=== PATIENT | male | born 1940 | race Caucasian/White ===

== ENCOUNTER 2019-11-02 00:39 | Outpatient (CLI) | payer MEDICARE, SELFPAY | END 2019-11-02 00:40 | disposition home or self-care (01) | LOC: ANHCOVIDDT 00:39 | PROVIDERS: PCP Family Medicine; Visit Provider Internal Medicine Gastroenterology | DX: Z01.818 Encounter for other preprocedural examination (principal); Z11.59 Encounter for screening for other viral diseases | CPT/HCPCS: 87635; U0003 ==

== ENCOUNTER 2019-11-05 01:40 | Day surgery (SDC) | payer MEDICARE, SELFPAY ==
[2019-10-31 11:21] VITALS: BMI 18.3
--- NOTE | 2019-11-05 07:58 | WPDANESEPPF ---
Anes - Initial Pre Proc Eval Procedure: Operation Date: 11/05/19 09:00 Proposed Procedures p Esophagogastroduodenoscopy - Sushant Maynard MD Date/Time: 11/05/19 07:58 Surgeon: Sushant Maynard MD Pre Op Diagnosis: Dysphagia Patient Data Age: 78 Gender: M Height: 6 ft 5 in Weight: 70 kg Allergies Allergy/AdvReac Type Severity Reaction Status Date / Time Penicillins Allergy Severe difficulty Verified 10/31/19 11:11 moving legs Contrast Media Allergy Intermediate Hives Uncoded 10/31/19 11:11 Home Medications Medication Instructions Recorded Confirmed Type atorvastatin 10 mg tablet 10 mg PO DAILY 07/25/19 10/31/19 History fluticasone 250 mcg-salmeterol 50 1 inhalation INHALATION BID 07/25/19 10/31/19 History mcg/dose blistr powdr for inhalation tiotropium bromide 18 mcg capsule 1 cap INHALATION DAILY 07/25/19 10/31/19 History with inhalation device nifedipine 30 mg tablet,extended 30 mg PO DAILY 07/26/19 10/31/19 History release aspirin 325 mg PO DAILY 10/31/19 10/31/19 History lisinopril 20 mg PO DAILY 10/31/19 10/31/19 History Patient hx anesthesia problems: none Family hx anesthesia problems: none PMFSH Past Medical History Medical History (Updated 11/05/19 @ 07:58 by Soy Duval MD) CAD (coronary artery disease) CPAP (continuous positive airway pressure) dependence Essential (primary) hypertension Surgical History Surgical History (Updated 11/05/19 @ 07:58 by Soy Duval MD) Hx of CABG Family History Family History Other Family history of lung cancer Social History Social History Smoking status: Former smoker Smoking end date: 06/19/08 Anes - Eval Final PreProcedure Day of Procedure 11/05/19 07:58 Patient weight: thin Heart: regular rate and rhythm Lungs: decreased breath sounds Airway: Mallampati scale class 1 Neurological: alert and oriented Last oral intake: >/= 8 hours ASA classification: III Emergent: no Anesthetic plan: proceed Anesthesia type and monitoring: general GIVS and standard monitoring Informed Consent: The patient's anesthetic plan and its attendant risks and benefits were discussed with the patient/family/POA. Questions were solicited and answers provided to the satisfaction of the patient/family/POA.
[2019-11-05 08:03] VITALS: BP 111/75; PULSE 68; RESP 16; TEMP 36.6; O2SAT 94
[2019-11-05] MEDS: LACTATED RINGERS 1,000 ML 150 ML IV CONT (08:09)
--- NOTE | 2019-11-05 08:09 | WPDGICN ---
Assessment and Plan Assessment and plan (1) Dysphagia: Code(s): R13.10 - Dysphagia, unspecified Status: Acute Assessment and Plan: Patient has complaints of difficulty swallowing for the last 2 months. 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 Plan is for EGD to assess for to esophageal narrowing. Possible dilatation. Depending on results of this he may benefit from acid suppression and anti-reflux measures. Further recommendations will be given after endoscopy. (2) COPD mixed type: Code(s): J44.9 - Chronic obstructive pulmonary disease, unspecified Status: Acute GI Consult Note Consult date/time: 11/05/19 08:09 HPI: Jase Knight is a 78 year old male Seen in evaluation at the request of Dr. Saeid Liz. Patient reports difficulty swallowing over the last 2 months. Food will catch in the mid substernal portion of the chest. He states that will cause burning. He occasionally has emesis. He denies any overt heartburn. He has lost 20 lb over the last year. Typically weighs 185 currently approximately 165. In the past he had an endoscopy that revealed distal esophageal web. Previously advised to use PPI he no longer required this medication and has not taken it for several years. [facility] Past Medical History Medical History CAD (coronary artery disease) CPAP (continuous positive airway pressure) dependence Essential (primary) hypertension Surgical History Surgical History Hx of CABG Family History Family History Other Family history of lung cancer Social History Social History Smoking status: Former smoker Smoking end date: 06/19/08 Meds Home Medications and Allergies Home Medications Medication Instructions Recorded Confirmed Type atorvastatin 10 mg tablet 10 mg PO DAILY 07/25/19 10/31/19 History fluticasone 250 mcg-salmeterol 50 1 inhalation INHALATION BID 07/25/19 10/31/19 History mcg/dose blistr powdr for inhalation tiotropium bromide 18 mcg capsule 1 cap INHALATION DAILY 07/25/19 10/31/19 History with inhalation device nifedipine 30 mg tablet,extended 30 mg PO DAILY 07/26/19 10/31/19 History release aspirin 325 mg PO DAILY 10/31/19 10/31/19 History lisinopril 20 mg PO DAILY 10/31/19 10/31/19 History Allergies Allergy/AdvReac Type Severity Reaction Status Date / Time Penicillins Allergy Severe difficulty Verified 11/05/19 08:01 moving legs Contrast Media Allergy Intermediate Hives Uncoded 11/05/19 08:01 Vital Signs Vital Signs - 24 hr 11/05/19 08:03 Temperature 36.6 C Pulse Rate 68 Respiratory Rate 16 Blood Pressure 111/75 Pulse Oximetry 94 Exam Narrative: Exam Narrative: Physical exam reveals patient to be alert. Vital signs stable. HEENT exam unremarkable. He is anicteric. Lungs are clear to auscultation and percussion. Heart is without murmur or extra sounds. Abdominal exam bowel sounds are present soft nontender with no hepatosplenomegaly.
[2019-11-05] MEDS: BENZOCAINE (*SP) 60 ML SPRAY CAN (HURRICAINE) 1 SPRAY MUCOUS MEM (09:00)
[2019-11-05 09:13] VITALS: BP 106/66; PULSE 63; RESP 18; O2SAT 98
[2019-11-05 09:23] VITALS: BP 108/64; PULSE 72; RESP 18; O2SAT 96
[2019-11-05 09:33] VITALS: BP 93/56; PULSE 65; RESP 21; O2SAT 96
== END 2019-11-05 09:43 | disposition home or self-care (01) ==
PROVIDERS: PCP Family Medicine; Visit Provider Internal Medicine Gastroenterology
PROC: 0DJ08ZZ Inspection of Upper Intestinal Tract, Via Natural or Artificial Opening Endoscopic (ICD-10-PCS; CPT 43235; principal; 2019-11-05 09:00)
DX: K22.2 Esophageal obstruction (principal); K21.0 Gastro-esophageal reflux disease with esophagitis; K44.9 Diaphragmatic hernia without obstruction or gangrene; J44.9 Chronic obstructive pulmonary disease, unspecified; I10 Essential (primary) hypertension; I25.10 Atherosclerotic heart disease of native coronary artery without angina pectoris; G47.33 Obstructive sleep apnea (adult) (pediatric); Z87.891 Personal history of nicotine dependence; Z79.82 Long term (current) use of aspirin
CPT/HCPCS: 43235; 43450; 87635; C9803; J2001; J2704; J7120; U0003

== ENCOUNTER 2019-11-22 20:17 | Emergency (ER) | payer MEDICARE, SELFPAY ==
--- NOTE | ~2019-11-22 | CT_ITS ---
EXAMINATION: CT abdomen pelvis wo con DATE: 11/22/2019 23:33 INDICATION: Left lower quadrant abdominal pain and vomiting TECHNIQUE: Computed tomography (CT) of the abdomen and pelvis was performed without intravenous contr ast. Automated exposure control and iterative reconstruction technique were employed. The dose-length product was 272.85 mGy-cm. COMPARISON: 07/31/2017 and 12/18/2018 FINDINGS: No interval change since the most recent chest CT in small centrilobular nodules and tree-in-bud opac ities in the bilateral lower lobes likely related to chronic infection/inflammation. Moderate emphyse ma. Heart size is normal. Atherosclerotic coronary artery calcifications. Aortic valve calcification. Postoperative change of prior median sternotomy and coronary artery bypass grafting. No pericardial or pleural effusion. Moderate-sized sliding-type hiatal hernia. Cholecystectomy clips the gallbladder fossa. Hepatic and splenic calcifications likely sequela of old granulomatous disease. Pancreas and bilateral adrenal glands are normal. Bilateral renal cysts, the larger on the right measuring 8.0 cm with partially calcified thin internal septation. Normal appendix. No dilated small bowel to suggest obstruction. Fluid throughout the colon consistent with diarrhea. Numerous diverticula along the sigm oid colon which demonstrates prominent wall thickening and surrounding inflammatory stranding at the proximal sigmoid colon consistent with diverticulitis. No abscess or free intraperitoneal gas or flui d. Mild diffuse bladder wall thickening. Prostatomegaly. Several surgical clips at the right inguinal region likely related to prior vascular access. There is calcified atherosclerosis of the aorta and many of the other arteries. Abdominal aortic-biiliac endoluminal stent graft beginning immediately c audal to the level of the portion of the superior mesenteric artery and extending to the bifurcation of the bilateral common iliac arteries. Mild lumbar spondylosis with unchanged sclerotic bone island at L1. IMPRESSION: 1. Radiographic uncomplicated sigmoid diverticulitis. 2. Moderate-sized sliding-type hiatal hernia. 3. Diffuse smooth bladder wall thickening which may be related to chronic outlet obstruction from the enlarged prostate. Differential would include cystitis either acute or chronic and would correlate w ith urinalysis. 4. Multiple chronic small centrilobular nodules and tree-in-bud opacities in the bilateral lower lobe s consistent with sequela of chronic infection or inflammation. Reviewed, dictated and finalized at location A. IMPRESSION: 1. Radiographic uncomplicated sigmoid diverticulitis. 2. Moderate-sized sliding-type hiatal hernia. 3. Diffuse smooth bladder wall thickening which may be related to chronic outle t obstruction from the enlarged prostate. Differential would include cystitis e ither acute or chronic and would correlate with urinalysis. 4. Multiple chronic small centrilobular nodules and tree-in-bud opacities in th e bilateral lower lobes consistent with sequela of chronic infection or inflamm ation.
[2019-11-22 20:17] VITALS: BP 120/68; PULSE 88; RESP 15; TEMP 36.7; O2SAT 100
[2019-11-22 20:32] VITALS: BP 114/87
[2019-11-22 20:34] LABS: Basophils Absolute Auto 0.1 K/mm3 (0.0-0.1); Basophils Percent Auto 0.5 % (0.2-1.2); Eosinophils Absolute Auto 0.1 K/mm3 (0-0.3); Eosinophils Percent Auto 0.2 % (0-4.4); Hematocrit 45.9 % (42.0-52.0); Hemoglobin 14.7 g/dL (14.0-18.0); Immature Granulocyte Absolute 0.09 K/mm3 (0.00-0.031); Immature Granulocyte Percent A 0.4 % (0-0.5); Lymphocytes Absolute Auto 0.79 K/mm3 (0.9-3.2); Lymphocytes Percent Auto 3.7 % (18.3-44.2); Mean Corpuscular Hemoglobin 29.1 pg (26-34); Mean Corpuscular Volume 90.7 fl (80-100); Mean Platelet Volume 9.3 fl (7.4-10.4); Monocytes Absolute Auto 0.9 K/mm3 (0.1-0.6); Monocytes Percent Auto 4.1 % (2.6-8.5); Neutrophils Absolute Auto 19.3 K/mm3 (1.3-6.7); Neutrophils Percent Auto 91.1 % (45.5-73.1); Platelet Count Result 244 k/mm3 (150-375); Red Blood Count 5.06 M/mm3 (4.6-6.20); Red Cell Distribution Width 14.6 % (11.5-14.5); White Blood Count 21.2 K/mm3 (4.5-10.0)
[2019-11-22 20:46] LABS: Alanine Aminotransferase 15 U/L (4-50); Albumin Level 4.2 g/dL (3.5-5.1); Alkaline Phosphatase 136 U/L (38-126); Aspartate Amino Transferase 34 U/L (17-59); Bilirubin,Total 0.4 mg/dL (0.2-1.3); Blood Urea Nitrogen 26 mg/dL (9-20); Carbon Dioxide 25 mmol/L (22-30); Chloride 105 mmol/L (98-107); Estimated CRCL calculation 38 ml/min; Estimated Glomerular Filt Rate 46; Glucose 115 mg/dL (75-110); Lipase 170 U/L (23-300); Potassium 4.8 mmol/L (3.4-5.0); Sodium 137 mmol/L (137-145)
[2019-11-22 21:01] VITALS: BP 131/79
[2019-11-22 21:16] VITALS: BP 129/81
[2019-11-22 21:31] VITALS: BP 132/83
[2019-11-22 22:30] LABS: Add Urine Microscopic? YES; Appearance Urine Clear (Clear); Bacteria Urine Trace /hpf; Bilirubin Urine Negative (Negative); Blood Urine Negative (Negative); Color Urine Yellow (Yellow); Glucose Urine UA Negative (Negative); Ketones Urine Negative (Negative); Leukocyte Esterase Ur Negative LEU/UL (Negative); Mucus Urine Rare /lpf; Nitrate Urine Negative (Negative); Protein Urine 1+ mg/dL (Negative); RBC Urine 0-2 /hpf (0-2); Specific Grav Ur 1.011 (1.001-1.035); Urobilinogen Urine Negative mg/dL (<2.0); WBC Urine 0-3 /hpf
--- NOTE | 2019-11-22 22:45 | ED.ABDPAIN ---
HPI - Abdominal Pain General Chief Complaint: Abdominal Pain Stated Complaint: abd pain Time Seen by Provider: 11/22/19 22:38 Source: patient and family History of Present Illness HPI narrative: Patient presents with his daughter for 5 hours of left lower quadrant pain. Started today, and was 9 out of 10 at home. He has had some vomiting. No fever chills or sweats. He has had 2 bowel movements since this all started, and his pain is decreased to [address] Maynard is his GI specialist and he does not need another colonoscopy until he is 89 years old. He has a history of AAA repair, and bypass surgery. He still smokes cigarettes, and sometimes drinks alcohol. MD elicited complaint: abdominal pain Onset (ago): hour(s) Pain Consistency: constant Related Data Home Medications Medication Instructions Recorded Confirmed atorvastatin 10 mg tablet 10 mg PO DAILY 07/25/19 10/31/19 fluticasone 250 mcg-salmeterol 50 1 inhalation INHALATION BID 07/25/19 10/31/19 mcg/dose blistr powdr for inhalation tiotropium bromide 18 mcg capsule 1 cap INHALATION DAILY 07/25/19 10/31/19 with inhalation device nifedipine 30 mg tablet,extended 30 mg PO DAILY 07/26/19 10/31/19 release aspirin 325 mg PO DAILY 10/31/19 10/31/19 lisinopril 20 mg PO DAILY 10/31/19 10/31/19 Allergies Allergy/AdvReac Type Severity Reaction Status Date / Time Penicillins Allergy Severe difficulty Verified 11/05/19 08:01 moving legs Contrast Media Allergy Intermediate Hives Uncoded 11/05/19 08:01 Review of Systems Review of Systems: Narrative: CONSTITUTIONAL: Denies fever, chills, or sweats. EYES: Denies visual changes, redness, or discharge. ENT: Denies rhinorrhea, congestion, sore throat, or otalgia. CARDIOVASCULAR: Denies chest pain, palpitations, or edema. RESPIRATORY: Denies cough or dyspnea. GASTROINTESTINAL: Denies diarrhea. GENITOURINARY: Denies dysuria or hematuria. SKIN: Denies rash or itching. MUSCULOSKELETAL: Denies back pain, joint pain, or myalgia. NEUROLOGIC: Denies headache, numbness, or weakness. PSYCHIATRIC: Denies anxiety or depression. [facility] Past Medical History Medical History CAD (coronary artery disease) CPAP (continuous positive airway pressure) dependence Essential (primary) hypertension Surgical History Surgical History Hx of CABG Social History Social History Smoking status: Former smoker Smoking end date: 06/19/08 Gender identity (if verbalized by the patient): Male Exam Narrative: Exam Narrative: GENERAL: Well-appearing, well-nourished, and in no acute distress. Very thin HEAD: Normocephalic, atraumatic. EYES: PERRLA and EOMI. ENT: Nares clear, no rhinorrhea or epistaxis. Mucous membranes moist. NECK: Supple. CHEST: Clear to auscultation. No respiratory distress. HEART: Regular rate and rhythm. No murmur heard. Normal peripheral pulses. ABDOMEN: Soft, nontender, nondistended, normal active bowel sounds. EXTREMITIES: Normal range of motion. No edema. SKIN: Warm, dry, no rash. NEURO: No focal deficits. Alert and oriented x3. PSYCH: Normal mood and affect. Course Reevaluation(s) Reevaluation #1: Went in to tell the patient and his daughter that his CAT scan shows diverticulitis and hiatal hernia. He is no longer vomiting and would prefer to go home and take his antibiotics at home. I warned him to return if he starts vomiting cannot hold on his antibiotics, or if the pain gets worse, like an appendix would. They agree. His pain is currently 4 out of 10. Date: 11/23/19 Time: 00:07 Vital Signs Vital signs: Vital Signs Temperature 98.1 F 11/22/19 20:17 Pulse Rate 88 11/22/19 20:17 Respiratory Rate 15 11/22/19 20:17 Blood Pressure 120/68 11/22/19 20:17 Pulse Oximetry 100 11/22/19 20:17 Temperature 98.1 F 11/22/19
[2019-11-22] MEDS: CIPROFLOXACIN 400 MG/D5W 200ML 200 ML 200 MG IVPB (22:51)
[2019-11-22 22:54] VITALS: BP 103/66; PULSE 101; RESP 15; O2SAT 92
[2019-11-23] MEDS: metroNIDAZOLE 500 MG/ISO 100ML 500 MG/100 ML BAG 100 MG IVPB (00:22)
[2019-11-23 00:23] VITALS: BP 100/80; PULSE 91; RESP 15; O2SAT 97
[2019-11-23 01:20] VITALS: BP 124/82; PULSE 88; RESP 14; O2SAT 98
== END 2019-11-23 01:20 | disposition home or self-care (01) ==
PROVIDERS: Emergency Provider Emergency Medicine; PCP Family Medicine
DX: K57.92 Diverticulitis of intestine, part unspecified, without perforation or abscess without bleeding (principal); I10 Essential (primary) hypertension; I25.10 Atherosclerotic heart disease of native coronary artery without angina pectoris; Z95.1 Presence of aortocoronary bypass graft; K44.9 Diaphragmatic hernia without obstruction or gangrene; R93.41 Abnormal radiologic findings on diagnostic imaging of renal pelvis, ureter, or bladder; Z79.82 Long term (current) use of aspirin
CPT/HCPCS: 36415; 51701; 74176; 80053; 81001; 83690; 85025; 96365; 96368; 99284; J0744

== ENCOUNTER → 2020-01-09 09:09 | Outpatient (CLI) | payer MEDICARE, SELFPAY ==
--- NOTE | ~2020-01-09 | CT_ITS ---
EXAMINATION:CT lung screening DATE: 01/09/2020 09:47 INDICATION: Personal history of nicotine dependence. Smoker who quit in June with 30 pack year his tory. TECHNIQUE: Computed tomography (CT) of the chest was performed without intravenous contrast. Automate d exposure control and iterative reconstruction technique were employed. The dose-length product (DLP ) was 77.74 mGy-cm. COMPARISON: Chest CT 12/18/2018 FINDINGS: There is moderate emphysema. There is mucous plugging in the lower lobes. There are mild gr oundglass opacities in the lower lobes, left worse than right, likely atelectasis. There is a 3 mm no dule in left lower lobe. There are chronic peripheral airspace opacities in right upper lobe and supe rior segment right lower lobe, likely scarring. There is paramediastinal mild scarring in the upper l obes anteriorly. No pleural effusion. The heart size is normal. There are coronary artery calcificati ons. No pericardial effusion. There is a moderate-sized sliding hiatal hernia. There are cysts in rig ht kidney measuring up to 4.1 cm. There is a stent graft in abdominal aorta. There are changes of cho lecystectomy. There is severe thoracic spondylosis. There is a chronic sclerotic lesion in L1 vertebr al body, likely a hemangioma. IMPRESSION: 1. Lung-RADS category 2: Benign appearance or behavior. Continue annual screening with noncontrast lo w-dose chest CT in 12 months. Reviewed, dictated and finalized at location A. IMPRESSION: 1. Lung-RADS category 2: Benign appearance or behavior. Continue annual screeni ng with noncontrast low-dose chest CT in 12 months.
== END ==
PROVIDERS: PCP Family Medicine; Visit Provider Internal Medicine Critical Care Medicine
DX: Z12.2 Encounter for screening for malignant neoplasm of respiratory organs (principal); Z87.891 Personal history of nicotine dependence
CPT/HCPCS: G0297

== ENCOUNTER 2021-09-19 17:26 | Emergency (ER) | payer MEDICARE, SELFPAY ==
[2021-09-19] VITALS (19 sets, daily range): BP systolic 140–158; BP diastolic 75–85; PULSE 58–73; RESP 11–22; TEMP 36.5; O2SAT 95–100
--- NOTE | ~2021-09-19 | CT_ITS ---
EXAMINATION: Sushant Levi, DO DATE: 09/19/2021 18:54 INDICATION: Upper abdominal pain. TECHNIQUE: Computed tomographic angiography (CTA) of the chest, abdomen, and pelvis was performed wit h 100 mL Omnipaque-350 intravenous contrast. Automated exposure control and iterative reconstruction technique were employed. The dose-length product was 492.78 mGy-cm. Maximum intensity projection 3D-r econstructions of the aorta and other arteries were constructed by the technologist on a separate wor kstation. COMPARISON: Chest CT 01/09/2020, CT abdomen and pelvis 11/22/2019, 07/31/17 FINDINGS: CHEST CTA: There is moderate emphysema. There are worsened airspace and groundglass opacities and centrilobular nodules involving the lower lobes, left worse than right, consistent with pneumonia. There is materia l in bronchi in the lower lobes. There is mild scarring at left lung apex. There are centrilobular no dules in anterior segment left upper lobe, consistent with pneumonia. Again seen is peripheral scarri ng in right upper lobe. No pleural effusion. Tracheomegaly is noted. The heart size is normal. There are coronary artery calcifications. There are changes of coronary artery bypass grafting. No pericard ial effusion. There is mild mediastinal lymphadenopathy, likely reactive. There is a large sliding hi atal hernia. There is severe cervical spondylosis and moderate thoracic spondylosis. ABDOMEN AND PELVIS CTA: Calcifications in the liver consistent with old granulomatous disease. There are multiple chronic hyp erenhancing masses in the liver measuring up to 15 mm, likely focal nodular hyperplasia or hemangioma s. There is mild intrahepatic duct dilatation and dilatation of the common duct to 15 mm, worsened fr om 12 mm on 11/22/19. The pancreatic duct is mildly dilated. Right adrenal gland is normal. There is th ickening of left adrenal gland, likely benign. There is cortical thinning of the kidneys. There are c ysts in the kidneys measuring up to 8.6 cm on the right. The prostate is moderately enlarged. There i s diverticulosis of the colon without evidence of diverticulitis. The appendix is normal. There are n o pathologically enlarged lymph nodes. There is no free intraperitoneal fluid. There is a fusiform an eurysm of infrarenal aorta measuring 3.4 cm with stent graft in expected position, stable from 8. No endoleak. There is no significant stenosis of celiac axis, superior mesenteric artery, or right renal artery. There is moderate stenosis of left renal artery origin. There is severe lumbar spondyl osis. IMPRESSION: 1. Pneumonia involving the lower lobes and left upper lobe, worst in left lower lobe. 2. Moderate emphysema. 3. Mild mediastinal lymphadenopathy, likely reactive. 4. Large sliding hiatal hernia. 5. 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 No endo leak. 6. 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 7. Mild intrahepatic and extrahepatic biliary duct dilatation and mildly dilatated pancreatic duct, w orsened from 11/22/19. Reviewed, dictated and finalized at location E. IMPRESSION: 1. Pneumonia involving the lower lobes and left upper lobe, worst in left lower lobe. 2. Moderate emphysema. 3. Mild mediastinal lymphadenopathy, likely reactive. 4. Large sliding hiatal hernia. 5. Stable 3.4 cm fusiform aneurysm of infrarenal aorta with stent graft in expe cted position. No endoleak. 6. 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 7. Mild intrahepatic and extrahepatic biliary duct dilatation and mildly dilata flavia pancreatic duct, worsened from 11/22/19.
--- NOTE | ~2021-09-19 | XR_ITS ---
EXAMINATION: XR chest 2V DATE: 09/19/2021 18:27 INDICATION: Chest pain. TECHNIQUE: Frontal and lateral views of the chest were obtained. COMPARISON: Chest 2 views 06/16/2015, chest CT 01/09/2020 FINDINGS: There is chronic scarring at the lung apices, right worse than left. There are airspace opa cities in left lower lung zone. No pleural effusion or pneumothorax. The heart size is normal. Median sternotomy wires and mediastinal surgical clips are seen, likely from prior coronary artery bypass g rafting. There is a large hiatal hernia. There is a stent graft in abdominal aorta. There is an old h ealed fracture of left clavicle. IMPRESSION: 1. Airspace opacities in left lower lung zone, consistent with atelectasis/scarring versus pneumonia. 2. Chronic scarring at the lung apices, right worse than left. 3. Large hiatal hernia. Reviewed, dictated and finalized at location E. IMPRESSION: 1. Airspace opacities in left lower lung zone, consistent with atelectasis/scar ring versus pneumonia. 2. Chronic scarring at the lung apices, right worse than left. 3. Large hiatal hernia.
--- NOTE | 2021-09-19 17:34 | ECG_ITS ---
Measurements Intervals Inlet Rate: 58 P: -76 NH: 146 QRS: 41 QRSD: 137 T: -56 QT: 483 QTc: 476 Interpretive Statements ECTOPIC ATRIAL BRADYCARDIA INTRAVENTRICULAR CONDUCTION DELAY Electronically Signed On 09-20-2021 14:26:12 CDT by Dante Cornelius M.D.
--- NOTE | 2021-09-19 17:44 | ED.ABDPAIN ---
HPI - Abdominal Pain General Chief Complaint: Chest Pain <Sushant Levi DO - Last Filed: 09/19/21 18:52> Stated Complaint: chest pain <Sushant Levi DO - Last Filed: 09/19/21 18:52> Time Seen by Provider: 09/19/21 17:36 <Sushant Levi DO - Last Filed: 09/19/21 18:52> Source: patient and family <Sushant Levi DO - Last Filed: 09/19/21 18:52> Mode of arrival: ambulatory <Sushant Levi DO - Last Filed: 09/19/21 18:52> History of Present Illness HPI narrative: 80-year-old male presents emergency room secondary to acute onset of upper abdominal pain in the epigastric region. Started short-term prior to come to emergency room. Corneas family member got extremely pale at the time of the onset of the pain. Patient does have an extensive history of coronary artery disease having undergone four-vessel coronary artery bypass grafting many years ago. Since that time he said no additional problems with his cardiac issues. 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 He points just to the epigastric region is where the pain is he is having pain into his back. However he states he chronically has some pain in the back and not sure that this is any different. He denies any pressure across his chest. And denies any radiation of pain to his arms or legs. He has got no associated shortness of breath. <Sushant Levi DO - Last Filed: 09/19/21 18:52> Related Data Home Medications: Home Medications Medication Instructions Recorded Confirmed aspirin 325 mg tablet 325 mg PO .qod tablet 11/09/20 07/14/21 fluticasone 250 mcg-salmeterol 50 1 inh INHALATION BID 05/06/21 07/14/21 mcg/dose blistr powdr for inhalation lisinopril 10 mg tablet 10 mg PO DAILY 05/06/21 07/14/21 <Sushant Levi DO - Last Filed: 09/19/21 18:52> Allergies/Adverse Reactions: Allergies Allergy/AdvReac Type Severity Reaction Status Date / Time Penicillins Allergy Severe difficulty Verified 07/14/21 10:42 moving legs Contrast Media Allergy Intermediate Hives Uncoded 09/19/21 18:11 <Sushant Levi DO - Last Filed: 09/19/21 18:52> Review of Systems Review of Systems: CONSTITUTIONAL: Denies fever, chills, or sweats. EYES: Denies visual changes, redness, or discharge. ENT: Denies rhinorrhea, congestion, sore throat, or otalgia. CARDIOVASCULAR: Denies chest pain, palpitations, or edema. RESPIRATORY: Denies cough or dyspnea. GASTROINTESTINAL: As noted in the HPI patient has epigastric abdominal pain. Has no associated nausea, vomiting, or diarrhea GENITOURINARY: Denies dysuria or hematuria. SKIN: Denies rash or itching. MUSCULOSKELETAL: Denies back pain, joint pain, or myalgia. NEUROLOGIC: Denies headache, numbness, or weakness. PSYCHIATRIC: Denies anxiety or depression. <Sushant Levi DO - Last Filed: 09/19/21 18:52> [facility] Past Medical History Medical History: Medical History CAD (coronary artery disease) Coronary artery disease CPAP (continuous positive airway pressure) dependence Essential (primary) hypertension Gastroesophageal reflux disease with stricture Heart attack High blood pressure High cholesterol CEDRIC on CPAP Seborrheic keratoses <Sushant Levi DO - Last Filed: 09/19/21 18:52> Surgical History Surgical History: Surgical History H/O abdominal surgery H/O heart bypass surgery Hx of CABG <Sushant Levi DO - Last Filed: 09/19/21 18:52> Family History Family History: Family History Mother Family history of lung cancer Father Non-Hodgkin lymphoma <Sushant Levi DO - Last Filed: 09/19/21 18:52> Social History Social History: Social History Smoking pa
[2021-09-19] MEDS: ASPIRIN 81 MG CHEWABLE TABLET 324 MG PO (17:45)
[2021-09-19 17:46] LABS: Basophils Absolute Auto 0.1 K/mm3 (0.0-0.1); Basophils Percent Auto 0.8 % (0.2-1.2); Eosinophils Absolute Auto 0.1 K/mm3 (0-0.3); Eosinophils Percent Auto 1.4 % (0-4.4); Hemoglobin 12.6 g/dL (14.0-18.0); Immature Granulocyte Absolute 0.03 K/mm3 (0.00-0.031); Immature Granulocyte Percent A 0.3 % (0-0.5); Lymphocytes Absolute Auto 1.82 K/mm3 (0.9-3.2); Mean Corpuscular HGB Conc 31.5 g/dl (32-36); Mean Corpuscular Hemoglobin 28.6 pg (26-34); Mean Corpuscular Volume 90.7 fl (80-100); Mean Platelet Volume 9.1 fl (7.4-10.4); Monocytes Absolute Auto 0.7 K/mm3 (0.1-0.6); Monocytes Percent Auto 6.9 % (2.6-8.5); Neutrophils Absolute Auto 6.9 K/mm3 (1.3-6.7); Neutrophils Percent Auto 71.6 % (45.5-73.1); Platelet Count Result 213 k/mm3 (150-375); Red Blood Count 4.41 M/mm3 (4.6-6.20); Red Cell Distribution Width 15.2 % (11.5-14.5); White Blood Count 9.6 K/mm3 (4.5-10.0)
[2021-09-19] MEDS: diphenhydrAMINE HCl INJ 50 MG/ML VIAL 25 MG IV PUSH (18:08)
[2021-09-19 18:09] LABS: Troponin I < 0.012 ng/mL (0.000-0.034)
[2021-09-19 18:11] LABS: INR 1.1
[2021-09-19 18:12] LABS: Partial Thromboplastin Time 36.9 SECONDS (22.3-36.8)
[2021-09-19 18:39] LABS: Alanine Aminotransferase 20 U/L (4-50); Albumin Level 3.9 g/dL (3.5-5.1); Alkaline Phosphatase 139 U/L (38-126); Anion Gap 5 mmol/L (8-16); Aspartate Amino Transferase 50 U/L (17-59); Bilirubin,Total 0.5 mg/dL (0.2-1.3); Blood Urea Nitrogen 22 mg/dL (9-20); Calcium 8.4 mg/dL (8.4-10.2); Carbon Dioxide 24 mmol/L (22-30); Chloride 108 mmol/L (98-107); Estimated CRCL calculation 51 ml/min; Estimated Glomerular Filt Rate > 60; Glucose 104 mg/dL (65-110); Lipase 125 U/L (23-300); Potassium 4.3 mmol/L (3.4-5.0); Sodium 137 mmol/L (137-145)
[2021-09-19 20:52] LABS: Troponin I < 0.012 ng/mL (0.000-0.034)
== END 2021-09-19 21:50 | disposition home or self-care (01) ==
PROVIDERS: Emergency Medicine; Emergency Provider Emergency Medicine; PCP Family Medicine
DX: R10.13 Epigastric pain (principal); J18.9 Pneumonia, unspecified organism; I25.10 Atherosclerotic heart disease of native coronary artery without angina pectoris; I10 Essential (primary) hypertension; I25.2 Old myocardial infarction; E78.00 Pure hypercholesterolemia, unspecified; G47.33 Obstructive sleep apnea (adult) (pediatric); Z79.82 Long term (current) use of aspirin; Z95.1 Presence of aortocoronary bypass graft; F17.210 Nicotine dependence, cigarettes, uncomplicated; K44.9 Diaphragmatic hernia without obstruction or gangrene; J43.9 Emphysema, unspecified; I71.4 Abdominal aortic aneurysm, without rupture; I70.1 Atherosclerosis of renal artery; R93.2 Abnormal findings on diagnostic imaging of liver and biliary tract; R00.1 Bradycardia, unspecified; I45.9 Conduction disorder, unspecified
CPT/HCPCS: 36415; 71046; 71275; 74174; 80053; 83690; 84484; 85025; 85610; 85730; 93005; 96374; 99284; A9270; J1200; Q9967

== ENCOUNTER → 2021-11-11 07:21 | Outpatient (CLI) | payer MEDICARE, SELFPAY ==
--- NOTE | ~2021-11-11 | XR_ITS ---
XR chest 2V DATE: 11/11/2021 08:02 INDICATION: Pneumonia TECHNIQUE: 2 views COMPARISON: 09/19/2021 2 view chest 01/09/2020 CT lung screening FINDINGS: Prominent bilateral hyperinflation with increased retrosternal airspace, flattening of the diaphragm, consistent with prominent emphysema. Chronic pulmonary and pleural scarring in the right upper chest. No pulmonary infiltrate or consolidation or pulmonary mass lesion is evident. No pleural effusion or pulmonary vascular congestion or pneumothorax. Status post sternotomy and coronary artery bypass graft surgery. Heart size is within normal range. Is aortic calcification. Moderate hiatal hernia. Diffuse osteopenia. IMPRESSION: Severe COPD; no active pulmonary disease Prominent bony pleural scarring, right apical area Status post sternotomy/CABG and aortic atherosclerosis Hiatal hernia Reviewed, dictated and finalized at location A.
== END ==
PROVIDERS: PCP Family Medicine; Visit Provider Nurse Practitioner Family
DX: J18.9 Pneumonia, unspecified organism (principal); J44.9 Chronic obstructive pulmonary disease, unspecified; Z95.1 Presence of aortocoronary bypass graft; K44.9 Diaphragmatic hernia without obstruction or gangrene; Z98.890 Other specified postprocedural states
CPT/HCPCS: 71046

== ENCOUNTER 2021-12-07 13:50 | Outpatient (CLI) | payer MEDICARE, SELFPAY ==
--- NOTE | ~2021-12-07 | XR_ITS ---
EXAMINATION: XR chest 2V DATE: 12/07/2021 11:50 INDICATION: Anemia, unspecified. TECHNIQUE: Frontal and lateral views of the chest were obtained. COMPARISON: Chest 2 views 11/11/2021, chest CT 09/19/2021 FINDINGS: The lungs are hyperexpanded with lucencies, consistent with emphysema. Again seen is asymme tric scarring at right lung apex. There are airspace opacities in the lower lung zones. No pleural ef fusion or pneumothorax. The heart size is normal. Median sternotomy wires and mediastinal surgical cl ips are seen, likely from prior coronary artery bypass grafting. There is a large hiatal hernia. Part ially visualized is a stent graft in abdominal aorta. IMPRESSION: 1. Worsened airspace opacities in the lower lung zones, consistent with pneumonia. 2. Emphysema. 3. Stable scarring at right lung apex. 4. Large hiatal hernia. Reviewed, dictated and finalized at location A. IMPRESSION: 1. Worsened airspace opacities in the lower lung zones, consistent with pneumon ia. 2. Emphysema. 3. Stable scarring at right lung apex. 4. Large hiatal hernia.
[2021-12-07 11:46] LABS: Hematocrit 39.7 % (42.0-52.0); Mean Corpuscular HGB Conc 32.7 g/dl (32-36); Mean Corpuscular Hemoglobin 28.8 pg (26-34); Mean Corpuscular Volume 87.8 fl (80-100); Mean Platelet Volume 9.3 fl (7.4-10.4); Platelet Count Result 267 k/mm3 (150-375); Red Blood Count 4.52 M/mm3 (4.6-6.20); White Blood Count 10.3 K/mm3 (4.5-10.0)
[2021-12-07 12:01] LABS: Alanine Aminotransferase 65 U/L (6-50); Albumin Level 3.6 g/dL (3.5-5.1); Alkaline Phosphatase 108 U/L (38-126); Anion Gap 7 mmol/L (8-16); Aspartate Amino Transferase 65 U/L (17-59); Bilirubin,Total 0.7 mg/dL (0.2-1.3); Blood Urea Nitrogen 23 mg/dL (9-20); Calcium 8.6 mg/dL (8.4-10.2); Carbon Dioxide 26 mmol/L (22-30); Chloride 103 mmol/L (98-107); Estimated Glomerular Filt Rate > 60; Glucose 102 mg/dL (65-110); Potassium 4.5 mmol/L (3.4-5.0); Sodium 136 mmol/L (137-145)
== END 2021-12-07 13:51 | disposition home or self-care (01) ==
PROVIDERS: PCP Family Medicine; Visit Provider Nurse Practitioner
DX: D64.9 Anemia, unspecified (principal); R53.83 Other fatigue; L98.9 Disorder of the skin and subcutaneous tissue, unspecified; R13.10 Dysphagia, unspecified; R06.02 Shortness of breath; R05.8 Other specified cough; J44.9 Chronic obstructive pulmonary disease, unspecified; R09.3 Abnormal sputum
CPT/HCPCS: 36415; 71046; 80053; 82248; 85027; 87070; 87205

== ENCOUNTER 2021-12-09 00:50 | Day surgery (SDC) | payer MEDICARE, SELFPAY ==
[2021-12-08 14:20] VITALS: BMI 16.4
--- NOTE | 2021-12-09 07:34 | WPDANESEPPF ---
Anes - Initial Pre Proc Eval Procedure: Operation Date: 12/09/21 10:45 Proposed Procedures p Esophagogastroduodenoscopy - Sushant Maynard MD Date/Time: 12/09/21 07:34 Surgeon: Sushant Maynard MD Pre Op Diagnosis: dysphagia Patient Data Age: 81 Gender: M Height: 1.93 m Weight: 61.23 kg Allergies Allergy/AdvReac Type Severity Reaction Status Date / Time Penicillins Allergy Severe difficulty Verified 12/09/21 09:37 moving legs Iodinated Contrast Media Allergy Intermediate Hives Verified 12/09/21 09:37 Home Medications Medication Instructions Recorded Confirmed Type tiotropium bromide 18 mcg capsule 1 cap inhalation DAILY 1 month #30 05/21/20 12/08/21 Rx with inhalation device (Spiriva caps with HandiHaler) aspirin 325 mg tablet 325 mg PO 3XW 11/09/20 12/08/21 History fluticasone 250 mcg-salmeterol 50 1 inh inhalation BID 05/06/21 12/08/21 History mcg/dose blistr powdr for inhalation (Advair Diskus) omeprazole 20 mg capsule,delayed 20 mg PO DAILY #90 caps 05/24/21 12/08/21 Rx release atorvastatin 10 mg tablet 10 mg PO DAILY #90 tabs 10/23/21 12/08/21 Rx lisinopril 20 mg tablet 20 mg PO DAILY #90 tabs 10/25/21 12/08/21 Rx nifedipine 30 mg tablet,extended 30 mg PO DAILY #90 tabs 11/21/21 12/08/21 Rx release albuterol sulfate 90 mcg/actuation 1 - 2 puff inhalation Q4-6H PRN 12/07/21 12/08/21 Rx aerosol inhaler shortness of breath or wheezing #8.5 grams levofloxacin 500 mg tablet 500 mg PO DAILY 5 days #5 tabs 12/07/21 12/08/21 Rx Patient hx anesthesia problems: none Family hx anesthesia problems: none Results Review: All pre-operative results and documents have been reviewed as part of the pre-operative evaluation. [facility] Past Medical History Medical History (Updated 12/09/21 @ 07:35 by Juvencio Lira DO) Abdominal aortic aneurysm (AAA) repaired in 2014 CAD (coronary artery disease) Coronary artery disease CPAP (continuous positive airway pressure) dependence Essential (primary) hypertension Gastroesophageal reflux disease with stricture Heart attack High blood pressure High cholesterol Hospital discharge follow-up Iron deficiency CEDRIC on CPAP Seborrheic keratoses SOB (shortness of breath) Weight loss Surgical History Surgical History H/O abdominal surgery H/O heart bypass surgery Hx of CABG Family History Family History Mother Family history of lung cancer Father Non-Hodgkin lymphoma Social History Social History Smoking packs per day: 2 Smoking cigarettes per day: 40.0 Years smoked: 60 Smoking pack-years: 120.00 Smoking status: Former smoker Tobacco type: cigarettes Alcohol intake: current Alcohol use details: rare Substance use: never Substance use type: does not use Living arrangements: with family Gender identity (if verbalized by the patient): Male Spiritual care concerns: No Agree to blood products: Yes Anes - Eval Final PreProcedure Day of Procedure 12/09/21 07:34 Patient weight: cachectic Heart: regular rate and rhythm Lungs: clear to auscultation Airway: Mallampati scale class II Neurological: alert and oriented Last oral intake: >/= 8 hours ASA classification: IV Emergent: no Anesthetic plan: proceed Anesthesia type and monitoring: general GIVS and standard monitoring Results Review: All pre-operative results and documents have been reviewed as part of the pre-operative evaluation. Informed Consent: The patient's anesthetic plan and its attendant risks and benefits were discussed with the patient/family/POA. Questions were solicited and answers provided to the satisfaction of the patient/family/POA.
[2021-12-09 09:38] VITALS: BP 111/67; PULSE 72; RESP 18; TEMP 36.8; O2SAT 94
[2021-12-09] MEDS: LACTATED RINGERS 1,000 ML 150 ML IV CONT (09:54)
--- NOTE | 2021-12-09 10:00 | WPDHPUPDATE1 ---
History and Physical Update Update Date/Time: 12/09/21 10:00 History and Physical has been reviewed, including an updated exam of the patient. There are NO changes in the patient's condition. Risks, benefits, and alternatives have been discussed and questions answered. Patient agrees to proceed with procedure.
[2021-12-09 10:24] VITALS: BP 87/62; PULSE 64; RESP 23; O2SAT 95
[2021-12-09 10:34] VITALS: BP 92/53; PULSE 63; RESP 21; O2SAT 100
[2021-12-09 10:44] VITALS: BP 91/57; BP 92/53; PULSE 62; RESP 22; O2SAT 95
--- NOTE | 2021-12-09 10:57 | SUR.PHASEII ---
Patient was finishing his cranberry juice and assisted dressing him causing patient to remain in post op.
== END 2021-12-09 11:05 | disposition home or self-care (01) ==
PROVIDERS: PCP Family Medicine; Visit Provider Internal Medicine Gastroenterology
PROC: 0DJ08ZZ Inspection of Upper Intestinal Tract, Via Natural or Artificial Opening Endoscopic (ICD-10-PCS; CPT 43235; principal; 2021-12-09 10:45)
DX: R13.19 Other dysphagia (principal); K44.9 Diaphragmatic hernia without obstruction or gangrene; K22.2 Esophageal obstruction; Z79.82 Long term (current) use of aspirin; Z79.51 Long term (current) use of inhaled steroids; I25.10 Atherosclerotic heart disease of native coronary artery without angina pectoris; I10 Essential (primary) hypertension; I25.2 Old myocardial infarction; E78.00 Pure hypercholesterolemia, unspecified; G47.33 Obstructive sleep apnea (adult) (pediatric); R06.02 Shortness of breath; E61.1 Iron deficiency; L82.1 Other seborrheic keratosis; Z95.1 Presence of aortocoronary bypass graft; Z87.891 Personal history of nicotine dependence
CPT/HCPCS: 43249; C1726; J2704; J7120

== ENCOUNTER 2021-12-30 06:37 | Outpatient (CLI) | payer MEDICARE, SELFPAY ==
--- NOTE | ~2021-12-30 | MR_ITS ---
EXAMINATION: MR MRCP wo/w con/w 3D wo ind DATE: 12/30/2021 08:03 INDICATION: Intra and extra hepatic biliary ductal dilation. TECHNIQUE: Magnetic resonance imaging (MRI) of the abdomen was performed without and with 11 mL Multi los intravenous contrast. Sequences included coronal T2-weighted SS-FSE, coronal T2-weighted FS SS- FSE, coronal T2-weighted FS FIESTA, axial T2-weighted FS FIESTA, axial T2-weighted FIESTA, sagittal T 2-weighted SS-FSE, axial T1-weighted dual-echo FSPGR, axial T2-weighted SS-FSE, axial T1-weighted LAV A, axial T2-weighted STIR FSE. Thick-slab T2-weighted FRFSE-XL images were obtained for magnetic reso nance cholangiopancreatography (MRCP). Rotating maximum intensity projection 3-D reconstructions of t he volumetric data were created by the technologist. Postcontrast sequences included a time course of axial T1-weighted LAVA. COMPARISON: CT dated 09/19/2021 FINDINGS: ABDOMEN MRI: Very small bilateral pleural effusions. Dependent lung disease in the bilateral lower lobes with smal l region of consolidation at the posterior right lower lobe which could represent atelectasis or pneu monia. There is prominent metallic magnetic field artifact associated with an abdominal aortobiiliac endoluminal stent graft which obscures the immediately adjacent soft tissues in the central abdomen a nd the anterior aspect of the lumbar spine. This includes the region of the common bile duct and head of the pancreas which are unable to be assessed. Mild intrahepatic biliary ductal dilation which is within normal limits post cholecystectomy. Bilateral renal cysts, the largest on the right measuring 8.8 cm at the lower pole and the largest on the left measuring 4.6 cm at the lower pole. Spleen is no rmal. The visualized body and tail of the pancreas are normal with the main pancreatic duct at the naeem dy of the pancreas measuring 2.5 mm which is normal and decreased from the time of the prior CT at ich time the duct measured 4-4.5 mm diameter at the same location. Visualized portion of the bowels a re unremarkable. Mild S-shaped curvature of the thoracolumbar spine. Bone marrow signal is unremarkab le. IMPRESSION: 1. Mild intrahepatic biliary ductal dilation which is within normal limits post cholecystectomy and i nterval resolution of the prior mild dilation of the main pancreatic duct. Assessment for obstructing lesions is limited by nonvisualization of the common bile duct and head of the pancreas due to promi nent metallic magnetic field artifact resulting from an aortobiiliac endoluminal stent graft. 2. Lung disease in the dependent aspect of the bilateral lower lobes with small region of consolidati on in the posterior right lower lobe. Differential would include atelectasis and pneumonia. 3. Very small bilateral pleural effusions. Reviewed, dictated and finalized at location B. IMPRESSION: 1. Mild intrahepatic biliary ductal dilation which is within normal limits post cholecystectomy and interval resolution of the prior mild dilation of the main pancreatic duct. Assessment for obstructing lesions is limited by nonvisualiza tion of the common bile duct and head of the pancreas due to prominent metallic magnetic field artifact resulting from an aortobiiliac endoluminal stent graft . 2. Lung disease in the dependent aspect of the bilateral lower lobes with small region of consolidation in the posterior right lower lobe. Differential would include atelectasis and pneumonia. 3. Very small bilateral pleural effusions.
== END 2021-12-30 06:38 | disposition home or self-care (01) ==
PROVIDERS: PCP Family Medicine; Visit Provider Nurse Practitioner
DX: R63.4 Abnormal weight loss (principal); R93.2 Abnormal findings on diagnostic imaging of liver and biliary tract; Z90.49 Acquired absence of other specified parts of digestive tract; R91.8 Other nonspecific abnormal finding of lung field; J90 Pleural effusion, not elsewhere classified
CPT/HCPCS: 74183; 76376; A9577

== ENCOUNTER → 2022-02-02 11:45 | Outpatient (CLI) | payer MEDICARE, SELFPAY ==
--- NOTE | ~2022-02-02 | XR_ITS ---
XR chest 2V 02/02/2022 12:02 Indication: Pneumonia. Procedure: 2 view chest Comparison: 12/07/2021 Findings: There is stable pleural thickening/scarring in the right apex. Status post median sternotom y for CABG. There is a small hiatal hernia. There is bibasilar atelectasis. No focal pneumonia, edema , pleural effusion or pneumothorax. No acute osseous abnormality. The lungs are hyperinflated which is consistent with, but not diagnostic of chronic obstructive pulmo nary disease. Impression: 1: Bibasilar atelectasis. 2: Chronic right apical pleural thickening/scarring. Reviewed, dictated and finalized at location B. Impression: 1: Bibasilar atelectasis. 2: Chronic right apical pleural thickening/scarring.
== END ==
PROVIDERS: PCP Family Medicine; Visit Provider Physician Assistant
DX: J18.9 Pneumonia, unspecified organism (principal); J98.11 Atelectasis; R91.8 Other nonspecific abnormal finding of lung field
CPT/HCPCS: 71046

== ENCOUNTER 2022-07-03 11:55 | Observation (INO) | payer MEDICARE, SELFPAY ==
[2022-07-03] VITALS (7 sets, daily range): BP systolic 101–111; BP diastolic 52–83; PULSE 56–68; RESP 16–20; TEMP 36.5; O2SAT 96–97
--- NOTE | ~2022-07-03 | XR_ITS ---
XR chest 1V portable DATE: 07/03/2022 13:11 INDICATION: Cough, shortness of breath. Covid-positive TECHNIQUE: Portable upright AP chest on 07/03/2022 at 1304 hours COMPARISON: 02/02/2022 PA and lateral chest 01/08/2022 CT lung screening FINDINGS: There are patchy infiltrates, primarily in the lower lung zones which may be due to pneumon ia or aspiration pneumonitis. There is chronic right upper lobe scarring. Bilateral hyperinflation, c onsistent with COPD. Status post sternotomy and coronary artery bypass graft surgery. Heart size appears within normal ran ge. Is aortic arch calcification. Abdominal aortic endovascular stent.. IMPRESSION: Patchy bilateral infiltrates, primarily in the lower lung zones; diffusion diagnosis incl udes pneumonia, aspiration pneumonitis COPD Chronic right upper lobe scarring Status post sternotomy, coronary bypass graft surgery Aortic atherosclerosis Osteopenia Reviewed, dictated and finalized at location A. 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
--- NOTE | 2022-07-03 12:32 | ECG_ITS ---
Measurements Intervals [place] Rate: 66 P: 74 MI: 165 QRS: 44 QRSD: 129 T: -71 QT: 459 QTc: 484 Interpretive Statements SINUS RHYTHM ATRIAL AND VENTRICULAR PREMATURE COMPLEXES INTRAVENTRICULAR CONDUCTION DELAY ST-T WAVE ABNORMALITY IN ANTEROLAT/INF LEADS- CONSIDER ISCHEMIA BASELINE ARTIFACT- I, II, III, AVR, AVF ABNORMAL ECG COMPARED TO ECG 09/19/2021 17:33:34 SINUS RHYTHM NOW PRESENT ST-T WAVE ABNORMALITY NOW PRESENT Electronically Signed On 07-03-2022 14:04:07 [employer] by Vick Juárez D.O.
[2022-07-03 12:56] LABS: Alveolar/Arterial O2 Gradient 32.2 mmHg; Base Excess ABG -0.2 mEq/l (+/-2.0); Carboxyhemoglobin 0.9 % THb (0-2.0); Fractional Inspired Oxygen 21 %; HCO3 ABG 21.8 mEq/l (22.0-26.0); Methemoglobin ABG 0.1 %THb (0-1.5); Oxygen Content ABG 18.1 %vol (16.0-22.0); Oxygen Saturation ABG 97.1 % (95.0-100.0); Oxyhemoglobin 95.1 % THb (90.0-100.0); PCO2 ABG 28.5 mmHg (35.0-45.0); PO2 ABG 83.4 mmHg (80.0-100.0); PO2 FiO2 Ratio Arterial Blood 3.97 %; Reduced Hemoglobin 3.9 %THb (0-5.0); Total Hemoglobin 13.5 g/dL (12.0-18.0)
[2022-07-03 12:58] LABS: Device ROOM AIR; Modified Allen's Test Pass; Site Drawn LEFT RADIAL; pH ABG 7.502 (7.350-7.450)
--- NOTE | 2022-07-03 13:09 | ED.SOB ---
HPI - SOB/Dyspnea General Chief Complaint: Shortness of Breath/Dyspnea Stated Complaint: covid positive on 9 /not feeling well Time Seen by Provider: 07/03/22 12:22 Source: patient and RN notes reviewed Mode of arrival: ambulatory Limitations: no limitations History of Present Illness HPI Narrative: This is a 81 year old male who presents for evaluation of shortness of breath. PAtient developed symptoms of covid 7 days ago and he tested positive 6 days ago. He has come for evaluation due to fatigue and shortness of breath. He states that he thinks he has lost his taste and he has decreased appetite. He also states he is short of breath when he walks around. He states his oxygen saturation drops to 70s when he walks around, and it returns to normal at rest. He denies chest pain or edema. He denies vomiting or diarrhea. Related Data Home Medications Medication Instructions Recorded Confirmed aspirin 325 mg tablet 325 mg PO 3XW 11/09/20 07/03/22 atorvastatin 10 mg tablet 10 mg PO HS 07/03/22 07/03/22 Allergies Allergy/AdvReac Type Severity Reaction Status Date / Time Penicillins Allergy Severe difficulty Verified 07/03/22 17:00 moving legs Iodinated Contrast Media Allergy Intermediate Hives Verified 07/03/22 17:00 Review of Systems Constitutional: Constitutional: Reports fatigue and Reports weakness ENT: Reports nasal congestion Cardiovascular: Cardiovascular: Denies syncope, Denies rapid heart rate, Denies irregular heart rhythm, Denies leg edema and Reports dyspnea Respiratory: Respiratory: Reports chest congestion, Denies hemoptysis, Denies excessive phlegm production and Reports dyspnea Gastrointestinal: Gastrointestinal: Denies abdominal pain, Denies hematochezia, Denies diarrhea and Denies vomiting Genitourinary: Genitourinary: Denies hematuria, Denies dysuria, Denies penile discharge and Denies testicular pain Musculoskeletal: Musculoskeletal: Denies joint swelling, Denies loss of height and Denies muscle weakness Neurologic: Denies syncope, Denies focal weakness and Denies weakness PMFSH Past Medical History Medical History Abdominal aortic aneurysm (AAA) repaired in 2014 CAD (coronary artery disease) Coronary artery disease CPAP (continuous positive airway pressure) dependence Essential (primary) hypertension Gastroesophageal reflux disease with stricture Heart attack High blood pressure High cholesterol Hospital discharge follow-up Iron deficiency CEDRIC on CPAP Seborrheic keratoses SOB (shortness of breath) Weight loss Surgical History Surgical History H/O abdominal surgery H/O heart bypass surgery Hx of CABG Family History Family History Mother Family history of lung cancer Father Non-Hodgkin lymphoma Social History Social History Smoking packs per day: 2 Smoking cigarettes per day: 40.0 Years smoked: 60 Smoking pack-years: 120.00 Smoking status: Current every day smoker Alcohol intake: former Alcohol use details: rare Substance use: never Substance use type: does not use Lack of Transportation: No Lack of Food: Never True Current Housing: I Have Housing Concerned About Future Housing: No Difficulty Paying Gas/Electric Bills: No Difficulty Paying for Meds: No Currently Unemployed: No Education: High School Diploma/GED Difficulty w/ Childcare or Family Care: No Gender identity (if verbalized by the patient): Male Spiritual care concerns: No Agree to blood products: Yes Exam Const: General: no acute distress and alert Nutritional Appearance: well nourished Orientation/consciousness: patient oriented x3 Limitations: no limitations HENMT: Head: normal to inspection Mouth: Yes Normal oral and palatal mucosa pres
[2022-07-03 13:17] LABS: Basophils Percent Auto 0.2 % (0.2-1.2); Eosinophils Percent Auto 0.1 % (0-4.4); Hematocrit 41.7 % (42.0-52.0); Hemoglobin 13.5 g/dL (14.0-18.0); Immature Granulocyte Absolute 0.03 K/mm3 (0.00-0.031); Immature Granulocyte Percent A 0.4 % (0-0.5); Lymphocytes Absolute Auto 0.55 K/mm3 (0.9-3.2); Lymphocytes Percent Auto 6.5 % (18.3-44.2); Mean Corpuscular HGB Conc 32.4 g/dl (32-36); Mean Corpuscular Hemoglobin 30.2 pg (26-34); Mean Corpuscular Volume 93.3 fl (80-100); Mean Platelet Volume 9.3 fl (7.4-10.4); Monocytes Absolute Auto 0.8 K/mm3 (0.1-0.6); Monocytes Percent Auto 8.8 % (2.6-8.5); Neutrophils Absolute Auto 7.2 K/mm3 (1.3-6.7); Platelet Count Result 230 k/mm3 (150-375); Red Blood Count 4.47 M/mm3 (4.6-6.20); Red Cell Distribution Width 14.8 % (11.5-14.5); White Blood Count 8.5 K/mm3 (4.5-10.0)
[2022-07-03 13:27] LABS: INR 1.1; Prothrombin Time 14.2 Seconds (11.1-14.7)
[2022-07-03 13:28] LABS: Alanine Aminotransferase 40 U/L (6-50); Albumin Level 3.4 g/dL (3.5-5.1); Alkaline Phosphatase 79 U/L (38-126); Anion Gap 4 mmol/L (8-16); Aspartate Amino Transferase 46 U/L (17-59); Bilirubin,Total 0.8 mg/dL (0.2-1.3); Blood Urea Nitrogen 23 mg/dL (9-20); Calcium 8.3 mg/dL (8.4-10.2); Carbon Dioxide 27 mmol/L (22-30); Chloride 102 mmol/L (98-107); Estimated CRCL calculation 49 ml/min; Estimated Glomerular Filt Rate > 60; Glucose 110 mg/dL (65-110); Partial Thromboplastin Time 37.5 SECONDS (22.3-36.8); Potassium 3.9 mmol/L (3.4-5.0); Sodium 133 mmol/L (137-145)
[2022-07-03 13:39] LABS: NT Pro B Type Natriuretic Pept 4890 pg/mL (19.9-100); Troponin I < 0.012 ng/mL (0.000-0.034)
[2022-07-03 13:53] LABS: Influenza A QL RT-PCR Negative (Negative); Influenza B QL RT-PCR Negative (Negative); SARS-CoV-2 RNA PCR Positive
[2022-07-03] MEDS: REMDESIVIR 200 MG/NS 250 ML 200 MG/250 ML BAG 250 MG IVPB (15:18)
[2022-07-03] MEDS: SODIUM CHLORIDE 0.9% IV 1,000 ML 75 ML IV CONT (15:55)
--- NOTE | 2022-07-03 16:10 | PC.NURSE ---
heart healthy dinner tray ordered
--- NOTE | 2022-07-03 16:38 | ADMGEN ---
This patient, Jase Knight, was admitted to 2 Medical Room 240-. Patient/family oriented to hospital policies and general routines including ID bracelet, bed and alarms, visiting hours, pain management, procedures, bathroom and other care routines, personal items, smoking policy, room service/diet, and visiting hours. Information on how to activate the Rapid Response Team has been discussed. Patient/Family are encouraged to report perceived risks to care and to ask questions if they do not understand what they are told or what they should do.
--- NOTE | 2022-07-03 22:23 | PM.IMHP ---
H&P: HPI History of Present Illness Date/Time: 07/03/22 22:23 Chief Complaint: Shortness of breath Narrative: This is a 81-year-old male patient who developed symptoms of COVID 7 days ago. And tested positive 6 days ago. The patient came to the emergency room to be evaluated for fatigue and shortness of breath. The patient is not on oxygen at home. The patient is more short of breath with exertion. His O2 saturations are normal at rest but when he ambulates it drops down to the 70s. He denies any chest pain or edema. He denies any nausea vomiting or diarrhea. However the patient stated he has had decreased oral intake he just has not had any appetite. H&H 13.5 and 41.7. Sodium 133. BNP 4890. Influenza a and B negative but COVID positive positive. The patient was started on remdesivir and Decadron. The patient is being admitted to observation status on the date of service of 07/03/2022. Review of Systems Review of Systems: See HPI All systems reviewed & are unremarkable except as noted in HPI and below Constitutional: Constitutional: Reports as per HPI and Reports no additional constitutional complaints Eyes: Eyes: Reports as per HPI and Reports no additional eye complaints ENT: Reports system reviewed and no additional complaints, except as documented and Reports Normal hearing present Cardiovascular: Cardiovascular: Reports no additional cardiovascular complaints Respiratory: Respiratory: Reports no additional respiratory complaints and Reports no additional respiratory complaints Gastrointestinal: Gastrointestinal: Reports as per HPI and Reports no additional gastrointestinal complaints Musculoskeletal: Musculoskeletal: Reports no additional musculoskeletal complaints Integumentary/Breasts: Skin/Breast: Reports system reviewed and no additional complaints, except as docu and Reports as per HPI Neurologic: Reports system reviewed and no additional complaints, except as documented, Reports as per HPI and Reports Normal hearing present Psychiatric: Psychiatric: Reports no additional psychiatric complaints and Reports as per HPI Endocrine: Endocrine: Reports no additional endocrine complaints Hematologic/Lymphatic: Hematologic/Lymphatic: Reports no additional hematologic/lymphatic complaints Allergic/Immunologic: Allergic/Immunologic: Reports no additional allergic/immunologic complaints [facility] Past Medical History Medical History (Updated 07/03/22 @ 23:22 by Aria Marlow NP) Abdominal aortic aneurysm (AAA) repaired in 2014 CAD (coronary artery disease) Coronary artery disease CPAP (continuous positive airway pressure) dependence Essential (primary) hypertension Gastroesophageal reflux disease with stricture Heart attack High blood pressure High cholesterol [facility] discharge follow-up Iron deficiency CEDRIC on CPAP Seborrheic keratoses SOB (shortness of breath) Weight loss Surgical History Surgical History (Updated 07/03/22 @ 23:22 by Aria Marlow NP) H/O abdominal surgery Lower abdominal aneurysm repair/AAA repair H/O cataract extraction H/O heart bypass surgery History of ear surgery History of laparoscopic cholecystectomy Hx of CABG Triple bypass Family History Family History Mother Family history of lung cancer Father Non-Hodgkin lymphoma Social History Social History (Updated 07/03/22 @ 23:24 by Aria Marlow NP) Social History: The patient stated that he is a DNR. He has this with his and daughter. The patient has 5 of his own children and 3 step children and 2 adopted children. The patient worked for [employer] and the [employer] and he retired from the [employer]. The patient stated that he does continue to smoke daily. Denies any alcohol marijuana or illicit drugs. Code status DNR Smoking packs per day: 2 Smoking cigarettes per day: 40.0 Years smoked: 60 Smoking pack-years: 120.
[2022-07-04] VITALS (7 sets, daily range): BP systolic 117–132; BP diastolic 66–70; PULSE 53–60; RESP 16–18; TEMP 36.4–36.9; O2SAT 95–98
--- NOTE | 2022-07-04 00:34 | PCRCNOTE ---
PT REFUSED [facility] CPAP SAYS HE DONT USE HIS HOME UNIT ALL THE TIME EITHER DID NOT LEAVE S-9 IN THE ROOM
[2022-07-04 04:39] LABS: Basophils Percent Auto 0.2 % (0.2-1.2); Hematocrit 38.5 % (42.0-52.0); Hemoglobin 12.3 g/dL (14.0-18.0); Immature Granulocyte Absolute 0.03 K/mm3 (0.00-0.031); Immature Granulocyte Percent A 0.5 % (0-0.5); Lymphocytes Absolute Auto 0.47 K/mm3 (0.9-3.2); Lymphocytes Percent Auto 7.9 % (18.3-44.2); Mean Corpuscular HGB Conc 31.9 g/dl (32-36); Mean Corpuscular Hemoglobin 29.9 pg (26-34); Mean Corpuscular Volume 93.7 fl (80-100); Mean Platelet Volume 9.5 fl (7.4-10.4); Monocytes Absolute Auto 0.3 K/mm3 (0.1-0.6); Monocytes Percent Auto 5.1 % (2.6-8.5); Neutrophils Absolute Auto 5.1 K/mm3 (1.3-6.7); Neutrophils Percent Auto 86.3 % (45.5-73.1); Platelet Count Result 220 k/mm3 (150-375); Red Blood Count 4.11 M/mm3 (4.6-6.20); Red Cell Distribution Width 14.7 % (11.5-14.5); White Blood Count 5.9 K/mm3 (4.5-10.0)
[2022-07-04 04:49] LABS: Alanine Aminotransferase 39 U/L (6-50); Albumin Level 2.9 g/dL (3.5-5.1); Alkaline Phosphatase 70 U/L (38-126); Anion Gap 5 mmol/L (8-16); Aspartate Amino Transferase 40 U/L (17-59); Bilirubin,Total 0.3 mg/dL (0.2-1.3); Blood Urea Nitrogen 22 mg/dL (9-20); Calcium 7.8 mg/dL (8.4-10.2); Carbon Dioxide 23 mmol/L (22-30); Chloride 105 mmol/L (98-107); Estimated CRCL calculation 54 ml/min; Estimated Glomerular Filt Rate > 60; Glucose 114 mg/dL (65-110); Potassium 4.1 mmol/L (3.4-5.0); Sodium 133 mmol/L (137-145)
[2022-07-04 04:50] LABS: INR 1.2; Prothrombin Time 14.8 Seconds (11.1-14.7)
[2022-07-04] MEDS: SODIUM CHLORIDE 0.9% IV 1,000 ML 75 ML IV CONT (05:17)
[2022-07-04] MEDS: PANTOPRAZOLE 40 MG TABLET PO (09:23)
[2022-07-04] MEDS: ASPIRIN 325 MG TABLET PO (09:23)
[2022-07-04] MEDS: NIFEdipine 30 MG TAB.ER.24 PO (09:23)
[2022-07-04] MEDS: lisinopriL 10 MG TABLET PO (09:24)
[2022-07-04] MEDS: ENOXAPARIN 40 MG/0.4 ML SYRINGE SUB-Q (09:24)
[2022-07-04] MEDS: REMDESIVIR 100 MG/NS 250 ML 100 MG/250 ML BAG 250 MG IVPB (09:24)
--- NOTE | 2022-07-04 10:51 | PM.DS ---
DS: Admitting Diagnosis Discharge Date July 04, 2022 Admitting Diagnosis COVID DS: Discharge Diagnosis Discharge Diagnosis (1) COVID: Code(s): U07.1 - COVID-19 Status: Acute (2) Iron deficiency: Code(s): E61.1 - Iron deficiency Status: Acute (3) High blood pressure: Code(s): I10 - Essential (primary) hypertension Status: Acute (4) High cholesterol: Code(s): E78.00 - Pure hypercholesterolemia, unspecified Status: Acute (5) Anemia: Code(s): D64.9 - Anemia, unspecified Status: Acute (6) CEDRIC on CPAP: Code(s): G47.33 - Obstructive sleep apnea (adult) (pediatric); Z99.89 - Dependence on other enabling machines and devices Status: Acute DS: Summary Hospital Course Hospital Course: Patient is a 81-year-old male who came in with weakness secondary to COVID. He was mildly hypoxic with ambulation in the ER. Patient was admitted to the floor given some steroids and remdesivir. By the time I had seen the patient his symptoms had subsequently resolved. He was able to walk around the room without any shortness of breath or hypoxia. Currently saturations are 98%. Patient reports he does have some chronic lung disease and uses inhaler at home. He says he feels good he is ambulating he is eating he is doing all his normal activities he wants to go home. Patient can be discharged. Time Spent with Patient Time attestation: Total time spent providing and/or coordinating discharge services: Exam Const: General: cooperative, healthy appearing, comfortable, no acute distress, well developed, alert, awake, Physically active, average body habitus, well nourished and thin Nutritional Appearance: average body habitus, well nourished and thin Orientation/consciousness: oriented to person, oriented to place, oriented to time and patient oriented x3 Limitations: no limitations HENMT: Head: normal to inspection, No palpable skull fracture present, normocephalic and atraumatic Ears: hearing grossly normal bilaterally and external ears normal Face/Nose/Sinus: Normal external nose present and Normal nares present Mouth: Yes Normal oral and palatal mucosa present Eyes: General: appearance normal, both eyes and all related structures Alignment and Position: alignment normal Periorbital: periorbital findings normal Eyelids: eyelids normal Sclera: sclerae normal Pupils: Equal, round and reactive pupils present EOM: EOMs intact bilaterally Neck: Neck: normal visual inspection, full ROM, no lymphadenopathy, trachea midline and supple Thyroid: thyroid normal Chest: Chest palpation & inspection: normal inspection of the chest Resp: Effort & Inspection: normal respiratory effort Auscultation: clear to auscultation bilaterally Cardio: Palpation: normal PMI Rate: regular rate Rhythm: regular rhythm Heart sounds: S1 normal heart sound present, S2 normal heart sound present and no murmurs Peripheral pulses: Peripheral pulses 2+ throughout GI: Inspection: normal to inspection Auscultation: normal bowel sounds Rectal Exam: deferred Back/Spine/Pelvis: Cervical Spine: cervical ROM normal Skin: General skin exam: normal color Lesions: no lesions Rashes: no rashes Trauma: no lacerations or abrasions Wounds: no wounds Hair: general thinning Nails: normal Neuro: General: oriented to person, oriented to place, oriented to time, patient oriented x3, moves all extremities and CN's II-XI intact bilaterally Cranial nerves: Yes Equal, round and reactive pupils present, Yes Nystagmus not present and Yes Normal hearing present Cognition (Neuro): normal cognition Speech: normal speech Gait exam (Neuro): Normal gait present Motor exam (neuro): 5/5 motor strength present throughout Sensory Exam: normal sensation Extrem: General: normal to inspection Right upper extremity: normal to inspection and shoulder/upper arm Left upper extremity: normal to inspection and shoulder/upper
== END 2022-07-04 17:10 | disposition home or self-care (01) ==
LOC: ANHED 12:22 → ANH2MED 16:30
PROVIDERS: Admitting Provider Student in an Organized Health Care Education/Training Program; Emergency Provider General Practice; PCP Family Medicine; Visit Provider Chiropractor
DX: U07.1 COVID-19 (principal); I25.10 Atherosclerotic heart disease of native coronary artery without angina pectoris; Z95.1 Presence of aortocoronary bypass graft; I10 Essential (primary) hypertension; K21.9 Gastro-esophageal reflux disease without esophagitis; I25.2 Old myocardial infarction; E61.1 Iron deficiency; G47.33 Obstructive sleep apnea (adult) (pediatric); Z99.89 Dependence on other enabling machines and devices; I70.0 Atherosclerosis of aorta; D64.9 Anemia, unspecified; J44.9 Chronic obstructive pulmonary disease, unspecified; R94.31 Abnormal electrocardiogram [ECG] [EKG]; F17.210 Nicotine dependence, cigarettes, uncomplicated; M85.80 Other specified disorders of bone density and structure, unspecified site; Z79.82 Long term (current) use of aspirin; Z79.51 Long term (current) use of inhaled steroids; Z79.899 Other long term (current) drug therapy
CPT/HCPCS: 36415; 36600; 71045; 80053; 82375; 82805; 83050; 83880; 84484; 85025; 85610; 85730; 87636; 93005; 96361; 96365; 96366; 96372; 96375; 96376; 99285; A9270; G0378; J0248; J1100; J1650; J7030

== ENCOUNTER 2022-07-11 20:20 | Observation (INO) | payer MEDICARE, SELFPAY ==
--- NOTE | ~2022-07-11 | CT_ITS ---
Non-contrast CT scan of the Abdomen and Pelvis Clinical indication: Abdominal pain Technique: 5 mm axial scans were obtained through the abdomen and pelvis without intravenous or oral contrast. Dose reduction technique was used on this scan by utilizing automated exposure control and iterative reconstruction technique. The dose-length product (DLP) was 201.49 mGy-cm. COMPARISON: 09/19/2021 Findings: Images through the lung bases reveal patchy bibasilar consolidation, suspicious for pneumo edis. Moderate to large hiatal hernia is present. The liver, spleen, pancreas, and adrenals appear normal. Cholecystectomy clips are present. Bilateral renal cysts are present, including a large right lower pole renal cyst measuring up to 8.1 cm in nathan meter. Aortic stent graft is in place, extending to the common iliac arteries. There is no evidence of bowel obstruction. Images through the pelvis were performed. There is no evidence of ascites or lymphadenopathy. Urinary bladder is distended, otherwise unremarkable. Prostate gland is enlarged. Impression: Patchy bibasilar pulmonary consolidation is consistent with pneumonia. Correlate for any possibility of aspiration. Moderate to large hiatal hernia. No acute abnormality in the abdomen or pelvis otherwise. Chronic findings, as above. Reviewed, dictated and finalized at [facility]. T SUPERINTENDENT Impression: Patchy bibasilar pulmonary consolidation is consistent with pneumonia. Correlat e for any possibility of aspiration. Moderate to large hiatal hernia. No acute abnormality in the abdomen or pelvis otherwise. Chronic findings, as a rosemary.
--- NOTE | ~2022-07-11 | CT_ITS ---
EXAMINATION: CTA chest PE protocol DATE: 07/13/2022 08:28 INDICATION: COVID pneumonia. TECHNIQUE: Computed tomography (CT) pulmonary angiogram of the chest was performed with 100 mL Omnipa que-350 intravenous contrast. Additional 3D reconstructions utilizing coronal maximum intensity proje ction (MIP) were performed. Automated exposure control and iterative reconstruction technique were em ployed. The dose-length product was 183.65 mGy-cm. COMPARISON: None FINDINGS: Excellent contrast opacification of the pulmonary arteries. There is mild streak artifact from dense contrast in the superior vena cava and right atrium. Minimal scattered respiratory motion artifact wh ich does not significantly limit evaluation. No pulmonary embolism. Mild to moderate emphysema. Scatt ered bronchiectatic changes with mucous plugging which most prominent in the bilateral lower lobes wh ere there are numerous mucus impacted bronchi. There is patchy consolidation and extensive tree-in-bu d opacities in the bilateral lower lobes consistent with pneumonia and endobronchial spread of diseas e. Chronic pleural-parenchymal scarring at the posterolateral periphery of the right upper lobe. No p ulmonary edema, pleural effusion or pneumothorax. Heart size is normal with mild left ventricular enl argement. Atherosclerotic coronary artery calcifications and change of prior medial sternotomy and co ronary artery bypass grafting. Aortic valve calcification. Thoracic aorta is normal in caliber. No pa thologically enlarged thoracic lymphadenopathy. Moderate-sized sliding-type hiatal hernia. Cholecyste ctomy clips at the gallbladder fossa. A few right renal cysts, the largest a 4.5 cm exophytic cyst at the upper pole. Incompletely visualized endoluminal stent grafting the aorta beginning between the l evel of the origin of the superior mesenteric and the bilateral renal arteries. Thoracolumbar dextros coliosis with moderate severe spondylosis. IMPRESSION: 1. No pulmonary embolism. 2. Bilateral lower lobe pneumonia with bronchiectasis and extensive mucous plugging. 3. Mild to moderate emphysema. 4. Moderate-sized sliding-type hiatal hernia. Reviewed, dictated and finalized at location B. S BUCKER IMPRESSION: 1. No pulmonary embolism. 2. Bilateral lower lobe pneumonia with bronchiectasis and extensive mucous plug ging. 3. Mild to moderate emphysema. 4. Moderate-sized sliding-type hiatal hernia.
--- NOTE | ~2022-07-11 | XR_ITS ---
Clinical Indication: Cough PA and lateral views of the chest: Comparison: 07/03/2022 and 02/02/2022 Findings: Is hazy bibasilar airspace disease, unchanged from prior exam. Chronic right upper lobe sca rring is also unchanged. Probable underlying COPD. Cardiomediastinal silhouette is within normal holcomb its. Bones and soft tissues are unremarkable. Impression: Hazy bibasilar airspace disease. Correlate for bibasilar pulmonary edema versus possible infection. C hronic interstitial disease unlikely given clear lung bases on prior exam from 02/02/2022. 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 Reviewed, dictated and finalized at location M. L PROCESS SPECIALIST Impression: Hazy bibasilar airspace disease. Correlate for bibasilar pulmonary edema versus possible infection. Chronic interstitial disease unlikely given clear lung bas es on prior exam from 02/02/2022. 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
[2022-07-11 20:26] VITALS: BP 144/76; PULSE 71; RESP 14; TEMP 37.1; O2SAT 93
--- NOTE | 2022-07-11 21:08 | PC.NURSE ---
Pt c/o SOB intermittent with chest pain , pt grabbing abdomen for location of pain. Radial pulse strong, even. Pt A&Ox4 at this time.
--- NOTE | 2022-07-12 02:03 | PC.NURSE ---
Pt reports pain in epigastric/upper abdomen has now resolved. Pt states he is mainly concerned for infection in right jaw.
[2022-07-12 02:04] VITALS: BP 137/87; PULSE 62; RESP 19; O2SAT 97
--- NOTE | 2022-07-12 03:07 | ECG_ITS ---
Measurements Intervals [place] Rate: 58 P: 90 RI: 161 QRS: 49 QRSD: 134 T: -51 QT: 460 QTc: 453 Interpretive Statements SINUS BRADYCARDIA VENTRICULAR PREMATURE COMPLEX INTRAVENTRICULAR CONDUCTION DELAY EARLY PRECORDIAL R/S TRANSITION ST-T WAVE ABNORMALITY IN INFERIOR LEADS- CONSIDER ISCHEMIA BASELINE ARTIFACT- I, II, III, AVF ABNORMAL ECG COMPARED TO ECG 07/03/2022 13:00:43 SINUS BRADYCARDIA NOW PRESENT Electronically Signed On 07-12-2022 7:51:32 [employer] by Vick Juárez D.O.
--- NOTE | 2022-07-12 03:19 | PC.NURSE ---
Pt to XR via stretcher
[2022-07-12 04:08] LABS: Basophils Absolute Auto 0.1 K/mm3 (0.0-0.1); Basophils Percent Auto 0.3 % (0.2-1.2); Hematocrit 44.4 % (42.0-52.0); Hemoglobin 14.3 g/dL (14.0-18.0); Immature Granulocyte Percent A 0.5 % (0-0.5); Lymphocytes Percent Auto 3.8 % (18.3-44.2); Mean Corpuscular HGB Conc 32.2 g/dl (32-36); Mean Corpuscular Volume 93.1 fl (80-100); Mean Platelet Volume 10.3 fl (7.4-10.4); Monocytes Percent Auto 4.7 % (2.6-8.5); Neutrophils Absolute Auto 19.2 K/mm3 (1.3-6.7); Neutrophils Percent Auto 90.7 % (45.5-73.1); Platelet Count Result 321 k/mm3 (150-375); Red Blood Count 4.77 M/mm3 (4.6-6.20); Red Cell Distribution Width 14.9 % (11.5-14.5); White Blood Count 21.1 K/mm3 (4.5-10.0)
--- NOTE | 2022-07-12 04:10 | ED.GENADULT ---
HPI - General Adult General Chief complaint: Abdominal Pain Stated complaint: chest pain Time Seen by Provider: 07/12/22 02:53 History of Present Illness HPI narrative: 81-year-old gentleman who presents the emergency department with chief complaint of mouth pain and abdominal pain. The patient reports that he recently had a small bone spur removed from where he had a previous dental extraction the patient reports that since then he has noticed some discomfort in his mouth reports that it is uncomfortable whenever he eats or swallows. Patient reports that tonight he started having a pressure-like sensation in his epigastrium reports that it was not improved by anything but spontaneously went away and is currently resolved. Related Data Home Medications Medication Instructions Recorded Confirmed atorvastatin 10 mg tablet 10 mg PO HS 07/03/22 07/11/22 Allergies Allergy/AdvReac Type Severity Reaction Status Date / Time Penicillins Allergy Severe difficulty Verified 07/12/22 02:06 moving legs Iodinated Contrast Media Allergy Intermediate Hives Verified 07/12/22 02:06 Review of Systems Review of Systems: A 10 system review of systems was completed on the patient and is negative except for what is stated in the HPI. Nursing and ancillary documentation was reviewed. [facility] Past Medical History Medical History Abdominal aortic aneurysm (AAA) repaired in 2014 CAD (coronary artery disease) Coronary artery disease CPAP (continuous positive airway pressure) dependence Essential (primary) hypertension Gastroesophageal reflux disease with stricture Heart attack High blood pressure High cholesterol Hospital discharge follow-up Iron deficiency CEDRIC on CPAP Seborrheic keratoses SOB (shortness of breath) Weight loss Surgical History Surgical History H/O abdominal surgery Lower abdominal aneurysm repair/AAA repair H/O cataract extraction H/O heart bypass surgery History of ear surgery History of laparoscopic cholecystectomy Hx of CABG Triple bypass Family History Family History Mother Family history of lung cancer Father Non-Hodgkin lymphoma Social History Social History Social History: The patient stated that he is a DNR. He has this with his and daughter. The patient has 5 of his own children and 3 step children and 2 adopted children. The patient worked for [employer] and he retired from the [employer]. The patient stated that he does continue to smoke daily. Denies any alcohol marijuana or illicit drugs. Code status DNR Smoking packs per day: 2 Smoking cigarettes per day: 40.0 Years smoked: 60 Smoking pack-years: 120.00 Smoking status: Current every day smoker Alcohol intake: former Alcohol use details: rare Substance use: never Substance use type: does not use Lack of Transportation: No Lack of Food: Never True Current Housing: I Have Housing Concerned About Future Housing: No Difficulty Paying Gas/Electric Bills: No Difficulty Paying for Meds: No Currently Unemployed: No Education: High School Diploma/GED Difficulty w/ Childcare or Family Care: No Living arrangements: with family Occupation/Education: retired Gender identity (if verbalized by the patient): Male Spiritual care concerns: No Agree to blood products: Yes Exam Narrative: GENERAL: Well-appearing, well-nourished, and in no acute distress. HEAD: Normocephalic, atraumatic. EYES: PERRLA and EOMI. ENT: Nares clear, no rhinorrhea or epistaxis. Mucous membranes moist. There is a thrush-like rash present in the oropharynx NECK: Supple. CHEST: Clear to auscultation. No respiratory distress. HEART: Regular
[2022-07-12 04:18] LABS: Lipase 47 U/L (23-300)
[2022-07-12 04:19] LABS: INR 1.1
[2022-07-12 04:30] LABS: Troponin I 0.013 ng/mL (0.000-0.034)
[2022-07-12 04:43] VITALS: BP 131/71; PULSE 68; RESP 14; O2SAT 95
[2022-07-12 05:36] LABS: Alanine Aminotransferase 96 U/L (6-50); Albumin Level 3.3 g/dL (3.5-5.1); Alkaline Phosphatase 240 U/L (38-126); Anion Gap 2 mmol/L (8-16); Aspartate Amino Transferase 130 U/L (17-59); Bilirubin,Total 1.1 mg/dL (0.2-1.3); Blood Urea Nitrogen 19 mg/dL (9-20); Calcium 8.5 mg/dL (8.4-10.2); Carbon Dioxide 30 mmol/L (22-30); Chloride 99 mmol/L (98-107); Estimated CRCL calculation 47 ml/min; Estimated Glomerular Filt Rate > 60; Glucose 75 mg/dL (65-110); Potassium 4.5 mmol/L (3.4-5.0); Sodium 131 mmol/L (137-145)
[2022-07-12 05:53] LABS: Appearance Urine Slightly Cloudy (Clear); Bilirubin Urine 1+ (Negative); Blood Urine 2+ (Negative); Color Urine Yellow (Yellow); Glucose Urine UA Negative (Negative); Ketones Urine Negative (Negative); Leukocyte Esterase Ur Negative LEU/UL (Negative); Nitrate Urine Negative (Negative); Protein Urine 1+ mg/dL (Negative); Specific Grav Ur 1.025 (1.001-1.035); pH Urine 5.5 (5.0-9.0)
[2022-07-12 05:58] LABS: Bacteria Urine Trace /hpf; Mucus Urine Rare /lpf; RBC Urine >75 /hpf (0-2); WBC Urine 0-3 /hpf
[2022-07-12 05:59] LABS: Add Urine Microscopic? YES
[2022-07-12 06:45] VITALS: PULSE 57; RESP 19; O2SAT 99
[2022-07-12 07:06] LABS: Influenza A QL RT-PCR Negative (Negative); Influenza B QL RT-PCR Negative (Negative); SARS-CoV-2 RNA PCR Positive
[2022-07-12 07:47] VITALS: PULSE 62; RESP 18; O2SAT 96
--- NOTE | 2022-07-12 10:26 | ADMGEN ---
This patient, Jase Knight, was admitted to Medical Room 247-. Patient/family oriented to hospital policies and general routines including ID bracelet, bed and alarms, visiting hours, pain management, procedures, bathroom and other care routines, personal items, smoking policy, room service/diet, and visiting hours. Information on how to activate the Rapid Response Team has been discussed. Patient/Family are encouraged to report perceived risks to care and to ask questions if they do not understand what they are told or what they should do.
[2022-07-12 12:36] VITALS: BMI 15.3
--- NOTE | 2022-07-12 12:38 | PM.IMHP ---
H&P: HPI History of Present Illness Date/Time: 07/12/22 12:38 Chief Complaint: Abdominal Narrative: This is a 81-year-old male patient who was just discharged from this hospital on 07/04/2022 with COVID. The patient had been on Decadron at home. The patient came in today with complaints of epigastric pain. The patient stated that he also has sores in his mouth and was given viscous lidocaine. The patient stated he has pressure-like sensation in his epigastric area which was not improved by anything. At this current time patient has no complaints of any discomfort. His white count is 21.1. Sodium is 131. Liver enzymes AST is 130 ALT is 96 an alkaline phosphatase 240. He has 2+ blood in his urine and 1+ urine bilirubin. The patient is negative for influenza a and B and is positive for COVID. However the patient has been COVID positive for over 10 days. The patient had abdominal pelvis CT which was read as bibasilar pulmonary consolidation is consistent with pneumonia. Moderate to large hiatal hernia. No acute abnormality in the abdomen or pelvis otherwise. Chest x-ray was read as hazy bibasilar airspace disease correlate for bibasilar pneumonia edema versus probable infection. Chronic interstitial disease unlikely given clear lung bases on prior exam. 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 The patient was started on azithromycin Rocephin. The patient is being admitted to observation status on the date of service of 07/12/2022. Review of Systems Review of Systems: See HPI All systems reviewed & are unremarkable except as noted in HPI and below Constitutional: Constitutional: Reports as per HPI and Reports no additional constitutional complaints Eyes: Eyes: Reports as per HPI and Reports no additional eye complaints ENT: Reports system reviewed and no additional complaints, except as documented and Reports Normal hearing present Cardiovascular: Cardiovascular: Reports no additional cardiovascular complaints Respiratory: Respiratory: Reports no additional respiratory complaints and Reports no additional respiratory complaints Gastrointestinal: Gastrointestinal: Reports as per HPI and Reports no additional gastrointestinal complaints Musculoskeletal: Musculoskeletal: Reports no additional musculoskeletal complaints Integumentary/Breasts: Skin/Breast: Reports system reviewed and no additional complaints, except as docu and Reports as per HPI Neurologic: Reports system reviewed and no additional complaints, except as documented, Reports as per HPI and Reports Normal hearing present Psychiatric: Psychiatric: Reports no additional psychiatric complaints and Reports as per HPI Endocrine: Endocrine: Reports no additional endocrine complaints Hematologic/Lymphatic: Hematologic/Lymphatic: Reports no additional hematologic/lymphatic complaints Allergic/Immunologic: Allergic/Immunologic: Reports no additional allergic/immunologic complaints [facility] Past Medical History Medical History Abdominal aortic aneurysm (AAA) repaired in 2014 CAD (coronary artery disease) Coronary artery disease CPAP (continuous positive airway pressure) dependence Essential (primary) hypertension Gastroesophageal reflux disease with stricture Heart attack High blood pressure High cholesterol Hospital discharge follow-up Iron deficiency CEDRIC on CPAP Seborrheic keratoses SOB (shortness of breath) Weight loss Surgical History Surgical History H/O abdominal surgery Lower abdominal aneurysm repair/AAA repair H/O cataract extraction H/O heart bypass surgery History of ear surgery History of laparoscopic cholecystectomy Hx of CABG Triple bypass Family History Family History Mother Family history of lung cancer Father Non-Hodgkin lymphoma Social History Social History ([place]
[2022-07-12 14:00] VITALS: BP 107/67; PULSE 89; RESP 15; TEMP 37.3; O2SAT 100
[2022-07-12] MEDS: LIDOCAINE HCL 2% VISC SOLN 15 ML UDC 10 ML MUCOUS MEM ×2 (16:59→20:37)
[2022-07-12] MEDS: NYSTATIN 100,000 UNITS/ML SUSP 5 ML ORAL.SUSP PO ×2 (17:11→20:37)
[2022-07-12] MEDS: predniSONE 40 MG, predniSONE 10 MG 50 MG PO (18:32)
[2022-07-12] MEDS: ATORVASTATIN 10 MG TABLET PO (20:37)
[2022-07-12 21:04] VITALS: BP 121/64; PULSE 62; RESP 20; TEMP 36.6; O2SAT 94
--- NOTE | 2022-07-12 21:18 | PCRCNOTE ---
pt states he has a cpap but dont use it .. pt states he will not use ours do to his mouth ... teeth at this time .. pulled unit from room
[2022-07-13] MEDS: predniSONE 40 MG, predniSONE 10 MG 50 MG PO ×2 (00:36→06:57)
[2022-07-13 03:24] VITALS: BP 100/49; PULSE 58; RESP 17; TEMP 36.4; O2SAT 95
[2022-07-13 05:40] LABS: Hematocrit 41.3 % (42.0-52.0); Hemoglobin 13.3 g/dL (14.0-18.0); Immature Granulocyte Absolute 0.04 K/mm3 (0.00-0.031); Immature Granulocyte Percent A 0.4 % (0-0.5); Lymphocytes Absolute Auto 0.46 K/mm3 (0.9-3.2); Lymphocytes Percent Auto 4.8 % (18.3-44.2); Mean Corpuscular HGB Conc 32.2 g/dl (32-36); Mean Corpuscular Hemoglobin 30.3 pg (26-34); Mean Corpuscular Volume 94.1 fl (80-100); Mean Platelet Volume 9.1 fl (7.4-10.4); Monocytes Absolute Auto 0.1 K/mm3 (0.1-0.6); Monocytes Percent Auto 0.7 % (2.6-8.5); Neutrophils Percent Auto 94.1 % (45.5-73.1); Platelet Count Result 225 k/mm3 (150-375); Red Blood Count 4.39 M/mm3 (4.6-6.20); Red Cell Distribution Width 14.8 % (11.5-14.5); White Blood Count 9.6 K/mm3 (4.5-10.0)
[2022-07-13 05:50] LABS: Alanine Aminotransferase 57 U/L (6-50); Albumin Level 3.3 g/dL (3.5-5.1); Alkaline Phosphatase 178 U/L (38-126); Anion Gap 3 mmol/L (8-16); Aspartate Amino Transferase 42 U/L (17-59); Bilirubin,Total 0.7 mg/dL (0.2-1.3); Blood Urea Nitrogen 22 mg/dL (9-20); Calcium 8.2 mg/dL (8.4-10.2); Carbon Dioxide 29 mmol/L (22-30); Chloride 97 mmol/L (98-107); Estimated CRCL calculation 53 ml/min; Estimated Glomerular Filt Rate > 60; Glucose 152 mg/dL (65-110); Potassium 4.7 mmol/L (3.4-5.0); Sodium 129 mmol/L (137-145)
[2022-07-13] MEDS: diphenhydrAMINE HCl CAP 25 MG CAPSULE 50 MG PO (06:58)
--- NOTE | 2022-07-13 08:13 | PC.NURSE ---
Diphenhydramine for 0655 was given by DENIS Knapp per both DENIS Knapp and the patient. Aria was called to verify that is was given after I went to administer medication to the patient for pre-treatment and the patient stated that he had already received that medication around 0700. Patient is alert and oriented x4.
--- NOTE | 2022-07-13 08:45 | PM.DS ---
DS: Admitting Diagnosis Discharge Date 07/13/2022 0845 Admitting Diagnosis Pneumonia DS: Discharge Diagnosis Discharge Diagnosis (1) Pneumonia: Code(s): J18.9 - Pneumonia, unspecified organism Status: Acute Assessment and Plan: -the patient was started on a azithromycin and Rocephin -tailor antibiotics to cultures. -Sputum and blood cultures are pending. -Continue with inhalers. -the patient has recently been diagnosed with diabetes over 10 days ago. (2) Leukocytosis: Code(s): D72.829 - Elevated white blood cell count, unspecified Status: Acute Assessment and Plan: -the patient has leukocytosis of 21.1. -this could be due to pneumonia and the patient recently we had been on Decadron when he was discharged last admission. (3) COVID: Code(s): U07.1 - COVID-19 Status: Acute Assessment and Plan: -the patient tested COVID positive for COVID over 10 days ago. The patient may not need to be on isolation any further. -I did order a CT a pulmonary to rule out a PE as the patient recently was diagnosed was COVID. We will need to premedicate with prednisone and Benadryl. The patient has a IV contrast allergy (4) Anemia: Code(s): D64.9 - Anemia, unspecified Status: Acute Assessment and Plan: -the patient's H&H is stable and has improved from his last reading of 12.3 and 38.5. His counts are normal now. (5) High cholesterol: Code(s): E78.00 - Pure hypercholesterolemia, unspecified Status: Acute Assessment and Plan: -continue with atorvastatin. (6) High blood pressure: Code(s): I10 - Essential (primary) hypertension Status: Acute Assessment and Plan: -BP is 122/72. Continue with his lisinopril and nifedipine. Hold if his map is less than 60. (7) CEDRIC on CPAP: Code(s): G47.33 - Obstructive sleep apnea (adult) (pediatric); Z99.89 - Dependence on other enabling machines and devices Status: Acute Assessment and Plan: Continue with home settings (8) Thrush: Code(s): B37.0 - Candidal stomatitis Status: Acute Assessment and Plan: -continue with nystatin and lidocaine DS: Summary Hospital Course Hospital Course: patient is a 81-year-old male with a past medical history COVID-19, CABG, anemia, hyperlipidemia, hypertension who presented to the ED with complaints of epigastric pain. CT scan of the abdomen Found bibasilar lower lobe infiltrates. CT of the chest did confirm. Patient denies any shortness of breath, cough, chest pain, nausea, vomiting, diarrhea, constipation, weakness or fatigue. Patient did state that his symptoms have resolved at this time. Patient also stated that he was a long-time smoker and does have COPD. Patient is also concerned with his bone spur in his mouth. He does appear to have thrush. Sodium was 129 this morning. Will have patient follow-up with his primary care provider in 1 week and have him get labs as well. [place] [address] however today it is down to 9.6. Patient is stable for discharge for labs and vital signs. Education about strict and clear follow-up has been given patient verbalized understanding. Will continue patient on antibiotics for 10 days with recent Covid, and tooth spur. Will have patient follow up with primary care provider, and get labs in one week Spoke in collaboration with Dr. Iyer who agreed with this plan. Status at Discharge Functional status at discharge: independent ambulation Overall status at discharge: patient is progressing back to baseline Time Spent with Patient Time attestation: Total time spent providing and/or coordinating discharge services: 56 minutes Time spent: Greater than 30 minutes Specific discharge activities: Diagnostic testing, chart review, developing a treatment plan, education, care coordination documentation, physical exam, result review Exam Narrativ
[2022-07-13 09:01] LABS: NT Pro B Type Natriuretic Pept 6420 pg/mL (19.9-100)
[2022-07-13] MEDS: ASPIRIN 325 MG TABLET PO (09:01)
[2022-07-13] MEDS: NIFEdipine 30 MG TAB.ER.24 PO (09:02)
[2022-07-13] MEDS: NYSTATIN 100,000 UNITS/ML SUSP 5 ML ORAL.SUSP PO ×2 (09:02→12:45)
[2022-07-13] MEDS: lisinopriL 10 MG TABLET PO (09:02)
== END 2022-07-13 13:22 | disposition home or self-care (01) ==
LOC: ANHED 07-12 07:06 → ANH2MED 07-12 09:11
PROVIDERS: Nurse Practitioner; Admitting Provider Family Medicine; Emergency Provider Emergency Medicine; PCP Family Medicine; Visit Provider Internal Medicine
DX: J44.0 Chronic obstructive pulmonary disease with (acute) lower respiratory infection (principal); J18.9 Pneumonia, unspecified organism; D72.829 Elevated white blood cell count, unspecified; U07.1 COVID-19; D64.9 Anemia, unspecified; E78.00 Pure hypercholesterolemia, unspecified; I10 Essential (primary) hypertension; G47.33 Obstructive sleep apnea (adult) (pediatric); Z99.89 Dependence on other enabling machines and devices; B37.0 Candidal stomatitis; K13.79 Other lesions of oral mucosa; R10.13 Epigastric pain; I71.40 Abdominal aortic aneurysm, without rupture, unspecified; I25.10 Atherosclerotic heart disease of native coronary artery without angina pectoris; K44.9 Diaphragmatic hernia without obstruction or gangrene; Z95.1 Presence of aortocoronary bypass graft; Z66 Do not resuscitate; K21.9 Gastro-esophageal reflux disease without esophagitis; I25.2 Old myocardial infarction; R94.31 Abnormal electrocardiogram [ECG] [EKG]; F17.210 Nicotine dependence, cigarettes, uncomplicated; Z79.899 Other long term (current) drug therapy
CPT/HCPCS: 36415; 51701; 71046; 71275; 74176; 80053; 81001; 83690; 83880; 84484; 85025; 85610; 87040; 87636; 93005; 96365; 96374; 96375; 96376; 99285; A9270; G0378; J0456; J0696; J7512; Q9967

== ENCOUNTER → 2022-07-16 07:24 | Outpatient (CLI) | payer MEDICARE, SELFPAY ==
--- NOTE | ~2022-07-16 | XR_ITS ---
XR chest 2V 07/16/2022 07:53 Indication: Covid infection. Procedure: PA and lateral views of the chest Comparison: Comparison to multiple prior studies sequentially, with oldest reviewed study dated 12/07. Findings: Unchanged patchy bilateral airspace consolidation with basilar predominance. There is right apical pleural thickening/scarring. Status post median sternotomy for CABG. Heart size normal. The l ungs are hyperinflated which is consistent with, but not diagnostic of chronic obstructive pulmonary disease. Impression: 1: Stable extensive patchy bilateral airspace disease which may represent scarring/fibrosis or atypic al pneumonia. Reviewed, dictated and finalized at location A. CDL DRIVER Impression: 1: Stable extensive patchy bilateral airspace disease which may represent scarr ing/fibrosis or atypical pneumonia.
== END ==
PROVIDERS: PCP Family Medicine; Visit Provider Physician Assistant Medical
DX: U07.1 COVID-19 (principal); R91.8 Other nonspecific abnormal finding of lung field
CPT/HCPCS: 71046

== ENCOUNTER 2022-09-10 07:17 | Observation (INO) | payer MEDICARE, SELFPAY ==
[2022-09-10] VITALS (44 sets, daily range): BP systolic 103–139; BP diastolic 62–86; PULSE 46–81; RESP 12–20; TEMP 36.2–36.4; O2SAT 94–100; BMI 15.6
--- NOTE | 2022-09-10 | ECHO_ITS ---
Patient Info Name: Jase Knight Age: 81 years : 1940 Gender: Male Ht: 74 in Wt: 144 lbs BSA: 1.83 m2 HR: 78 bpm BP: 119 / 73 mmHg Heart Rhythm: Sinus Rhythm Technical Quality: Fair Exam Date: 09/10/2022 2:19 PM Exam Location: [facility] Pulmonary Exam Room: [place] [address] Patient Status: Inpatient Admit Date: 09/10/2022 Staff Ordering Physician: Saeid Mann Nurses Educator: Chanel Cedillo RDCS Attending Provider: Amaya Iyer DO Referring Physician: Johnathan MONDRAGON; Exam Type: CA echo doppler color flow Study Info Indications - CAD CABG BPH CHF HTN SOB ELEVATED TROPONINS Complete two-dimensional, color flow and Doppler transthoracic echocardiogram is performed. Summary 1. Complete two-dimensional, color flow and Doppler transthoracic echocardiogram is performed. 2. Mild left ventricular enlargement with mildly reduced systolic function. 3. Akinesis of the posterior wall and basal segment of the inferior wall. 4. Enlarged left atrium. 5. Mild mitral regurgitation. 6. Sclerotic aortic valve with mild stenosis. Left Ventricle Left ventricular chamber dimension is mildly enlarged. Left ventricular systolic function is mildly reduced, estimated at 40-45%. The left ventricular diastolic function is grade I diastolic dysfunction. Right Ventricle Right ventricular chamber dimension is normal. Left Atria Left atrial chamber dimension is moderately enlarged. Right Atria Right atrial chamber dimension is normal. Aortic Valve The aortic valve is trileaflet. There is mild aortic valve sclerosis. There is mild aortic valve stenosis with a peak velocity of 147 cm/s, mean gradient of 4 mmHg, and aortic valve area of 3.0 cm2. Pulmonic Valve The pulmonic valve is not well visualized. Mitral Valve The mitral valve has normal leaflets. There is mild mitral valve regurgitation. The mitral valve annulus is mildly calcified. Tricuspid Valve The tricuspid valve leaflets are normal. There is trace tricuspid valve regurgitation. Pericardium/Pleural The pericardium appears normal. Aorta The aortic root size at the sinus of Valsalva is normal. Left Ventricular Outflow Tract Name Value Normal LVOT 2D LVOT Diameter 2.2 cm LVOT Doppler LVOT Peak Gradient 5 mmHg LVOT Mean Gradient 3 mmHg LVOT VTI 26 cm LVOT VTI/AV VTI Ratio 0.8 LVOT Stroke Volume 95 ml LVOT CO 16.8 l/min LVOT CI 9.2 l/min/m2 Pulmonic Valve Name Value Normal PV Doppler PV Peak Gradient 3 mmHg Mitral Valve Name Value Normal
--- NOTE | ~2022-09-10 | XR_ITS ---
EXAMINATION: XR chest 2V DATE: 09/10/2022 07:41 INDICATION: Chest heaviness TECHNIQUE: AP and lateral views of the chest are obtained. COMPARISON: 07/16/2022 FINDINGS: There is scarring of the lung apices, right greater than left. No pleural effusion or pneum othorax. The lungs are free of acute opacities. The heart size is normal. Median sternotomy wires and mediastinal surgical clips are seen, likely from prior coronary artery bypass grafting. There is a l arge hiatal hernia. IMPRESSION: 1. No acute cardiopulmonary abnormality. Reviewed, dictated and finalized at location A.
[2022-09-10 07:38] LABS: Alanine Aminotransferase 22 U/L (6-50); Albumin Level 3.6 g/dL (3.5-5.1); Alkaline Phosphatase 92 U/L (38-126); Anion Gap 5 mmol/L (8-16); Aspartate Amino Transferase 30 U/L (17-59); Bilirubin,Total 0.5 mg/dL (0.2-1.3); Blood Urea Nitrogen 19 mg/dL (9-20); Calcium 8.5 mg/dL (8.4-10.2); Carbon Dioxide 26 mmol/L (22-30); Chloride 106 mmol/L (98-107); Estimated CRCL calculation 60 ml/min; Estimated Glomerular Filt Rate > 60; Glucose 106 mg/dL (65-110); Lipase 80 U/L (23-300); Potassium 4.1 mmol/L (3.4-5.0); Sodium 137 mmol/L (137-145)
--- NOTE | 2022-09-10 07:38 | ED.CHESTPAIN ---
HPI - Chest Pain General Chief Complaint: Chest Pain Stated Complaint: CP Time Seen by Provider: 09/10/22 07:33 Source: patient and EMS Mode of arrival: EMS Limitations: no limitations History of Present Illness HPI narrative: 81 years old white male woke up at 2 AM to go to the bathroom with severe chest tightness like somebody standing on his chest, somehow patient was not able to get back to bed and probably blacked out. The symptoms resolved at 6:30 AM. Currently patient is asymptomatic and would like to go to sleep. She denies any fever, chills, nausea, vomiting, shortness of breath. Patient reported that he noticed tingling and numbness of the left upper extremity which resolved on arrival to the ED. History of CABG, AAA, coronary artery disease, smoking cigarette. Patient on aspirin Related Data Home Medications Medication Instructions Recorded Confirmed fluticasone 250 mcg-salmeterol 50 1 inh inhalation BID 09/10/22 09/10/22 mcg/dose blistr powdr for inhalation ([facility] Inhub) Allergies Allergy/AdvReac Type Severity Reaction Status Date / Time Penicillins Allergy Severe difficulty Verified 09/10/22 07:21 moving legs Iodinated Contrast Media Allergy Intermediate Hives Verified 09/10/22 07:21 Review of Systems Review of Systems: All systems reviewed & are unremarkable except as noted in HPI and below PMFSH Past Medical History Medical History Abdominal aortic aneurysm (AAA) repaired in 2014 CAD (coronary artery disease) Coronary artery disease CPAP (continuous positive airway pressure) dependence Essential (primary) hypertension Gastroesophageal reflux disease with stricture Heart attack High blood pressure High cholesterol Hospital discharge follow-up Iron deficiency CEDRIC on CPAP Seborrheic keratoses SOB (shortness of breath) Weight loss Surgical History Surgical History H/O abdominal surgery Lower abdominal aneurysm repair/AAA repair H/O cataract extraction H/O heart bypass surgery History of ear surgery History of laparoscopic cholecystectomy Hx of CABG Triple bypass Family History Family History Mother Family history of lung cancer Father Non-Hodgkin lymphoma Social History Social History Social History: He lives with his and daughter. The patient has 5 of his own children and 3 step children and 2 adopted children. The patient worked for [employer] and he retired from the [employer]. The patient stated that he does continue to smoke daily. Denies any alcohol marijuana or illicit drugs. Code status full code. The patient stated he does not want to live in a vegetative state. He stated he only wants to be on a ventilator for 48 hours. Smoking packs per day: 2 Smoking cigarettes per day: 40.0 Years smoked: 60 Smoking pack-years: 120.00 Smoking status: Current every day smoker Alcohol intake: former Alcohol use details: rare Substance use: never Substance use type: does not use Lack of Transportation: No Lack of Food: Never True Current Housing: I Have Housing Concerned About Future Housing: No Difficulty Paying Gas/Electric Bills: No Difficulty Paying for Meds: No Currently Unemployed: No Education: High School Diploma/GED Difficulty w/ Childcare or Family Care: No Living arrangements: with family Occupation/Education: retired Gender identity (if verbalized by the patient): Male Spiritual care concerns: No Agree to blood products: Yes Exam Narrative: General appearance: Well-developed, well-nourished Skin: Normal color Head: Normocephalic, nontraumatic Eyes: Clear conjunctiva ENT: Oropharynx normal, ears normal, nose normal Neck: Supple, nontender Chest and respirator
[2022-09-10 07:51] LABS: Troponin I 0.065 ng/mL (0.000-0.034)
[2022-09-10] MEDS: ASPIRIN 81 MG CHEWABLE TABLET 324 MG PO (08:00)
[2022-09-10 08:01] LABS: INR 1.3; Prothrombin Time 15.4 Seconds (11.1-14.7)
[2022-09-10 08:02] LABS: Partial Thromboplastin Time 34.6 SECONDS (22.3-36.8)
[2022-09-10 08:10] LABS: Basophils Absolute Auto 0.1 K/mm3 (0.0-0.1); Basophils Percent Auto 0.7 % (0.2-1.2); Eosinophils Absolute Auto 0.1 K/mm3 (0-0.3); Eosinophils Percent Auto 1.4 % (0-4.4); Hematocrit 38.8 % (42.0-52.0); Hemoglobin 12.3 g/dL (14.0-18.0); Immature Granulocyte Absolute 0.02 K/mm3 (0.00-0.031); Immature Granulocyte Percent A 0.3 % (0-0.5); Immature Platelet Fraction Pct 2.4 % (0.9-11.2); Lymphocytes Absolute Auto 0.84 K/mm3 (0.9-3.2); Mean Corpuscular HGB Conc 31.7 g/dl (32-36); Mean Corpuscular Hemoglobin 30.6 pg (26-34); Mean Corpuscular Volume 96.5 fl (80-100); Mean Platelet Volume 10.2 fl (7.4-10.4); Monocytes Absolute Auto 0.5 K/mm3 (0.1-0.6); Monocytes Percent Auto 6.7 % (2.6-8.5); Neutrophils Absolute Auto 5.5 K/mm3 (1.3-6.7); Neutrophils Percent Auto 78.9 % (45.5-73.1); Platelet Count Result 130 k/mm3 (150-375); Red Blood Count 4.02 M/mm3 (4.6-6.20); Red Cell Distribution Width 14.3 % (11.5-14.5)
--- NOTE | 2022-09-10 09:06 | ECG_ITS ---
Measurements Intervals [place] Rate: 68 P: 78 TN: 176 QRS: 55 QRSD: 138 T: -66 QT: 446 QTc: 476 Interpretive Statements SINUS RHYTHM WITH MARKED SINUS ARRHYTHMIA ATRIAL PREMATURE COMPLEX INTRAVENTRICULAR CONDUCTION DELAY ST-T WAVE ABNORMALITY IN INFERIOR LEADS- CONSIDER ISCHEMIA ABNORMAL ECG COMPARED TO ECG 07/12/2022 03:59:25 SINUS RHYTHM NOW PRESENT SINUS ARRHYTHMIA NOW PRESENT Electronically Signed On 09-10-2022 16:23:43 CDT by Vick Juárez D.O.
[2022-09-10 09:37] LABS: NT Pro B Type Natriuretic Pept 3950 pg/mL (19.9-100)
--- NOTE | 2022-09-10 11:00 | PM.IMHP ---
H&P: HPI History of Present Illness Date/Time: 09/10/22 08:48 Chief Complaint: Chest pain Narrative: Patient is a 81 year old male with a past medical history or CAD, COPD, COVID, CABG, BPH, CHF, HTN who presented to the ED with complaints of chest pain. Patient stated that this all started at 2 am this morning when it woke him up out of his sleep. Patient stated that it was not a pain it was more of a pressure. Patient stated that he got up and went to the bathroom and went to bed. He was unable to get back to sleep at 6:00 a.m. he decided to have his call an ambulance. At that time he stated that he was sitting on the side the bed and sort of blacked out as he slid onto the floor he denies bumping his head. He did state that he was lying on the floor and that is when his pressure started to subside. He stated that he also got lightheaded and dizzy along with some shortness of breath and sweating when he was having the pressure. He denied nausea, vomiting, diarrhea or constipation. he did state that overall he was feeling better and denies any current chest pain, shortness a breath, nausea, vomiting, diarrhea or constipation. He also denies any current dizziness, lightheadedness at this time as well. He did state that he usually checks his oxygen but does not really follow any other vital signs. He does continue to smoke he states that he has about to a half a pack per day. He denies any current radiation, numbness stomach tingling. He denied taking anything at home to help his symptoms. He does see Dr. Peres in the office and stated that Dr. Rinaldi has recently taken him off his nifedipine. Currently upon arrival his troponin was slightly elevated at 0.065. 3 hours later his troponin went up to 1.210. Did speak to Cardiology who stated that he was aware of the 1st trop however no one reported the 2nd trop. EKGs do not show any change from the 1st EKG to the 2nd EKG. Cardiology also recommended place the patient on full-dose Lovenox 1 milligram/kilogram b.i.d.. Echo has been ordered. BNP is slightly elevated at 3950. Patient is being admitted to the hospitalist service and observation. Review of Systems Review of Systems: All systems reviewed & are unremarkable except as noted in HPI and below PMFSH Past Medical History Medical History Abdominal aortic aneurysm (AAA) repaired in 2014 CAD (coronary artery disease) Coronary artery disease CPAP (continuous positive airway pressure) dependence Essential (primary) hypertension Gastroesophageal reflux disease with stricture Heart attack High blood pressure High cholesterol Hospital discharge follow-up Iron deficiency CEDRIC on CPAP Seborrheic keratoses SOB (shortness of breath) Weight loss Surgical History Surgical History H/O abdominal surgery Lower abdominal aneurysm repair/AAA repair H/O cataract extraction H/O heart bypass surgery History of ear surgery History of laparoscopic cholecystectomy Hx of CABG Triple bypass Family History Family History Mother Family history of lung cancer Father Non-Hodgkin lymphoma Social History Social History Social History: He lives with his and daughter. The patient has 5 of his own children and 3 step children and 2 adopted children. 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 The patient stated that he does continue to smoke daily. Denies any alcohol marijuana or illicit drugs. Code status full code. The patient stated he does not want to live in a vegetative state. He stated he only wants to be on a ventilator for 48 hours. Smoking packs per day: 2 Smoking cigarettes per day: 40.0 Years smoked: 60 Smoking pack-years: 120.00 Smoking
--- NOTE | 2022-09-10 11:50 | ECG_ITS ---
Measurements Intervals [place] Rate: 54 P: 18 GA: 163 QRS: 34 QRSD: 133 T: -56 QT: 518 QTc: 491 Interpretive Statements SINUS BRADYCARDIA INTRAVENTRICULAR CONDUCTION DELAY ST-T WAVE ABNORMALITY IN INFERIOR LEADS- CONSIDER ISCHEMIA BASELINE ARTIFACT- I, II, AVR ABNORMAL ECG COMPARED TO ECG 09/10/2022 07:16:14 SINUS BRADYCARDIA NOW PRESENT Electronically Signed On 09-13-2022 12:47:41 CDT by Vick Juárez D.O.
[2022-09-10] MEDS: ENOXAPARIN 80 MG/0.8 ML SYRINGE 65 MG SUB-Q ×2 (13:31→22:01)
--- NOTE | 2022-09-10 18:11 | PC.NURSE ---
This patient, Jase Knight, was admitted to IMU Room 210-01. Patient/family oriented to hospital policies and general routines including ID bracelet, bed and alarms, visiting hours, pain management, procedures, bathroom and other care routines, personal items, smoking policy, room service/diet, and visiting hours. Information on how to activate the Rapid Response Team has been discussed. Patient/Family are encouraged to report perceived risks to care and to ask questions if they do not understand what they are told or what they should do.
[2022-09-10] MEDS: FLUTICASONE/SALMETEROL 115-21 MCG INHALER 1 PUFF 2 PUFF INHALATION (21:45)
[2022-09-10] MEDS: ATORVASTATIN 10 MG TABLET PO (22:02)
[2022-09-11] VITALS (7 sets, daily range): BP systolic 122–142; BP diastolic 67–99; PULSE 45–68; RESP 16–20; TEMP 36.3–36.4; O2SAT 96–100
[2022-09-11 03:55] LABS: Basophils Absolute Auto 0.1 K/mm3 (0.0-0.1); Basophils Percent Auto 0.7 % (0.2-1.2); Eosinophils Absolute Auto 0.1 K/mm3 (0-0.3); Eosinophils Percent Auto 1.9 % (0-4.4); Hematocrit 38.6 % (42.0-52.0); Hemoglobin 12.1 g/dL (14.0-18.0); Immature Granulocyte Absolute 0.02 K/mm3 (0.00-0.031); Immature Granulocyte Percent A 0.3 % (0-0.5); Lymphocytes Absolute Auto 1.46 K/mm3 (0.9-3.2); Mean Corpuscular HGB Conc 31.3 g/dl (32-36); Mean Corpuscular Volume 95.5 fl (80-100); Mean Platelet Volume 10.3 fl (7.4-10.4); Monocytes Absolute Auto 0.5 K/mm3 (0.1-0.6); Monocytes Percent Auto 6.2 % (2.6-8.5); Neutrophils Absolute Auto 5.2 K/mm3 (1.3-6.7); Neutrophils Percent Auto 70.9 % (45.5-73.1); Platelet Count Result 143 k/mm3 (150-375); Red Blood Count 4.04 M/mm3 (4.6-6.20); Red Cell Distribution Width 14.2 % (11.5-14.5); White Blood Count 7.3 K/mm3 (4.5-10.0)
[2022-09-11 04:05] LABS: Alanine Aminotransferase 22 U/L (6-50); Albumin Level 3.5 g/dL (3.5-5.1); Alkaline Phosphatase 93 U/L (38-126); Anion Gap 1 mmol/L (8-16); Aspartate Amino Transferase 37 U/L (17-59); Bilirubin,Total 0.5 mg/dL (0.2-1.3); Blood Urea Nitrogen 17 mg/dL (9-20); Calcium 8.7 mg/dL (8.4-10.2); Carbon Dioxide 29 mmol/L (22-30); Chloride 108 mmol/L (98-107); Estimated CRCL calculation 54 ml/min; Estimated Glomerular Filt Rate > 60; Glucose 89 mg/dL (65-110); Magnesium 1.9 mg/dL (1.6-2.3); Potassium 4.4 mmol/L (3.4-5.0); Sodium 138 mmol/L (137-145)
--- NOTE | 2022-09-11 09:00 | P.DS_ITS ---
DS: Admitting Diagnosis Discharge Date 09/11/22 0900 Admitting Diagnosis NSTEMI DS: Discharge Diagnosis Discharge Diagnosis (1) Chest pain: Code(s): R07.9 - Chest pain, unspecified Status: Acute Assessment and Plan: * Presented with complaints of severe chest pain * Currently resolved without intervention * Trop slightly elevated at 0.065, 1.210 * Start full dose lovenox * Echo ordered * Cardiology consulted * BNP 3950 * Tele monitor for now * Symptoms resolved * Chest xray shows no acute abnormalities * EKG shows (2) Non-STEMI (non-ST elevated myocardial infarction): Code(s): I21.4 - Non-ST elevation (NSTEMI) myocardial infarction Status: Acute Assessment and Plan: * See above (3) CAD (coronary artery disease): Code(s): I25.10 - Atherosclerotic heart disease of [place] coronary artery without angina pectoris Status: Acute Assessment and Plan: * Chonic * History of CABG * Echo ordered * tele ordered * continue home medications (4) Tobacco abuse: Code(s): Z72.0 - Tobacco use Status: Acute Assessment and Plan: * Continues to smoke * Smoking cessation education given for >8 mins * Patch and gum PRN for cravings (5) Protein-calorie malnutrition, severe: Code(s): E43 - Unspecified severe protein-calorie malnutrition Status: Acute Assessment and Plan: * BMI is 17.6 * Probably related to multiple problems with dentures * Supplements ordered * Education about proper diet given * Consider outpatient marketing senior recruiter follow up (6) CEDRIC on CPAP: Code(s): G47.33 - Obstructive sleep apnea (adult) (pediatric); Z99.89 - Dependence on other enabling machines and devices Status: Acute Assessment and Plan: * Continue home CPAP at home settings * Trend respiratory status (7) Essential (primary) hypertension: Code(s): I10 - Essential (primary) hypertension Status: Acute Assessment and Plan: * BP stable at 104/77 * Hold nifedipine and lisinopril for now with notable hypotension * Trend BP * Adjust therapy as indicated (8) COPD mixed type: Code(s): J44.9 - Chronic obstructive pulmonary disease, unspecified Status: Acute Assessment and Plan: * Stable and chronic * No supplemental oxygen required * Continue home inhalers * Trend respiratory status * adjust therapy as indicated DS: Summary Hospital Course Hospital Course: Patient is 81-year-old male with a past medical history of COPD, BPH, CAD who presented to the ED with complaints of chest pain. Patient stated his chest pain started in the middle of the night the night before and lasted about 6:00 a.m.. He did have an episode of syncope where he did about the floor. Troponins were on trend and were elevated peaking at 2.680. Cardiology was consulted and patient was started on full-dose Lovenox. Multiple EKGs were taken with no ST elevation noted. Chest x-ray was normal. Patient has not had any chest pain since the event. Patient is strongly urging at discharge and it was decided that the patient would follow-up in the cardiology office for a stress test. Echo was performed and showed an EF of 40-45% with grade 1 di
--- NOTE | 2022-09-11 09:00 | PM.DS ---
DS: Admitting Diagnosis Discharge Date 09/11/22 0900 Admitting Diagnosis NSTEMI DS: Discharge Diagnosis Discharge Diagnosis (1) Chest pain: Code(s): R07.9 - Chest pain, unspecified Status: Acute Assessment and Plan: Presented with complaints of severe chest pain Currently resolved without intervention Trop slightly elevated at 0.065, 1.210 Start full dose lovenox Echo ordered Cardiology consulted BNP 3950 Tele monitor for now Symptoms resolved Chest xray shows no acute abnormalities EKG shows (2) Non-STEMI (non-ST elevated myocardial infarction): Code(s): I21.4 - Non-ST elevation (NSTEMI) myocardial infarction Status: Acute Assessment and Plan: See above (3) CAD (coronary artery disease): Code(s): I25.10 - Atherosclerotic heart disease of [place] coronary artery without angina pectoris Status: Acute Assessment and Plan: Chonic History of CABG Echo ordered tele ordered continue home medications (4) Tobacco abuse: Code(s): Z72.0 - Tobacco use Status: Acute Assessment and Plan: Continues to smoke Smoking cessation education given for >8 mins Patch and gum PRN for cravings (5) Protein-calorie malnutrition, severe: Code(s): E43 - Unspecified severe protein-calorie malnutrition Status: Acute Assessment and Plan: BMI is 17.6 Probably related to multiple problems with dentures Supplements ordered Education about proper diet given Consider outpatient opthalmic tech follow up (6) CEDRIC on CPAP: Code(s): G47.33 - Obstructive sleep apnea (adult) (pediatric); Z99.89 - Dependence on other enabling machines and devices Status: Acute Assessment and Plan: Continue home CPAP at home settings Trend respiratory status (7) Essential (primary) hypertension: Code(s): I10 - Essential (primary) hypertension Status: Acute Assessment and Plan: BP stable at 104/77 Hold nifedipine and lisinopril for now with notable hypotension Trend BP Adjust therapy as indicated (8) COPD mixed type: Code(s): J44.9 - Chronic obstructive pulmonary disease, unspecified Status: Acute Assessment and Plan: Stable and chronic No supplemental oxygen required Continue home inhalers Trend respiratory status adjust therapy as indicated DS: Summary Hospital Course Hospital Course: Patient is 81-year-old male with a past medical history of COPD, BPH, CAD who presented to the ED with complaints of chest pain. Patient stated his chest pain started in the middle of the night the night before and lasted about 6:00 a.m.. He did have an episode of syncope where he did about the floor. Troponins were on trend and were elevated peaking at 2.680. Cardiology was consulted and patient was started on full-dose Lovenox. Multiple EKGs were taken with no ST elevation noted. Chest x-ray was normal. Patient has not had any chest pain since the event. Patient is strongly urging at discharge and it was decided that the patient would follow-up in the cardiology office for a stress test. Echo was performed and showed an EF of 40-45% with grade 1 diastolic dysfunction. Patient has been given verbal counseling about when to return to the hospital if given symptoms happen again. Patient will need to call the office tomorrow to set up for a stress test in the office. Labs and vital signs are stable the today. Patient is being discharged to home. Status at Discharge Functional status at discharge: independent ambulation Overall status at discharge: patient is progressing back to baseline Time Spent with Patient Time attestation: Total time spent providing and/or coordinating discharge services: 42 minutes Time spent: Greater than 30 minutes Specific discharge activities: Diagnostic te
[2022-09-11] MEDS: FLUTICASONE/SALMETEROL 115-21 MCG INHALER 1 PUFF 2 PUFF INHALATION (09:05)
--- NOTE | 2022-09-11 09:39 | PM.CNCAR ---
Assessment and Plan Assessment and plan (1) Non-STEMI (non-ST elevated myocardial infarction): Code(s): I21.4 - Non-ST elevation (NSTEMI) myocardial infarction Status: Acute Plan This is a very pleasant 81-year-old man with chronic ischemic heart disease status post surgical revascularization in 1995. He has been doing remarkably well and presents to the hospital after having a non ST elevation MT by troponin criteria. Most likely the patient had a small vessel event because he had no EKG changes and a very modest troponin rise. Certainly this many years later he is at higher risk for having failure of his saphenous vein graft to his circumflex/OM. His LAD is a and right coronary arteries are both grafted by mammary arteries and are unlikely to be the territory responsible for this event. Normally I would recommend keeping the patient in the hospital in conducting a Lexiscan nuclear stress test tomorrow to assess for ischemic burden and then determine whether a follow-up angiogram versus medical therapy should be pursued. The patient has a very challenging a personal situation with an ill in today is their wedding anniversary. He would like to go home and spend the day with her. I told him that we obviously cannot provide assurances that he will be stable to be discharged this soon after an event but he understands that and would like to go home and spend the rest of the day with his . We will go ahead and off arise that and I will arrange for a Lexiscan nuclear stress testing in my office at a short interval after that I will see him in follow-up to discuss those findings. Thank you for asking me to see this nice man again consultation Misael Peres MD [facility] History of Present Illness History of Present Illness Consult date/time: 09/11/22 09:39 Reason For Visit: N STEMI Narrative: This is a very pleasant 81-year-old man with longstanding coronary artery disease I am seeing at the request of the hospitalist because of ACS/non STEMI. Mr. Baig is well known to me since his coronary bypass operation that was done back in 1995. He is a very nice gentleman with multivessel coronary disease who presented with ischemic symptoms back then and received surgical revascularization with a NINA graft to his LAD, right mammary graft to his RCA and a saphenous vein graft to the largest OM branch of his circumflex. He has done remarkably well since then. He has had a couple of follow-up angiograms but his last 1 was approximately 10 years ago. He had some intermittent episodes of chest pain at that time. His catheterization in 2012 showed him to be quite well revascularized. In addition to his coronary disease he has a history of an abdominal aortic aneurysm that was repaired endovascularly in the past as well. He follows up with a vascular surgeon for that. This gentleman rate recent office visits has been concerning to me that he has been losing weight. His BMI is now down to 15.7 and when I saw him last in the office just last month he was asymptomatic but had systolic blood pressure in the 90s and so I took him off of nifedipine at that time. He remained on a modest dose of lisinopril as well as his aspirin and atorvastatin. He was in his usual state of health yesterday when he was awakened in the middle of the night with some chest pain he describes a dull central substernal heaviness that was not severe but was associated with some diaphoresis. When the pain went on for 20-30 minutes he finally called an ambulance he was brought here for further evaluation after about 2 hours or so the symptom resolved on its own without any further intervention and he has felt well since then his electrocardiogram did not show any changes of acute ischemia/injury his troponin levels however were mildly elevated on admission in [place] a risen to a high of 2.4. He was placed on intravenous Lovenox and he is asymptomatic and feels well in the IMU.
[2022-09-11] MEDS: ENOXAPARIN 80 MG/0.8 ML SYRINGE 65 MG SUB-Q (10:11)
[2022-09-11] MEDS: TAMSULOSIN HCL 0.4 MG CAPSULE PO (10:11)
== END 2022-09-11 12:10 | disposition home or self-care (01) ==
LOC: ANHED 09:06 → ANHIMU 17:39
PROVIDERS: Nurse Practitioner; Admitting Provider Student in an Organized Health Care Education/Training Program; Emergency Provider Emergency Medicine; PCP Family Medicine; Visit Provider Chiropractor
DX: I21.4 Non-ST elevation (NSTEMI) myocardial infarction (principal); I25.10 Atherosclerotic heart disease of native coronary artery without angina pectoris; E43 Unspecified severe protein-calorie malnutrition; R20.2 Paresthesia of skin; G47.33 Obstructive sleep apnea (adult) (pediatric); Z99.89 Dependence on other enabling machines and devices; I11.0 Hypertensive heart disease with heart failure; I50.9 Heart failure, unspecified; R07.9 Chest pain, unspecified; J44.9 Chronic obstructive pulmonary disease, unspecified; R20.0 Anesthesia of skin; R42 Dizziness and giddiness; R77.8 Other specified abnormalities of plasma proteins; Z95.1 Presence of aortocoronary bypass graft; I71.40 Abdominal aortic aneurysm, without rupture, unspecified; N40.0 Benign prostatic hyperplasia without lower urinary tract symptoms; K21.9 Gastro-esophageal reflux disease without esophagitis; E78.00 Pure hypercholesterolemia, unspecified; I25.2 Old myocardial infarction; E61.1 Iron deficiency; R63.4 Abnormal weight loss; Z86.16 Personal history of COVID-19; R94.31 Abnormal electrocardiogram [ECG] [EKG]; I08.0 Rheumatic disorders of both mitral and aortic valves; Z68.1 Body mass index [BMI] 19.9 or less, adult; F17.210 Nicotine dependence, cigarettes, uncomplicated; Z79.51 Long term (current) use of inhaled steroids; Z79.82 Long term (current) use of aspirin; Z79.899 Other long term (current) drug therapy
CPT/HCPCS: 36415; 71046; 80053; 83690; 83735; 83880; 84484; 85025; 85055; 85610; 85730; 93005; 93306; 94640; 96372; 99285; A9270; G0378; J1650

== ENCOUNTER 2022-11-06 11:18 | Emergency (ER) | payer MEDICARE, SELFPAY ==
--- NOTE | ~2022-11-06 | CT_ITS ---
EXAMINATION: CT brain wo con INDICATION: Weakness COMPARISON: 11/12/2006 TECHNIQUE: Standard unenhanced head CT. The dose-length product (DLP) was 681.00 mGy-cm. The mA was a djusted according to patient size. Iterative reconstruction technique was employed. FINDINGS: There is a mixed attenuation extra-axial crescentic left-sided fluid collection which measu res up to 2.5 cm. There is mass effect on the left hemisphere with 9 mm of [id number] midline shif t. There is no acute intraparenchymal hemorrhage. No evidence of mass lesion. No evidence of acute in farction. There is mild periventricular and subcortical hypodensity probably related to small vessel ischemic disease. There is mild prominence of the sulci and ventricles related to cerebral atrophy. I ntracranial calcified cerebral atherosclerosis is noted. Changes in the globes are likely from ocula r lens surgery. The visualized sinuses and mastoid air cells are well aerated. IMPRESSION: 1. Subacute left-sided subdural hematoma. These findings were discussed with Dr. Barbara Kaba MD in the Emergency Department at 1210 hours on 11/06/2022 Reviewed, dictated and finalized at location A. IMPRESSION: 1. Subacute left-sided subdural hematoma. These findings were discussed with Dr Contreras Kaba MD in the Emergency Department at 1210 hours on 11/06/2022
--- NOTE | ~2022-11-06 | XR_ITS ---
EXAMINATION: XR chest 1V portable INDICATION: Weakness TECHNIQUE: Portable AP chest at 1201 hours COMPARISON: 09/10/2022 FINDINGS: The lungs are hyperinflated. There is scarring of the lung apices, right greater than left. No pleural effusion or pneumothorax. The heart size is normal. Median sternotomy wires and mediastin al surgical clips are seen, likely from prior coronary artery bypass grafting. There is a partially i catia endovascular stent of the upper abdomen. IMPRESSION: 1. No acute cardiopulmonary abnormality. Reviewed, dictated and finalized at location A.
[2022-11-06 11:17] VITALS: BP 134/78; PULSE 56; RESP 17; TEMP 36.4; O2SAT 99
--- NOTE | 2022-11-06 11:24 | ECG_ITS ---
Measurements Intervals [place] Rate: 55 P: [place]: 0 QRS: 15 QRSD: 129 T: -54 QT: 473 QTc: 454 Interpretive Statements SINUS BRADYCARDIA VENTRICULAR PREMATURE COMPLEX INTRAVENTRICULAR CONDUCTION DELAY EARLY PRECORDIAL R/S TRANSITION ST-T WAVE ABNORMALITY IN INFERIOR LEADS- CONSIDER ISCHEMIA BASELINE ARTIFACT- II, III, AVL, AVR, AVL, AVF, V4-V6 ABNORMAL ECG COMPARED TO ECG 09/10/2022 11:50:53 NO SIGNIFICANT CHANGES Electronically Signed On 11-06-2022 13:06:49 CDT by Vick Juárez D.O.
[2022-11-06 11:30] VITALS: BP 133/84; PULSE 56; RESP 18; O2SAT 99
[2022-11-06 11:59] LABS: Basophils Absolute Auto 0.1 K/mm3 (0.0-0.1); Basophils Percent Auto 0.9 % (0.2-1.2); Eosinophils Absolute Auto 0.1 K/mm3 (0-0.3); Eosinophils Percent Auto 1.5 % (0-4.4); Hematocrit 35.9 % (42.0-52.0); Hemoglobin 11.4 g/dL (14.0-18.0); Immature Granulocyte Absolute 0.02 K/mm3 (0.00-0.031); Immature Granulocyte Percent A 0.3 % (0-0.5); Lymphocytes Absolute Auto 0.75 K/mm3 (0.9-3.2); Lymphocytes Percent Auto 11.5 % (18.3-44.2); Mean Corpuscular HGB Conc 31.8 g/dl (32-36); Mean Corpuscular Hemoglobin 29.8 pg (26-34); Mean Platelet Volume 10.2 fl (7.4-10.4); Monocytes Absolute Auto 0.5 K/mm3 (0.1-0.6); Monocytes Percent Auto 7.4 % (2.6-8.5); Neutrophils Absolute Auto 5.1 K/mm3 (1.3-6.7); Neutrophils Percent Auto 78.4 % (45.5-73.1); Platelet Count Result 114 k/mm3 (150-375); Red Blood Count 3.82 M/mm3 (4.6-6.20); Red Cell Distribution Width 13.2 % (11.5-14.5); White Blood Count 6.5 K/mm3 (4.5-10.0)
[2022-11-06 12:10] LABS: Alanine Aminotransferase 17 U/L (6-50); Alkaline Phosphatase 72 U/L (38-126); Anion Gap 3 mmol/L (8-16); Aspartate Amino Transferase 29 U/L (17-59); Bilirubin,Total 0.3 mg/dL (0.2-1.3); Blood Urea Nitrogen 25 mg/dL (9-20); Calcium 7.9 mg/dL (8.4-10.2); Carbon Dioxide 27 mmol/L (22-30); Chloride 109 mmol/L (98-107); Estimated CRCL calculation 50 ml/min; Estimated Glomerular Filt Rate > 60; Glucose 91 mg/dL (65-110); Potassium 3.7 mmol/L (3.4-5.0); Sodium 139 mmol/L (137-145)
[2022-11-06 12:11] LABS: INR 1.2; Prothrombin Time 15.4 Seconds (11.1-14.7)
[2022-11-06 12:12] LABS: Partial Thromboplastin Time 33.7 SECONDS (22.3-36.8)
[2022-11-06 12:22] LABS: Troponin I < 0.012 ng/mL (0.000-0.034)
[2022-11-06 12:23] LABS: Glucose Point of Care 95 mg/dl (65-105)
[2022-11-06 12:30] VITALS: BP 143/75; PULSE 48; RESP 16; O2SAT 100
--- NOTE | 2022-11-06 12:30 | ED.WEAKNESS ---
HPI - Weakness General Chief complaint: Weakness Stated complaint: weakness Time Seen by Provider: 11/06/22 11:23 Source: patient, EMS, RN notes reviewed and old records reviewed Mode of arrival: EMS Limitations: no limitations History of Present Illness HPI Narrative: This is a 81 year old male with history of CAD, CABG, hypertension who presents for evaluation of weakness. Patient states that he has been feeling listless since Monday. He states he was able to play golf on Monday. He states he tried to play on Monday but he had to stop after 4 holes. He states he has noticed some weakness and numbness to his right leg. His states he fell 2-3 weeks ago and he hit left side of his head. He states he went to get evaluated by his staff educator because they were unsure of why he fell. They wanted to see if his heart was the cause of his fall. He denies chest pain, sob, vomiting, diarrhea, cough or fever. He takes aspirin 81 mg and his last dose was this morning. Related Data Home Medications Medication Instructions Recorded Confirmed fluticasone 250 mcg-salmeterol 50 1 inh inhalation BID 09/10/22 10/21/22 mcg/dose blistr powdr for inhalation (Wixela Inhub) Allergies Allergy/AdvReac Type Severity Reaction Status Date / Time Penicillins Allergy Severe difficulty Verified 10/21/22 08:12 moving legs Iodinated Contrast Media Allergy Intermediate Hives Verified 10/21/22 08:12 Review of Systems Constitutional: Constitutional: Reports fatigue and Reports weakness Cardiovascular: Cardiovascular: Denies syncope, Denies rapid heart rate, Denies irregular heart rhythm, Denies leg edema and Denies dyspnea Respiratory: Respiratory: Denies chest congestion, Denies hemoptysis, Denies excessive phlegm production and Denies dyspnea Gastrointestinal: Gastrointestinal: Denies abdominal pain, Denies hematochezia, Denies diarrhea and Denies vomiting Genitourinary: Genitourinary: Denies hematuria, Denies dysuria, Denies penile discharge and Denies testicular pain Musculoskeletal: Musculoskeletal: Denies joint swelling, Denies loss of height and Reports muscle weakness Neurologic: Denies syncope, Denies focal weakness and Denies weakness PMFSH Past Medical History Medical History Abdominal aortic aneurysm (AAA) repaired in 2014 Anemia Coronary artery disease CPAP (continuous positive airway pressure) dependence Cyst Dysphagia Essential (primary) hypertension Gastroesophageal reflux disease with stricture Heart attack High cholesterol Hyponatremia Lung nodules Non-healing skin lesion of nose CEDRIC on CPAP Pneumonia Pneumonia due to 2019 novel coronavirus Seborrheic keratoses Thrush Weight loss Surgical History Surgical History H/O abdominal surgery Lower abdominal aneurysm repair/AAA repair H/O cataract extraction H/O heart bypass surgery History of ear surgery History of laparoscopic cholecystectomy Hx of CABG Triple bypass Family History Family History Mother Family history of lung cancer Father Non-Hodgkin lymphoma Social History Social History Social History: He lives with his and daughter. The patient has 5 of his own children and 3 step children and 2 adopted children. The patient worked for [employer] and the [employer] and he retired from the [employer]. The patient stated that he does continue to smoke daily. Denies any alcohol marijuana or illicit drugs. Code status full code. The patient stated he does not want to live in a vegetative state. He stated he only wants to be on a ventilator for 48 hours. Smoking packs per day: 2 Smoking cigarettes per day: 40.0 Years smoked: 63 Smoking pack-years: 126.00 Smoking status: Current every day
[2022-11-06 12:33] LABS: SARS-CoV-2 RNA PCR Negative (Negative)
--- NOTE | 2022-11-06 12:44 | PC.NURSE ---
Nurse to Nurse report given to DENIS Mcmillan, at [facility].
[2022-11-06 13:00] VITALS: BP 141/69; PULSE 46; RESP 19; O2SAT 100
--- NOTE | 2022-11-06 13:00 | PC.NURSE ---
Report given to DENIS Pearson, at [facility].
== END 2022-11-06 13:20 | disposition short-term general hospital (02) ==
PROVIDERS: Emergency Provider General Practice; PCP Family Medicine
DX: I62.00 Nontraumatic subdural hemorrhage, unspecified (principal); Z20.822 Contact with and (suspected) exposure to COVID-19; I25.10 Atherosclerotic heart disease of native coronary artery without angina pectoris; I10 Essential (primary) hypertension; D64.9 Anemia, unspecified; K21.9 Gastro-esophageal reflux disease without esophagitis; I25.2 Old myocardial infarction; E78.00 Pure hypercholesterolemia, unspecified; G47.33 Obstructive sleep apnea (adult) (pediatric); Z95.1 Presence of aortocoronary bypass graft; Z86.16 Personal history of COVID-19; Z87.01 Personal history of pneumonia (recurrent); Z98.49 Cataract extraction status, unspecified eye; F17.210 Nicotine dependence, cigarettes, uncomplicated; I49.3 Ventricular premature depolarization; I45.9 Conduction disorder, unspecified; R94.31 Abnormal electrocardiogram [ECG] [EKG]
CPT/HCPCS: 36415; 70450; 71045; 80053; 82948; 84484; 85025; 85610; 85730; 87635; 93005; 99291; L0140; U0005

== ENCOUNTER 2023-02-21 00:27 | Day surgery (SDC) | payer MEDICARE, SELFPAY ==
[2023-02-03 13:26] VITALS: BMI 15.7
[2023-02-21 07:39] VITALS: BP 142/55; PULSE 81; RESP 20; TEMP 36.4; O2SAT 99
[2023-02-21] MEDS: LACTATED RINGERS 1,000 ML 150 ML IV CONT (07:42)
--- NOTE | 2023-02-21 08:02 | WPDHPUPDATE1 ---
History and Physical Update Update Date/Time: 02/21/23 08:02 History and Physical has been reviewed, including an updated exam of the patient. There are NO changes in the patient's condition. Risks, benefits, and alternatives have been discussed and questions answered. Patient agrees to proceed with procedure.
--- NOTE | 2023-02-21 08:12 | WPDANESEPPF ---
Anes - Initial Pre Proc Eval Procedure: Operation Date: 02/21/23 09:00 Proposed Procedures p Esophagogastroduodenoscopy - Sushant Maynard MD Date/Time: 02/21/23 08:12 Surgeon: Sushant Maynard MD Pre Op Diagnosis: GERD,Dysphagia,esophageal obstruction Patient Data Age: 82 Gender: M Height: 1.93 m Weight: 60.5 kg Last Vital Signs Temp 36.4 C L 02/21/23 07:39 Pulse 81 02/21/23 07:39 Resp 20 02/21/23 07:39 BP 142/55 H 02/21/23 07:39 Pulse Ox 99 02/21/23 07:39 O2 Del Method Room Air 02/21/23 07:39 Allergies Allergy/AdvReac Type Severity Reaction Status Date / Time Penicillins Allergy Severe difficulty Verified 02/21/23 07:37 moving legs Iodinated Contrast Media Allergy Intermediate Hives Verified 02/21/23 07:37 Home Medications Medication Instructions Recorded Confirmed Type omeprazole 20 mg capsule,delayed 20 mg PO DAILY #90 caps 05/23/22 02/21/23 Rx release albuterol sulfate 90 mcg/actuation 1 - 2 puff inhalation Q4-6H PRN 07/11/22 02/21/23 Rx aerosol inhaler shortness of breath or wheezing #8.5 grams atorvastatin 10 mg tablet 10 mg PO HS #100 tabs 07/24/22 02/21/23 Rx lisinopril 10 mg tablet 10 mg PO DAILY #30 tabs 07/29/22 02/21/23 Rx tamsulosin 0.4 mg capsule (Flomax) 0.4 mg PO DAILY #30 caps 01/31/23 02/21/23 Rx cetirizine 10 mg tablet (Zyrtec) 10 mg PO DAILY 02/03/23 02/21/23 History fluticasone 250 mcg-salmeterol 50 See Rx Instructions .Route .COMPLEX 02/21/23 02/21/23 History mcg/dose blistr powdr for inhalation (Advair Diskus) Patient hx anesthesia problems: none Family hx anesthesia problems: none Results Review: All pre-operative results and documents have been reviewed as part of the pre-operative evaluation. [facility] Past Medical History Medical History Abdominal aortic aneurysm (AAA) repaired in 2014 Anemia Coronary artery disease CPAP (continuous positive airway pressure) dependence Cyst Dysphagia Essential (primary) hypertension Gastroesophageal reflux disease with stricture Heart attack High cholesterol Hyponatremia Lung nodules Non-healing skin lesion of nose CEDRIC on CPAP Pneumonia Pneumonia due to 2019 novel coronavirus Seborrheic keratoses Thrush Weight loss Surgical History Surgical History H/O abdominal surgery Lower abdominal aneurysm repair/AAA repair H/O cataract extraction H/O heart bypass surgery History of ear surgery History of laparoscopic cholecystectomy Hx of CABG Triple bypass Family History Family History Mother Family history of lung cancer Father Non-Hodgkin lymphoma Social History Social History Social History: He lives with his and daughter. The patient has 5 of his own children and 3 step children and 2 adopted children. The patient worked for [employer] and the [employer] and he retired from the [employer]. The patient stated that he does continue to smoke daily. Denies any alcohol marijuana or illicit drugs. Code status full code. The patient stated he does not want to live in a vegetative state. He stated he only wants to be on a ventilator for 48 hours. Smoking packs per day: 0.5 Smoking cigarettes per day: 10.0 Years smoked: 60 Smoking pack-years: 30.00 Smoking status: Current every day smoker Tobacco type: cigarettes Alcohol intake: never Alcohol use details: rare Substance use: never Substance use type: does not use Lack of Transportation: No Lack of Food: Never True Current Housing: I Have Housing Concerned About Future Housing: No Difficulty Paying Gas/Electric Bills: No Difficulty Paying for Meds: No Currently Unemployed: No Education: High School Diploma/GED Difficulty w/ Childcare or Family Care: No Bailey
[2023-02-21 09:13] VITALS: BP 101/66; PULSE 61; RESP 18; O2SAT 98
[2023-02-21 09:23] VITALS: BP 115/77; PULSE 60; RESP 16; O2SAT 99
[2023-02-21 09:33] VITALS: BP 132/78; PULSE 31; RESP 18; O2SAT 100
== END 2023-02-21 09:42 | disposition home or self-care (01) ==
PROVIDERS: PCP Family Medicine; Visit Provider Internal Medicine Gastroenterology
PROC: 0DJ08ZZ Inspection of Upper Intestinal Tract, Via Natural or Artificial Opening Endoscopic (ICD-10-PCS; CPT 43235; principal; 2023-02-21 09:00)
DX: K22.2 Esophageal obstruction (principal); K21.9 Gastro-esophageal reflux disease without esophagitis; Z79.51 Long term (current) use of inhaled steroids; I25.10 Atherosclerotic heart disease of native coronary artery without angina pectoris; I10 Essential (primary) hypertension; I25.2 Old myocardial infarction; E78.00 Pure hypercholesterolemia, unspecified; G47.33 Obstructive sleep apnea (adult) (pediatric); Z95.1 Presence of aortocoronary bypass graft; F17.210 Nicotine dependence, cigarettes, uncomplicated
CPT/HCPCS: 43249; C1726; J2001; J2704; J7120

== ENCOUNTER 2023-03-30 09:45 | Outpatient (RCR) | payer MEDICARE, SELFPAY ==
[2022-12-02 08:51] VITALS: PULSE 62
== END 2023-03-30 23:59 | disposition home or self-care (01) ==
LOC: ANHCPREHAB 09:45
PROVIDERS: PCP Family Medicine; Visit Provider Specialist
DX: I25.2 Old myocardial infarction (principal)
CPT/HCPCS: 93798

== ENCOUNTER 2023-05-10 09:45 | Outpatient (RCR) | payer MEDICARE, SELFPAY ==
[2023-04-02 00:02] VITALS: PULSE 62
== END 2023-05-10 11:18 | disposition home or self-care (01) ==
LOC: ANHCPREHAB 09:45
PROVIDERS: PCP Family Medicine; Visit Provider Specialist
DX: I25.2 Old myocardial infarction (principal)
CPT/HCPCS: 93798

== ENCOUNTER 2023-05-22 00:44 | Day surgery (SDC) | payer MEDICARE, SELFPAY ==
[2023-05-10 14:07] VITALS: BMI 16.1
--- NOTE | 2023-05-19 10:57 | SUR.PREOP ---
Patient called regarding upcoming procedure. Reviewed preop instructions, appointment times, and procedure prep.
[2023-05-22 12:24] VITALS: BP 117/85; PULSE 87; RESP 18; TEMP 36.6; O2SAT 100
[2023-05-22] MEDS: LACTATED RINGERS 1,000 ML 150 ML IV CONT (12:38)
--- NOTE | 2023-05-22 13:04 | PM.HPGS ---
History of Present Illness History of Present Illness Consent: Risks, benefits, and alternatives have been discussed and questions answered. Patient agrees to proceed with procedure. Chief complaint: Dysphagia Narrative: Ranjit Knight is a 82 year old male Presents for follow-up EGD. Patient has a history of dysphagia. Solid foods will catch in the mid substernal portion the chest. Recent EGD revealed distal esophageal web. This was dilated and patient has been maintained on omeprazole 20mg p.o. daily. Patient presents today for additional dilatation. He denies any significant weight loss but is always thin. He continues to smoke cigarettes on a regular basis. Currently denies heartburn. Review of Systems Review of Systems: Review of systems noncontributory. [facility] Past Medical History Medical History Abdominal aortic aneurysm (AAA) repaired in 2014 Anemia Coronary artery disease CPAP (continuous positive airway pressure) dependence Cyst Dysphagia Essential (primary) hypertension Gastroesophageal reflux disease with stricture Heart attack High cholesterol Hyponatremia Lung nodules Non-healing skin lesion of nose CEDRIC on CPAP Pneumonia Pneumonia due to 2019 novel coronavirus Seborrheic keratoses Thrush Weight loss Surgical History Surgical History H/O abdominal surgery Lower abdominal aneurysm repair/AAA repair H/O cataract extraction H/O heart bypass surgery History of ear surgery History of laparoscopic cholecystectomy Hx of CABG Triple bypass Family History Family History Mother Family history of lung cancer Father Non-Hodgkin lymphoma Social History Social History Social History: He lives with his and daughter. The patient has 5 of his own children and 3 step children and 2 adopted children. The patient worked for [employer] and the [employer] and he retired from the [employer]. The patient stated that he does continue to smoke daily. Denies any alcohol marijuana or illicit drugs. Code status full code. The patient stated he does not want to live in a vegetative state. He stated he only wants to be on a ventilator for 48 hours. Smoking packs per day: 1 Smoking cigarettes per day: 20.0 Years smoked: 60 Smoking pack-years: 60.00 Smoking status: Current every day smoker Tobacco type: cigarettes Alcohol intake: never Alcohol use details: occasional Substance use: never Substance use type: does not use Lack of Transportation: No Lack of Food: Never True Current Housing: I Have Housing Concerned About Future Housing: No Difficulty Paying Gas/Electric Bills: No Difficulty Paying for Meds: No Currently Unemployed: No Education: High School Diploma/GED Difficulty w/ Childcare or Family Care: No Living arrangements: with family Occupation/Education: retired Gender identity (if verbalized by the patient): Male Spiritual care concerns: No Agree to blood products: Yes Meds Home Medications and Allergies Home Medications Medication Instructions Recorded Confirmed Type omeprazole 20 mg capsule,delayed 20 mg PO DAILY #90 caps 05/23/22 05/10/23 Rx release albuterol sulfate 90 mcg/actuation 1 - 2 puff inhalation Q4-6H PRN 07/11/22 05/10/23 Rx aerosol inhaler shortness of breath or wheezing #8.5 grams atorvastatin 10 mg tablet 10 mg PO HS #100 tabs 07/24/22 05/10/23 Rx tamsulosin 0.4 mg capsule (Flomax) 0.4 mg PO DAILY #30 caps 01/31/23 05/10/23 Rx cetirizine 10 mg tablet (Zyrtec) 10 mg PO DAILY 02/03/23 05/10/23 History fluticasone 250 mcg-salmeterol 50 See Rx Instructions .Route .COMPLEX 02/21/23 05/10/23 History mcg/dose blistr powdr for inhalation (Advair Diskus) lisinopril 10 mg tablet
--- NOTE | 2023-05-22 13:17 | WPDANESEPPF ---
Anes - Initial Pre Proc Eval Procedure: Operation Date: 05/22/23 13:30 Proposed Procedures p Esophagogastroduodenoscopy - Sushant Maynard MD Date/Time: 05/22/23 13:17 Surgeon: Sushant Maynard MD Pre Op Diagnosis: Dysphagia Patient Data Age: 82 Gender: M Height: 1.93 m Weight: 59.1 kg Last Vital Signs Temp 97.9 F 05/22/23 12:24 Pulse 87 05/22/23 12:24 Resp 18 05/22/23 12:24 BP 117/85 05/22/23 12:24 Pulse Ox 100 05/22/23 12:24 O2 Del Method Room Air 05/22/23 12:24 Allergies Allergy/AdvReac Type Severity Reaction Status Date / Time Penicillins Allergy Severe difficulty Verified 05/22/23 12:22 moving legs Iodinated Contrast Media Allergy Intermediate Hives Verified 05/22/23 12:22 Home Medications Medication Instructions Recorded Confirmed Type omeprazole 20 mg capsule,delayed 20 mg PO DAILY #90 caps 05/23/22 05/10/23 Rx release albuterol sulfate 90 mcg/actuation 1 - 2 puff inhalation Q4-6H PRN 07/11/22 05/10/23 Rx aerosol inhaler shortness of breath or wheezing #8.5 grams atorvastatin 10 mg tablet 10 mg PO HS #100 tabs 07/24/22 05/10/23 Rx tamsulosin 0.4 mg capsule (Flomax) 0.4 mg PO DAILY #30 caps 01/31/23 05/10/23 Rx cetirizine 10 mg tablet (Zyrtec) 10 mg PO DAILY 02/03/23 05/10/23 History fluticasone 250 mcg-salmeterol 50 See Rx Instructions .Route .COMPLEX 02/21/23 05/10/23 History mcg/dose blistr powdr for inhalation (Advair Diskus) lisinopril 10 mg tablet 10 mg PO DAILY #100 tabs 04/27/23 05/10/23 Rx Patient hx anesthesia problems: none Family hx anesthesia problems: none Results Review: All pre-operative results and documents have been reviewed as part of the pre-operative evaluation. [facility] Past Medical History Medical History Abdominal aortic aneurysm (AAA) repaired in 2014 Anemia Coronary artery disease CPAP (continuous positive airway pressure) dependence Cyst Dysphagia Essential (primary) hypertension Gastroesophageal reflux disease with stricture Heart attack High cholesterol Hyponatremia Lung nodules Non-healing skin lesion of nose CEDRIC on CPAP Pneumonia Pneumonia due to 2019 novel coronavirus Seborrheic keratoses Thrush Weight loss Surgical History Surgical History H/O abdominal surgery Lower abdominal aneurysm repair/AAA repair H/O cataract extraction H/O heart bypass surgery History of ear surgery History of laparoscopic cholecystectomy Hx of CABG Triple bypass Family History Family History Mother Family history of lung cancer Father Non-Hodgkin lymphoma Social History Social History Social History: He lives with his and daughter. The patient has 5 of his own children and 3 step children and 2 adopted children. The patient worked for [employer] and the [employer] and he retired from the [employer]. The patient stated that he does continue to smoke daily. Denies any alcohol marijuana or illicit drugs. Code status full code. The patient stated he does not want to live in a vegetative state. He stated he only wants to be on a ventilator for 48 hours. Smoking packs per day: 1 Smoking cigarettes per day: 20.0 Years smoked: 60 Smoking pack-years: 60.00 Smoking status: Current every day smoker Tobacco type: cigarettes Alcohol intake: never Alcohol use details: occasional Substance use: never Substance use type: does not use Lack of Transportation: No Lack of Food: Never True Current Housing: I Have Housing Concerned About Future Housing: No Difficulty Paying Gas/Electric Bills: No Difficulty Paying for Meds: No Currently Unemployed: No Education: High School Diploma/GED Difficulty w/ Childcare or Family Care: No Living arrangements: with fa
[2023-05-22 13:51] VITALS: BP 94/61; PULSE 63; RESP 18; O2SAT 100
[2023-05-22 14:01] VITALS: BP 100/63; PULSE 61; RESP 24; O2SAT 100
[2023-05-22 14:11] VITALS: BP 120/66; PULSE 61; RESP 24; O2SAT 99
--- NOTE | 2023-05-22 15:21 | SUR.PHASEII ---
Pt. family member waiting to talk with Dr. Maynard after ERCP procedure.
== END 2023-05-22 15:30 | disposition home or self-care (01) ==
PROVIDERS: PCP Family Medicine; Visit Provider Internal Medicine Gastroenterology
PROC: 0DJ08ZZ Inspection of Upper Intestinal Tract, Via Natural or Artificial Opening Endoscopic (ICD-10-PCS; CPT 43235; principal; 2023-05-22 13:30)
DX: R13.19 Other dysphagia (principal); K44.9 Diaphragmatic hernia without obstruction or gangrene; K22.2 Esophageal obstruction; K22.5 Diverticulum of esophagus, acquired; I10 Essential (primary) hypertension; D64.9 Anemia, unspecified; E78.00 Pure hypercholesterolemia, unspecified; G47.33 Obstructive sleep apnea (adult) (pediatric); K21.9 Gastro-esophageal reflux disease without esophagitis; I25.2 Old myocardial infarction; E87.1 Hypo-osmolality and hyponatremia; F17.210 Nicotine dependence, cigarettes, uncomplicated; Z79.51 Long term (current) use of inhaled steroids; Z98.890 Other specified postprocedural states; Z99.89 Dependence on other enabling machines and devices; Z90.49 Acquired absence of other specified parts of digestive tract; Z95.1 Presence of aortocoronary bypass graft; Z86.79 Personal history of other diseases of the circulatory system; Z80.1 Family history of malignant neoplasm of trachea, bronchus and lung; Z80.7 Family history of other malignant neoplasms of lymphoid, hematopoietic and related tissues
CPT/HCPCS: 43249; C1726; J2001; J2704; J7120

== ENCOUNTER 2023-07-27 12:28 | Outpatient (CLI) | payer MEDICARE, SELFPAY ==
--- NOTE | 2023-07-28 07:09 | WPDSIXMINUTE ---
Six Minute Walk Procedure Procedure Performed Pulmonary Stress Test (6 min walk) Six Minute Walk Six Minute Walk: This is a 6 minute walk test. The test was performed and interpreted in accordance with the 2014 ERS/ATS task force guidelines. Findings: The patient's resting room air oxygen saturation measured by pulse oximetry was 98% and heart rate was 68 bpm. Patient ambulated for 335 meters and oxygen saturation remained 96 to 98%. Heart rate at the end of the study was 103 bpm. The patient did not qualify for supplemental oxygen at rest or with ambulation. There are no prior studies for comparison.
--- NOTE | 2023-07-28 07:10 | WPDPFTINT ---
PFT Procedure Performed PFT Procedure Performed Spirometry with Pre/Post Bronchodilator Plethysmography (Lung Vol) Diffusing Cap (DLCO) Flow Vol Loop PFT Interpretation This is a pulmonary function test with pre and post-bronchodilator spirometry, plethysmography and diffusing capacity. The test was performed and results interpreted in accordance with the 2019 and 2005 ATS/ERS Task Force guidelines respectively using the Global Lung Function Initiative-2012 reference equations. Patient demonstrated good effort and cooperation. Reproducibility criteria were met. The quality of the pre bronchodilator spirometry maneuver was Grade A and post bronchodilator spirometry maneuver was Grade A. Findings: Spirometry: There is decreased maximal expiratory airflow at all lung volumes. The contour the inspiratory flow tracing is normal. The pre bronchodilator FVC is 4.15 L, 88% predicted. The pre bronchodilator FEV1 is 2.38 L, 69% predicted. The pre bronchodilator FEV1: FVC ratio is 57%. The post bronchodilator FVC is 4.09 L, representing a 2% decrease. The post bronchodilator FEV1 is 2.22 L, representing a 7% decrease. The post bronchodilator FEV1: FVC ratio is 54%. Plethysmography: The total lung capacity is 9.09 L, 110% predicted. The functional residual capacity is 6.84 L, 151% predicted. The residual volume is 4.94 L, 165% predicted. The residual volume: Total lung capacity ratio is 54%. Diffusing capacity: The diffusing capacity unadjusted for hemoglobin and carboxyhemoglobin is 14.0, 53% predicted. The diffusing capacity adjusted for alveolar volume is 2.44, 74% predicted. Impression: There is a moderate obstructive abnormality. There is no significant improvement after inhaling a single dose of albuterol. The increase in residual volume to total lung volume ratio is consistent with hyperinflation from an obstructive abnormality. The diffusing capacity unadjusted for hemoglobin and carboxyhemoglobin is moderately decreased and normalizes when adjusted for alveolar volume. There are no prior studies for comparison
== END 2023-07-27 12:29 | disposition home or self-care (01) ==
PROVIDERS: PCP Family Medicine; Visit Provider Physician Assistant
DX: J44.9 Chronic obstructive pulmonary disease, unspecified (principal)
CPT/HCPCS: 94060; 94618; 94726; 94729

== ENCOUNTER 2023-08-25 18:58 | Emergency (ER) | payer MEDICARE, SELFPAY ==
--- NOTE | ~2023-08-25 | CT_ITS ---
EXAMINATION: CT abdomen pelvis wo con DATE: 08/25/2023 20:41 INDICATION: Constipation. TECHNIQUE: Computed tomography (CT) of the abdomen and pelvis was performed without intravenous contr ast. Automated exposure control and iterative reconstruction technique were employed. The dose-length product was 206.79 mGy-cm. COMPARISON: CT abdomen and pelvis 07/12/22 FINDINGS: The visualized portions of the lung bases demonstrate severe emphysema. There are centrilob ular nodules and tree-in-bud opacities in the lower lobes, consistent with pneumonia. No pleural effu mariola. The heart size is normal. No pericardial effusion. There are pacer wires in right atrium and ri ght ventricle. There is a large sliding hiatal hernia. The liver and spleen are normal. There are tana nges of cholecystectomy. The pancreas and adrenal glands are normal. There are cysts in the kidneys m easuring up to 8.4 cm on the right. There is a 3.3 cm fusiform aneurysm of infrarenal aorta with sten t graft in expected position. There is calcified atherosclerosis of the aorta and many of the other a rteries. There is a large volume of stool in the distal colon. Stool distends the rectosigmoid. The p rostate is moderately enlarged. There are no pathologically enlarged lymph nodes. There is no free in traperitoneal fluid. There is severe lumbar spondylosis. There is a chronic benign bone island in L1 vertebral body. IMPRESSION: 1. Large volume of stool in the distal colon colon with distention of the rectosigmoid. 2. Mild pneumonia in the lower lobes. 3. Severe emphysema. 4. Large sliding hiatal hernia. Reviewed, dictated and finalized at location E. [employer] [facility] IMPRESSION: 1. Large volume of stool in the distal colon colon with distention of the recto sigmoid. 2. Mild pneumonia in the lower lobes. 3. Severe emphysema. 4. Large sliding hiatal hernia.
[2023-08-25 19:01] VITALS: BP 114/57; PULSE 87; RESP 18; TEMP 36.4; O2SAT 98
[2023-08-25 19:19] LABS: Basophils Absolute Auto 0.1 K/mm3 (0.0-0.1); Basophils Percent Auto 0.5 % (0.2-1.2); Eosinophils Absolute Auto 0.1 K/mm3 (0-0.3); Eosinophils Percent Auto 0.5 % (0-4.4); Hematocrit 41.2 % (42.0-52.0); Hemoglobin 12.9 g/dL (14.0-18.0); Immature Granulocyte Absolute 0.06 K/mm3 (0.00-0.031); Immature Granulocyte Percent A 0.5 % (0-0.5); Lymphocytes Absolute Auto 0.72 K/mm3 (0.9-3.2); Lymphocytes Percent Auto 5.6 % (18.3-44.2); Mean Corpuscular HGB Conc 31.3 g/dl (32-36); Mean Corpuscular Hemoglobin 28.9 pg (26-34); Mean Corpuscular Volume 92.2 fl (80-100); Mean Platelet Volume 9.1 fl (7.4-10.4); Monocytes Absolute Auto 0.8 K/mm3 (0.1-0.6); Monocytes Percent Auto 6.1 % (2.6-8.5); Neutrophils Absolute Auto 11.2 K/mm3 (1.3-6.7); Neutrophils Percent Auto 86.8 % (45.5-73.1); Platelet Count Result 194 k/mm3 (150-375); Red Blood Count 4.47 M/mm3 (4.6-6.20); White Blood Count 12.9 K/mm3 (4.5-10.0)
[2023-08-25 19:31] LABS: Alanine Aminotransferase 17 U/L (6-50); Albumin Level 3.9 g/dL (3.5-5.1); Alkaline Phosphatase 107 U/L (38-126); Anion Gap 2 mmol/L (8-16); Aspartate Amino Transferase 25 U/L (17-59); Bilirubin,Total 0.6 mg/dL (0.2-1.3); Blood Urea Nitrogen 32 mg/dL (9-20); Calcium 9.3 mg/dL (8.4-10.2); Carbon Dioxide 29 mmol/L (22-30); Chloride 104 mmol/L (98-107); Estimated CRCL calculation 43 ml/min; Estimated Glomerular Filt Rate > 60; Glucose 108 mg/dL (65-110); Lipase 155 U/L (23-300); Potassium 5.1 mmol/L (3.4-5.0); Sodium 135 mmol/L (137-145)
--- NOTE | 2023-08-25 19:48 | PC.NURSE ---
Pt to intake desk stating I feel like I am going to pass out. Pt placed in a wheel chair in front of this rn. This rn notified ed charge nurse. Plan to place pt in next available room.
--- NOTE | 2023-08-25 19:55 | PC.NURSE ---
Pt has c/o abdominal pain returning at this time. Pt updated that we are working on getting him a room in the back.
--- NOTE | 2023-08-25 20:31 | ED.GENADULT ---
HPI - General Adult General Chief complaint: Abdominal Pain Stated complaint: abdominal pain Time Seen by Provider: 08/25/23 20:08 History of Present Illness HPI narrative: This is an 82-year-old male history of constipation presenting with constipation. Patient recently switched his stool softener from Dulcolax 2 a gel tablet and notes that he is now having difficulty bowel movement. He is still passing gas. No nausea or vomiting. He has some abdominal discomfort in the left lower quadrant. Patient has been given himself enemas and suppositories at home with no relief. Related Data Home Medications Medication Instructions Recorded Confirmed cetirizine 10 mg tablet (Zyrtec) 10 mg PO DAILY 02/03/23 08/11/23 fluticasone 250 mcg-salmeterol 50 See Rx Instructions .Route .COMPLEX 02/21/23 08/11/23 mcg/dose blistr powdr for inhalation (Advair Diskus) Allergies Allergy/AdvReac Type Severity Reaction Status Date / Time Penicillins Allergy Severe difficulty Verified 08/25/23 18:59 moving legs Iodinated Contrast Media Allergy Intermediate Hives Verified 08/25/23 18:59 [facility] Past Medical History Medical History Abdominal aortic aneurysm (AAA) repaired in 2014 Anemia Coronary artery disease CPAP (continuous positive airway pressure) dependence Cyst Dysphagia Essential (primary) hypertension Gastroesophageal reflux disease with stricture Heart attack High cholesterol Hyponatremia Lung nodules Non-healing skin lesion of nose CEDRIC on CPAP Pneumonia Pneumonia due to 2019 novel coronavirus Seborrheic keratoses Thrush Weight loss Surgical History Surgical History H/O abdominal surgery Lower abdominal aneurysm repair/AAA repair H/O cataract extraction H/O heart bypass surgery History of ear surgery History of laparoscopic cholecystectomy Hx of CABG Triple bypass Family History Family History Mother Family history of lung cancer Father Non-Hodgkin lymphoma Social History Social History Social History: He lives with his and daughter. The patient has 5 of his own children and 3 step children and 2 adopted children. The patient worked for [employer] and the [employer] and he retired from the [employer]. The patient stated that he does continue to smoke daily. Denies any alcohol marijuana or illicit drugs. Code status full code. The patient stated he does not want to live in a vegetative state. He stated he only wants to be on a ventilator for 48 hours. Smoking packs per day: 1 Smoking cigarettes per day: 20.0 Years smoked: 60 Smoking pack-years: 60.00 Smoking status: Current every day smoker Tobacco type: cigarettes Alcohol intake: never Alcohol use details: occasional Substance use: never Substance use type: does not use Lack of Transportation: No Lack of Food: Never True Current Housing: I Have Housing Concerned About Future Housing: No Difficulty Paying Gas/Electric Bills: No Difficulty Paying for Meds: No Currently Unemployed: No Education: High School Diploma/GED Difficulty w/ Childcare or Family Care: No Living arrangements: with family Occupation/Education: retired Gender identity (if verbalized by the patient): Male Spiritual care concerns: No Agree to blood products: Yes Exam Narrative: APPEARANCE: No apparent distress. Head: atraumatic. EYES: EOMI, NOSE: Atraumatic NECK: Trachea midline RESPIRATORY: No increased rate of breathing CARDIOVASCULAR: RRR, ABDOMINAL: Non-distended, soft, reported tenderness in left lower quadrant but no grimace. MUSCULOSKELETAl: No obvious deformities NEURO: Alert. Moving 4/4 extremities SKIN:: Warm, dry. Normal color PSYCHIATRIC: Normal affect Course Vital S
[2023-08-25 20:54] VITALS: BP 104/77; PULSE 83; RESP 18; O2SAT 97
--- NOTE | 2023-08-25 21:01 | PC.NURSE ---
edp dr. whitmore verbal discontinue bisacodyl suppository and verbally ordered enema. pt updated. this rn used closed loop communication to confirm discontinuation of medication and administration of enema with edp dr. whitmore. edp confirmed.
== END 2023-08-25 21:56 | disposition home or self-care (01) ==
PROVIDERS: Student in an Organized Health Care Education/Training Program; Emergency Provider Emergency Medicine; PCP Family Medicine
DX: K56.41 Fecal impaction (principal); I25.10 Atherosclerotic heart disease of native coronary artery without angina pectoris; I10 Essential (primary) hypertension; K21.9 Gastro-esophageal reflux disease without esophagitis; I25.2 Old myocardial infarction; E78.00 Pure hypercholesterolemia, unspecified; G47.33 Obstructive sleep apnea (adult) (pediatric); D64.9 Anemia, unspecified; Z87.01 Personal history of pneumonia (recurrent); Z86.16 Personal history of COVID-19; Z98.49 Cataract extraction status, unspecified eye; Z90.49 Acquired absence of other specified parts of digestive tract; Z95.1 Presence of aortocoronary bypass graft; F17.210 Nicotine dependence, cigarettes, uncomplicated
CPT/HCPCS: 36415; 74176; 80053; 83690; 85025; 99284; A9270

== ENCOUNTER 2023-09-17 15:07 | Emergency (ER) | payer MEDICARE, SELFPAY ==
--- NOTE | ~2023-09-17 | CT_ITS ---
EXAMINATION: CT abdomen pelvis wo con DATE: 09/17/2023 17:16 INDICATION: Constipation. TECHNIQUE: Computed tomography (CT) of the abdomen and pelvis was performed without intravenous contr ast. Automated exposure control and iterative reconstruction technique were employed. The dose-length product was 256.54 mGy-cm. COMPARISON: CT abdomen and pelvis 08/25/2023 FINDINGS: The visualized portions of the lung bases demonstrate severe emphysema. There are patchy ai rspace opacities in lower lobes. No pleural effusion. There is a large sliding hiatal hernia. The hea rt size is normal. No pericardial effusion. There are pacer wires in the region and right ventricle. Median sternotomy wires are noted. Calcifications in the liver and spleen are consistent with old gra nulomatous disease. There are changes of cholecystectomy. There is calcified atherosclerosis of the a sumit and many of the other arteries. The pancreas and adrenal glands are normal. There are cysts in t he kidneys measuring up to 8.6 cm on the right. Stool distends the rectosigmoid. There is a stent gra ft in abdominal aorta and the common iliac arteries. There is a fusiform aneurysm of abdominal aorta measuring 3.5 cm. The prostate is moderately enlarged. There are no pathologically enlarged lymph nod es. There is no free intraperitoneal fluid. There is severe lumbar spondylosis. There is a chronic be nign bone island in L1 vertebral body. IMPRESSION: 1. Stool distends the rectosigmoid. 2. Severe emphysema. 3. Airspace opacities in the lower lobes, consistent with atelectasis versus pneumonia. 4. Large sliding hiatal hernia. Reviewed, dictated and finalized at location E. IMPRESSION: 1. Stool distends the rectosigmoid. 2. Severe emphysema. 3. Airspace opacities in the lower lobes, consistent with atelectasis versus pn eumonia. 4. Large sliding hiatal hernia.
[2023-09-17 15:11] VITALS: BP 120/74; PULSE 88; RESP 16; TEMP 36.6; O2SAT 98
--- NOTE | 2023-09-17 16:22 | ED.ABDPAIN ---
HPI - Abdominal Pain General Chief Complaint: Abdominal Pain Stated Complaint: constipated Time Seen by Provider: 09/17/23 16:22 Source: patient and family Mode of arrival: ambulatory Limitations: no limitations History of Present Illness HPI narrative: 82 YEARS OLD WHITE MALE CAME TO THE EMERGENCY ROOM WITH HIS DAUGHTER COMPLAINING OF NO BOWEL MOVEMENT OVER 7 DAYS. PATIENT REPORTED POOR APPETITE AND LOSING WEIGHT A LOT LATELY. PATIENT WAS SEEN IN OUR EMERGENCY ROOM 2 WEEKS AGO FOR THE SAME PROBLEM, FAILED MANUAL FECAL DISIMPACTION, PATIENT WAS GETTING BETTER AT HOME AND DULCOLAX P.O.. DAUGHTER IS TELLING ME THAT HE DOES NOT TAKE HIS MEDICATION SCHEDULED. HE DENIES ANY FEVER, CHILLS, NAUSEA, VOMITING, ABDOMINAL PAIN. Related Data Home Medications Medication Instructions Recorded Confirmed cetirizine 10 mg tablet (Zyrtec) 10 mg PO DAILY 02/03/23 09/01/23 fluticasone 250 mcg-salmeterol 50 See Rx Instructions .Route .COMPLEX 02/21/23 09/01/23 mcg/dose blistr powdr for inhalation (Advair Diskus) Allergies Allergy/AdvReac Type Severity Reaction Status Date / Time Penicillins Allergy Severe difficulty Verified 09/17/23 15:07 moving legs Iodinated Contrast Media Allergy Intermediate Hives Verified 09/17/23 15:07 Review of Systems Review of Systems: All systems reviewed & are unremarkable except as noted in HPI and below PMFSH Past Medical History Medical History Abdominal aortic aneurysm (AAA) repaired in 2014 Anemia Coronary artery disease CPAP (continuous positive airway pressure) dependence Cyst Dysphagia Essential (primary) hypertension Gastroesophageal reflux disease with stricture Heart attack High cholesterol Hyponatremia Lung nodules Non-healing skin lesion of nose CEDRIC on CPAP Pneumonia Pneumonia due to 2019 novel coronavirus Seborrheic keratoses Thrush Weight loss Surgical History Surgical History H/O abdominal surgery Lower abdominal aneurysm repair/AAA repair H/O cataract extraction H/O heart bypass surgery History of ear surgery History of laparoscopic cholecystectomy Hx of CABG Triple bypass Family History Family History Mother Family history of lung cancer Father Non-Hodgkin lymphoma Social History Social History Social History: He lives with his and daughter. The patient has 5 of his own children and 3 step children and 2 adopted children. The patient worked for [employer] and the [employer] and he retired from the [employer]. The patient stated that he does continue to smoke daily. Denies any alcohol marijuana or illicit drugs. Code status full code. The patient stated he does not want to live in a vegetative state. He stated he only wants to be on a ventilator for 48 hours. Smoking packs per day: 1 Smoking cigarettes per day: 20.0 Years smoked: 60 Smoking pack-years: 60.00 Smoking status: Current every day smoker Tobacco type: cigarettes Alcohol intake: never Alcohol use details: occasional Substance use: never Substance use type: does not use Lack of Transportation: No Lack of Food: Never True Current Housing: I Have Housing Concerned About Future Housing: No Difficulty Paying Gas/Electric Bills: No Difficulty Paying for Meds: No Currently Unemployed: No Education: High School Diploma/GED Difficulty w/ Childcare or Family Care: No Living arrangements: with family Occupation/Education: retired Gender identity (if verbalized by the patient): Male Spiritual care concerns: No Agree to blood products: Yes Exam Narrative: GENERAL APPEARANCE: WELL-DEVELOPED, MALNOURISHED SKIN: NORMAL COLOR HEAD: NORMOCEPHALIC, NONTRAUMATIC EYES: CLEAR CONJUNCTIVA ENT: OROPHARYNX NORMAL, EARS NORMAL
[2023-09-17 16:46] LABS: Basophils Absolute Auto 0.1 K/mm3 (0.0-0.1); Basophils Percent Auto 0.6 % (0.2-1.2); Eosinophils Absolute Auto 0.1 K/mm3 (0-0.3); Eosinophils Percent Auto 0.8 % (0-4.4); Hematocrit 39.4 % (42.0-52.0); Hemoglobin 12.4 g/dL (14.0-18.0); Immature Granulocyte Absolute 0.03 K/mm3 (0.00-0.031); Immature Granulocyte Percent A 0.4 % (0-0.5); Lymphocytes Absolute Auto 0.88 K/mm3 (0.9-3.2); Lymphocytes Percent Auto 10.4 % (18.3-44.2); Mean Corpuscular HGB Conc 31.5 g/dl (32-36); Mean Corpuscular Volume 92.1 fl (80-100); Mean Platelet Volume 9.4 fl (7.4-10.4); Monocytes Absolute Auto 0.4 K/mm3 (0.1-0.6); Monocytes Percent Auto 4.7 % (2.6-8.5); Neutrophils Percent Auto 83.1 % (45.5-73.1); Platelet Count Result 169 k/mm3 (150-375); Red Blood Count 4.28 M/mm3 (4.6-6.20); Red Cell Distribution Width 15.5 % (11.5-14.5); White Blood Count 8.4 K/mm3 (4.5-10.0)
[2023-09-17] MEDS: SODIUM CHLORIDE 0.9% IV 1,000 ML 125 ML IV CONT (16:56)
[2023-09-17 17:06] LABS: Alanine Aminotransferase 15 U/L (6-50); Albumin Level 4.1 g/dL (3.5-5.1); Alkaline Phosphatase 113 U/L (38-126); Anion Gap 6 mmol/L (4-12); Aspartate Amino Transferase 33 U/L (17-59); Bilirubin,Total 0.7 mg/dL (0.2-1.3); Blood Urea Nitrogen 32 mg/dL (9-20); Calcium 9.2 mg/dL (8.4-10.2); Carbon Dioxide 28 mmol/L (22-30); Chloride 102 mmol/L (98-107); Estimated Glomerular Filt Rate > 60; Glucose 98 mg/dL (65-110); Lipase 81 U/L (23-300); Potassium 4.5 mmol/L (3.4-5.0); Sodium 136 mmol/L (137-145)
--- NOTE | 2023-09-17 18:34 | PC.NURSE ---
when pt went to bathroom after enema pt was unable to collect urine specimen. pt declining straight cath at this time.
== END 2023-09-17 18:57 | disposition home or self-care (01) ==
PROVIDERS: Emergency Provider Emergency Medicine; PCP Family Medicine
DX: K59.00 Constipation, unspecified (principal); I25.10 Atherosclerotic heart disease of native coronary artery without angina pectoris; I10 Essential (primary) hypertension; K21.9 Gastro-esophageal reflux disease without esophagitis; Z95.5 Presence of coronary angioplasty implant and graft; F17.210 Nicotine dependence, cigarettes, uncomplicated
CPT/HCPCS: 36415; 74176; 80053; 83690; 85025; 96360; 96361; 99284; J7030

== ENCOUNTER 2023-10-16 02:59 | Day surgery (SDC) | payer MEDICARE, SELFPAY ==
[2023-10-04 09:30] VITALS: BMI 15.3
[2023-10-16 07:46] VITALS: BP 109/67; PULSE 87; RESP 20; TEMP 36.3; O2SAT 93
[2023-10-16] MEDS: LACTATED RINGERS 1,000 ML 150 ML IV CONT (07:58)
--- NOTE | 2023-10-16 08:01 | WPDANESEPPF ---
Anes - Initial Pre Proc Eval Procedure: Operation Date: 10/16/23 09:00 Proposed Procedures p Esophagogastroduodenoscopy - Mick Carbajal MD Date/Time: 10/16/23 08:01 Surgeon: Mick Carbajal MD Pre Op Diagnosis: GERD,Dysphagia,Esophageal Obstruction Patient Data Age: 82 Gender: M Height: 1.93 m Weight: 56.1 kg Last Vital Signs Temp 97.3 F L 10/16/23 07:46 Pulse 87 10/16/23 07:46 Resp 20 10/16/23 07:46 BP 109/67 10/16/23 07:46 Pulse Ox 93 10/16/23 07:46 O2 Del Method Room Air 10/16/23 07:46 Allergies Allergy/AdvReac Type Severity Reaction Status Date / Time Penicillins Allergy Severe difficulty Verified 10/16/23 07:45 moving legs Iodinated Contrast Media Allergy Intermediate Hives Verified 10/16/23 07:45 Home Medications Medication Instructions Recorded Confirmed Type cetirizine 10 mg tablet (Zyrtec) 10 mg PO DAILY 02/03/23 10/04/23 History fluticasone 250 mcg-salmeterol 50 See Rx Instructions .Route .COMPLEX 02/21/23 10/04/23 History mcg/dose blistr powdr for inhalation (Advair Diskus) lisinopril 10 mg tablet 10 mg PO DAILY #100 tabs 04/27/23 10/04/23 Rx omeprazole 20 mg capsule,delayed 20 mg PO DAILY #90 caps 05/29/23 10/04/23 Rx release tiotropium bromide 18 mcg capsule 1 cap inhalation DAILY 1 month #30 07/18/23 10/04/23 Rx with inhalation device (Spiriva caps with HandiHaler) atorvastatin 10 mg tablet 10 mg PO HS #100 tabs 08/01/23 10/04/23 Rx tamsulosin 0.4 mg capsule (Flomax) 0.4 mg PO DAILY #30 caps 09/05/23 10/04/23 Rx Patient hx anesthesia problems: none Family hx anesthesia problems: none Results Review: All pre-operative results and documents have been reviewed as part of the pre-operative evaluation. [facility] Past Medical History Medical History Abdominal aortic aneurysm (AAA) repaired in 2014 Anemia Coronary artery disease CPAP (continuous positive airway pressure) dependence Cyst Dysphagia Essential (primary) hypertension Gastroesophageal reflux disease with stricture Heart attack High cholesterol Hyponatremia Lung nodules Non-healing skin lesion of nose CEDRIC on CPAP Pneumonia Pneumonia due to 2019 novel coronavirus Seborrheic keratoses Thrush Weight loss Surgical History Surgical History H/O abdominal surgery Lower abdominal aneurysm repair/AAA repair H/O cataract extraction H/O heart bypass surgery History of ear surgery History of laparoscopic cholecystectomy Hx of CABG Triple bypass Family History Family History Mother Family history of lung cancer Father Non-Hodgkin lymphoma Social History Social History Social History: He lives with his and daughter. The patient has 5 of his own children and 3 step children and 2 adopted children. The patient worked for [employer] and [employer] and he retired from the [employer]. The patient stated that he does continue to smoke daily. Denies any alcohol marijuana or illicit drugs. Code status full code. The patient stated he does not want to live in a vegetative state. He stated he only wants to be on a ventilator for 48 hours. Smoking packs per day: 1 Smoking cigarettes per day: 20.0 Years smoked: 61 Smoking pack-years: 61.00 Smoking status: Current every day smoker Tobacco type: cigarettes Alcohol intake: current Drinks per week: 1 Alcohol use details: ONE BEER WEEKLY Substance use: never Substance use type: does not use Lack of Transportation: No Lack of Food: Never True Current Housing: I Have Housing Concerned About Future Housing: No Difficulty Paying Gas/Electric Bills: No Difficulty Paying for Meds: No Currently Unemployed:
--- NOTE | 2023-10-16 08:30 | PM.HPGS ---
History of Present Illness History of Present Illness Consent: Risks, benefits, and alternatives have been discussed and questions answered. Patient agrees to proceed with procedure. Chief complaint: GERD,Dysphagia,Esophageal Obstruction Narrative: Ranjit Knight is a 82 year old male here for EGD, history of dysphagia and was seen by Dr Maynard in the past.? Solid foods will catch in the mid substernal portion the chest.?EGD 05/2023 with stricture at GEJ and cricopharyngeous, both dilated up to 15mm Review of Systems Review of Systems: All systems reviewed & are unremarkable except as noted in HPI and below PMFSH Past Medical History Medical History Abdominal aortic aneurysm (AAA) repaired in 2014 Anemia Coronary artery disease CPAP (continuous positive airway pressure) dependence Cyst Dysphagia Essential (primary) hypertension Gastroesophageal reflux disease with stricture Heart attack High cholesterol Hyponatremia Lung nodules Non-healing skin lesion of nose CEDRIC on CPAP Pneumonia Pneumonia due to 2019 novel coronavirus Seborrheic keratoses Thrush Weight loss Surgical History Surgical History H/O abdominal surgery Lower abdominal aneurysm repair/AAA repair H/O cataract extraction H/O heart bypass surgery History of ear surgery History of laparoscopic cholecystectomy Hx of CABG Triple bypass Family History Family History Mother Family history of lung cancer Father Non-Hodgkin lymphoma Social History Social History Social History: He lives with his and daughter. The patient has 5 of his own children and 3 step children and 2 adopted children. The patient worked for [employer] and the [employer] and he retired from the [employer]. The patient stated that he does continue to smoke daily. Denies any alcohol marijuana or illicit drugs. Code status full code. The patient stated he does not want to live in a vegetative state. He stated he only wants to be on a ventilator for 48 hours. Smoking packs per day: 1 Smoking cigarettes per day: 20.0 Years smoked: 61 Smoking pack-years: 61.00 Smoking status: Current every day smoker Tobacco type: cigarettes Alcohol intake: current Drinks per week: 1 Alcohol use details: ONE BEER WEEKLY Substance use: never Substance use type: does not use Lack of Transportation: No Lack of Food: Never True Current Housing: I Have Housing Concerned About Future Housing: No Difficulty Paying Gas/Electric Bills: No Difficulty Paying for Meds: No Currently Unemployed: No Education: High School Diploma/GED Difficulty w/ Childcare or Family Care: No Living arrangements: with family Occupation/Education: retired Gender identity (if verbalized by the patient): Male Spiritual care concerns: No Agree to blood products: Yes Meds Home Medications and Allergies Home Medications Medication Instructions Recorded Confirmed Type cetirizine 10 mg tablet (Zyrtec) 10 mg PO DAILY 02/03/23 10/04/23 History fluticasone 250 mcg-salmeterol 50 See Rx Instructions .Route .COMPLEX 02/21/23 10/04/23 History mcg/dose blistr powdr for inhalation (Advair Diskus) lisinopril 10 mg tablet 10 mg PO DAILY #100 tabs 04/27/23 10/04/23 Rx omeprazole 20 mg capsule,delayed 20 mg PO DAILY #90 caps 05/29/23 10/04/23 Rx release tiotropium bromide 18 mcg capsule 1 cap inhalation DAILY 1 month #30 07/18/23 10/04/23 Rx with inhalation device (Spiriva caps with HandiHaler) atorvastatin 10 mg tablet 10 mg PO HS #100 tabs 08/01/23 10/04/23 Rx tamsulosin 0.4 mg capsule (Flomax) 0.4 mg PO DAILY #30 caps 09/05/23 10/04/23 Rx Allergies Allergy/AdvReac Type Severity Reaction Sta
[2023-10-16 08:44] VITALS: BP 105/58; PULSE 64; RESP 18; O2SAT 97
[2023-10-16 08:54] VITALS: BP 104/62; BP 109/61; PULSE 61; PULSE 63; RESP 18; RESP 20; O2SAT 100; O2SAT 99
== END 2023-10-16 09:15 | disposition home or self-care (01) ==
PROVIDERS: PCP Family Medicine; Visit Provider Internal Medicine Gastroenterology
PROC: 0DJ08ZZ Inspection of Upper Intestinal Tract, Via Natural or Artificial Opening Endoscopic (ICD-10-PCS; CPT 43235; principal; 2023-10-16 09:00)
DX: K22.2 Esophageal obstruction (principal); K22.5 Diverticulum of esophagus, acquired; K44.9 Diaphragmatic hernia without obstruction or gangrene; I10 Essential (primary) hypertension; K21.9 Gastro-esophageal reflux disease without esophagitis; D64.9 Anemia, unspecified; I25.10 Atherosclerotic heart disease of native coronary artery without angina pectoris; I25.2 Old myocardial infarction; E78.00 Pure hypercholesterolemia, unspecified; E87.1 Hypo-osmolality and hyponatremia; F17.210 Nicotine dependence, cigarettes, uncomplicated; G47.33 Obstructive sleep apnea (adult) (pediatric); I71.40 Abdominal aortic aneurysm, without rupture, unspecified; Z79.51 Long term (current) use of inhaled steroids; Z99.89 Dependence on other enabling machines and devices; Z98.890 Other specified postprocedural states; Z90.49 Acquired absence of other specified parts of digestive tract; Z95.1 Presence of aortocoronary bypass graft; Z80.1 Family history of malignant neoplasm of trachea, bronchus and lung
CPT/HCPCS: 43249; C1726; J2704; J7120

== ENCOUNTER 2023-10-29 12:50 | Emergency (ER) | payer MEDICARE, SELFPAY ==
--- NOTE | ~2023-10-29 | XR_ITS ---
XR ankle LT min 3V DATE: 10/29/2023 13:20 INDICATION: Left ankle pain following a fall TECHNIQUE: 4 views of left ankle COMPARISON: None FINDINGS: Osteopenia. Mild plantar calcaneal enthesopathy. No fracture or dislocation of the ankle with disruption of the ankle mortise. No periosteal reaction or bone destruction. Arterial calcifications. IMPRESSION: No fracture or dislocation of the ankle Plantar calcaneal enthesopathy Osteopenia Reviewed, dictated and finalized at location A.
--- NOTE | ~2023-10-29 | XR_ITS ---
XR foot LT min 3V DATE: 10/29/2023 13:20 INDICATION: Left foot pain TECHNIQUE: 4 views COMPARISON: None FINDINGS: Osteopenia. Mild plantar calcaneal enthesopathy. There is slight deformity of the proximal shaft of the proximal phalanx of the fifth digit which may be due to recent or old fracture. Recommend clinical correlation for tenderness. If there is need for further evaluation consider dedicated 4 view left fifth toe radiographic examination. No other fract ure or dislocation, periosteal reaction or bone destruction is detected. Mild loss of joint space at the first metatarsophalangeal joint consistent with osteoarthritis. IMPRESSION: Possible recent or remote fracture of the proximal shaft of the fifth toe proximal phalan x Osteopenia Plantar calcaneal enthesopathy Reviewed, dictated and finalized at location A. IMPRESSION: Possible recent or remote fracture of the proximal shaft of the fif th toe proximal phalanx Osteopenia Plantar calcaneal enthesopathy
[2023-10-29 13:01] VITALS: BP 93/65; PULSE 64; RESP 16; TEMP 37.2; O2SAT 98
[2023-10-29 13:03] VITALS: BP 93/65; PULSE 64; RESP 16; TEMP 37.2; O2SAT 98
--- NOTE | 2023-10-29 13:03 | ED.GENADULT ---
HPI - General Adult General Chief complaint: Extremity Injury, Lower Stated complaint: Injured Left Ankle/Right Side Source: patient Mode of arrival: ambulatory Limitations: no limitations History of Present Illness HPI narrative: 82 y/o male presented for c/o left foot and ankle pain after he missed a step and fell today about 30[place]. Granddaughter says he landed on the right side but denies any pain to the ribs, flank or abdomen. Has not taken anything for pain. Pt is baseline assist of 1-2. Related Data Home Medications Medication Instructions Recorded Confirmed cetirizine 10 mg tablet (Zyrtec) 10 mg PO DAILY 02/03/23 10/04/23 fluticasone 250 mcg-salmeterol 50 See Rx Instructions .Route .COMPLEX 02/21/23 10/04/23 mcg/dose blistr powdr for inhalation (Advair Diskus) Allergies Allergy/AdvReac Type Severity Reaction Status Date / Time Penicillins Allergy Severe difficulty Verified 10/29/23 13:01 moving legs Iodinated Contrast Media Allergy Intermediate Hives Verified 10/29/23 13:01 Review of Systems Review of Systems: CONSTITUTIONAL: Denies body aches, fever, chills EYES: Denies visual changes ENT: Denies rhinorrhea, congestion CARDIOVASCULAR: Denies chest pain, palpitations, or edema. RESPIRATORY: Denies cough or dyspnea. GASTROINTESTINAL: Denies abdominal pain, nausea, vomiting, or diarrhea. SKIN: Denies rash, itching, or wounds. MUSCULOSKELETAL: Denies back pain, joint pain, or myalgia. NEUROLOGIC: Denies headache, numbness, tingling, or weakness. PSYCH: Denies depression or anxiety. All systems reviewed & are unremarkable except as noted in HPI and below PMFSH Past Medical History Medical History Abdominal aortic aneurysm (AAA) repaired in 2014 Anemia Coronary artery disease CPAP (continuous positive airway pressure) dependence Cyst Dysphagia Essential (primary) hypertension Gastroesophageal reflux disease with stricture Heart attack High cholesterol Hyponatremia Lung nodules Non-healing skin lesion of nose CEDRIC on CPAP Pneumonia Pneumonia due to 2019 novel coronavirus Seborrheic keratoses Thrush Weight loss Surgical History Surgical History H/O abdominal surgery Lower abdominal aneurysm repair/AAA repair H/O cataract extraction H/O heart bypass surgery History of ear surgery History of laparoscopic cholecystectomy Hx of CABG Triple bypass Family History Family History Mother Family history of lung cancer Father Non-Hodgkin lymphoma Social History Social History Social History: He lives with his and daughter. The patient has 5 of his own children and 3 step children and 2 adopted children. The patient worked for [employer] and [employer] and he retired from the [employer]. The patient stated that he does continue to smoke daily. Denies any alcohol marijuana or illicit drugs. Code status full code. The patient stated he does not want to live in a vegetative state. He stated he only wants to be on a ventilator for 48 hours. Smoking packs per day: 1 Smoking cigarettes per day: 20.0 Years smoked: 61 Smoking pack-years: 61.00 Smoking status: Current every day smoker Tobacco type: cigarettes Alcohol intake: current Drinks per week: 1 Alcohol use details: ONE BEER WEEKLY Substance use: never Substance use type: does not use Lack of Transportation: No Lack of Food: Never True Current Housing: I Have Housing Concerned About Future Housing: No Difficulty Paying Gas/Electric Bills: No Difficulty Paying for Meds: No Currently Unemployed: No Education: High School Diploma/GED Difficulty w/ Childcare or Family Care: No Living arrangements: with [facility]
[2023-10-29] MEDS: ACETAMINOPHEN 500 MG TABLET 1000 MG PO (13:59)
== END 2023-10-29 14:04 | disposition home or self-care (01) ==
PROVIDERS: Emergency Provider Nurse Practitioner Family; PCP Family Medicine
DX: S90.02XA Contusion of left ankle, initial encounter (principal); S90.32XA Contusion of left foot, initial encounter; W19.XXXA Unspecified fall, initial encounter; F17.210 Nicotine dependence, cigarettes, uncomplicated; I25.10 Atherosclerotic heart disease of native coronary artery without angina pectoris; I10 Essential (primary) hypertension; E78.00 Pure hypercholesterolemia, unspecified; G47.33 Obstructive sleep apnea (adult) (pediatric); I25.2 Old myocardial infarction; K21.9 Gastro-esophageal reflux disease without esophagitis; Z95.5 Presence of coronary angioplasty implant and graft
CPT/HCPCS: 73610; 73630; 99214; A9270; G0463

== ENCOUNTER 2023-11-10 10:43 | Emergency (ER) | payer MEDICARE, SELFPAY ==
--- NOTE | ~2023-11-10 | XR_ITS ---
Clinical Indication: Weakness PA and lateral views of the chest: Comparison: 11/06/2022 Findings: There is chronic right upper lobe scarring and pleural parenchymal thickening. COPD pattern present.. Cardiomediastinal silhouette is stable, with pacemaker device. Bones and soft tissues are unremarkable. Impression: No acute abnormality evident. Stable COPD and probable right upper lobe scarring/pleural parenchymal thickening. Pacemaker device. Reviewed, dictated and finalized at location . Impression: No acute abnormality evident. Stable COPD and probable right upper lobe scarring/pleural parenchymal thickeni ng. Pacemaker device.
--- NOTE | ~2023-11-10 | CT_ITS ---
EXAMINATION: CT abdomen pelvis wo con DATE: 11/10/2023 11:26 INDICATION: Constipation. Lower abdominal pain. TECHNIQUE: Computed tomography (CT) of the abdomen and pelvis was performed without intravenous contr ast. Automated exposure control and iterative reconstruction technique were employed. The dose-length product was 223.94 mGy-cm. COMPARISON: CT abdomen and pelvis 09/17/2023 FINDINGS: The visualized portions of lung bases demonstrate severe emphysema. There is mucous pluggin g in the lower lobes. There are tree-in-bud opacities in the lower lobes. There is mild atelectasis b ilaterally. No pleural effusion. The heart size is normal. There are pacer wires in right atrium and right ventricle. No pericardial effusion. There is a large sliding hiatal hernia. The liver, spleen, pancreas, and adrenal glands are normal. There are cysts in the kidneys measuring up to 8.5 cm on the right. There is mild atrophy of left kidney. There is calcified atherosclerosis of the aorta and man y of the other arteries. There is a stent graft in abdominal aorta and the common carotid arteries. 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 Stool distends the rectosigmoid. The prostate is moderately enlarged. The appendix is not visualized. There are no pathologically enlarged lymph n odes. There is no free intraperitoneal fluid. There is severe lumbar spondylosis. There is a chronic benign bone island in L1 vertebral body. IMPRESSION: 1. Stool distends the rectosigmoid. 2. Severe emphysema. 3. Mucus plugging and mild pneumonia in the lower lobes. 4. Large sliding hiatal hernia. Reviewed, dictated and finalized at location A.
--- NOTE | 2023-11-10 10:45 | ECG_ITS ---
SEE SCANNED COPY FOR CONFIRMED REPORT MTDD
[2023-11-10 10:46] VITALS: BP 113/71; PULSE 84; RESP 18; TEMP 36.5; O2SAT 96
[2023-11-10 10:59] LABS: Basophils Percent Auto 0.5 % (0.2-1.2); Eosinophils Percent Auto 0.5 % (0-4.4); Hemoglobin 13.7 g/dL (14.0-18.0); Immature Granulocyte Absolute 0.02 K/mm3 (0.00-0.031); Immature Granulocyte Percent A 0.2 % (0-0.5); Lymphocytes Absolute Auto 0.97 K/mm3 (0.9-3.2); Lymphocytes Percent Auto 11.7 % (18.3-44.2); Mean Corpuscular HGB Conc 31.9 g/dl (32-36); Mean Corpuscular Volume 94.3 fl (80-100); Mean Platelet Volume 9.5 fl (7.4-10.4); Monocytes Absolute Auto 0.5 K/mm3 (0.1-0.6); Monocytes Percent Auto 5.7 % (2.6-8.5); Neutrophils Absolute Auto 6.8 K/mm3 (1.3-6.7); Neutrophils Percent Auto 81.4 % (45.5-73.1); Platelet Count Result 163 k/mm3 (150-375); Red Blood Count 4.56 M/mm3 (4.6-6.20); Red Cell Distribution Width 15.4 % (11.5-14.5); White Blood Count 8.3 K/mm3 (4.5-10.0)
[2023-11-10 11:01] VITALS: BP 115/78; PULSE 66; RESP 19; O2SAT 96
[2023-11-10 11:10] LABS: Alanine Aminotransferase 19 U/L (6-50); Albumin Level 4.4 g/dL (3.5-5.1); Alkaline Phosphatase 119 U/L (38-126); Anion Gap 7 mmol/L (4-12); Aspartate Amino Transferase 32 U/L (17-59); Bilirubin,Total 0.7 mg/dL (0.2-1.3); Blood Urea Nitrogen 41 mg/dL (9-20); Calcium 9.5 mg/dL (8.4-10.2); Carbon Dioxide 28 mmol/L (22-30); Chloride 104 mmol/L (98-107); Estimated CRCL calculation 44 ml/min; Estimated Glomerular Filt Rate > 60; Glucose 103 mg/dL (65-110); Potassium 4.9 mmol/L (3.4-5.0); Sodium 139 mmol/L (137-145)
[2023-11-10 11:16] VITALS: BP 130/91; PULSE 80; RESP 20; O2SAT 99
--- NOTE | 2023-11-10 11:19 | PC.NURSE ---
Pt taken to ct at this time
--- NOTE | 2023-11-10 11:35 | PC.NURSE ---
pt returned to h3 at this time
[2023-11-10] MEDS: SODIUM CHLORIDE 0.9% IV 1,000 ML 999 ML IV CONT (11:36)
--- NOTE | 2023-11-10 11:42 | ED.WEAKNESS ---
HPI - Weakness General Chief complaint: Weakness Stated complaint: weakness, i'm impacted Time Seen by Provider: 11/10/23 11:01 Source: patient and family Mode of arrival: ambulatory Limitations: no limitations History of Present Illness HPI Narrative: Patient is an 82-year-old male who presents the ED with report of constipation. Patient reports he has been unable to have a bowel movement for the last several days. Feels as though he is impacted. Has history of similar symptoms, has required enemas/digital impaction in the ED previously. Daughter at bedside reports patient is on duplex and MiraLax regimen, but still has chronic issues with constipation. He is not on any opioids. Patient denies significant abdominal pain or rectal pain, nausea, vomiting, fevers. He does admit to mild difficulty urinating, which daughter reports is not a new issue for him. Daughter reports patient has a large hiatal hernia and is unable to swallow a large amount of solids. Takes small bites and drinks Boosts throughout the day. He is scheduled to see a surgeon about this with [facility] and has a motility test scheduled in next few weeks. This has been ongoing issue for past 6+ months. Related Data Home Medications Medication Instructions Recorded Confirmed cetirizine 10 mg tablet (Zyrtec) 10 mg PO DAILY 02/03/23 11/03/23 Allergies Allergy/AdvReac Type Severity Reaction Status Date / Time Penicillins Allergy Severe difficulty Verified 11/10/23 10:50 moving legs Iodinated Contrast Media Allergy Intermediate Hives Verified 11/10/23 10:50 Review of Systems Review of Systems: CONSTITUTIONAL: Denies fever, chills, or sweats. GASTROINTESTINAL: See HPI. GENITOURINARY: See HPI. All systems reviewed & are unremarkable except as noted in HPI and below [facility] Past Medical History Medical History Abdominal aortic aneurysm (AAA) repaired in 2014 Anemia Coronary artery disease CPAP (continuous positive airway pressure) dependence Cyst Dysphagia Essential (primary) hypertension Gastroesophageal reflux disease with stricture Heart attack High cholesterol Hyponatremia Lung nodules Non-healing skin lesion of nose CEDRIC on CPAP Pneumonia Pneumonia due to 2019 novel coronavirus Seborrheic keratoses Thrush Weight loss Surgical History Surgical History H/O abdominal surgery Lower abdominal aneurysm repair/AAA repair H/O cataract extraction H/O heart bypass surgery History of ear surgery History of laparoscopic cholecystectomy Hx of CABG Triple bypass Family History Family History Mother Family history of lung cancer Father Non-Hodgkin lymphoma Social History Social History Social History: He lives with his and daughter. The patient has 5 of his own children and 3 step children and 2 adopted children. The patient worked for [employer] and the [employer] and he retired from the [employer]. The patient stated that he does continue to smoke daily. Denies any alcohol marijuana or illicit drugs. Code status full code. The patient stated he does not want to live in a vegetative state. He stated he only wants to be on a ventilator for 48 hours. Smoking packs per day: 1 Smoking cigarettes per day: 20.0 Years smoked: 61 Smoking pack-years: 61.00 Smoking status: Current every day smoker Tobacco type: cigarettes Alcohol intake: current Drinks per week: 1 Alcohol use details: ONE BEER WEEKLY Substance use: never Substance use type: does not use Lack of Transportation: No Lack of Food: Never True Current Housing: I Have Housing Concerned About Future Housing: No Difficulty Paying Gas/Electric Bills: No Difficulty Paying for Meds: No Currently
[2023-11-10 13:02] VITALS: BP 124/73; PULSE 73; RESP 16; O2SAT 100
[2023-11-10 13:05] LABS: Appearance Urine Clear (Clear); Bilirubin Urine Negative (Negative); Blood Urine Negative (Negative); Color Urine Yellow (Yellow); Glucose Urine UA Negative (Negative); Ketones Urine Negative (Negative); Leukocyte Esterase Ur Negative LEU/UL (Negative); Nitrate Urine Negative (Negative); Protein Urine Negative (Negative); Specific Grav Ur 1.019 (1.001-1.035); pH Urine 5.5 (5.0-9.0)
[2023-11-10 13:13] LABS: Add Urine Microscopic? NO
[2023-11-10 13:45] VITALS: BP 118/69; PULSE 69; RESP 16; O2SAT 100
== END 2023-11-10 13:47 | disposition home or self-care (01) ==
PROVIDERS: Family Medicine; Emergency Provider Physician Assistant; PCP Family Medicine
DX: K59.00 Constipation, unspecified (principal); I25.10 Atherosclerotic heart disease of native coronary artery without angina pectoris; I10 Essential (primary) hypertension; K21.9 Gastro-esophageal reflux disease without esophagitis; G47.33 Obstructive sleep apnea (adult) (pediatric); Z99.89 Dependence on other enabling machines and devices; F17.210 Nicotine dependence, cigarettes, uncomplicated
CPT/HCPCS: 36415; 71046; 74176; 80053; 81003; 85025; 93005; 96360; 99284; J7030

== ENCOUNTER 2023-11-27 13:23 | Outpatient (CLI) | payer MEDICARE, SELFPAY ==
--- NOTE | ~2023-11-27 | XR_ITS ---
MODIFIED ESOPHAGRAM HISTORY: Dysphagia. TECHNIQUE: Modified barium esophagram was performed on 11/27/2023. I administered fluoroscopy and perf ormed the exam with speech pathologist. Patient was seated for lateral fluoroscopic imaging for gaurav stion of thin liquids, pudding, solids and quantified amounts, followed by thin liquids in uncontroll ed amounts. This was recorded on tape. A single fluoroscopic spot image was also recorded. The DAP fo r this procedure was 1.542 Gycm2. The amount of fluoroscopy time used during this procedure was 4.0 m inutes. FINDINGS: Oral stage: Reduced lingual movement. Pharyngeal stage: Reduced laryngeal elevation, laryngeal adduction and tongue base retraction. There is vallecular residue with laryngeal penetration and small amount of aspiration. Cervical/esophageal stage: Adequate function. IMPRESSION: Pharyngeal dysphagia with laryngeal penetration and aspiration. Please correlate with sp eech pathologist findings and specific feeding recommendations. Reviewed, dictated and finalized at location A. IMPRESSION: Pharyngeal dysphagia with laryngeal penetration and aspiration. Pl ease correlate with speech pathologist findings and specific feeding recommenda tions.
--- NOTE | 2023-11-27 15:11 | REHSTMBS ---
Assessment and note entered by Abby Cook, [employer]LA TE[employer] Modified Barium Swallow Evaluation Feeding Type Recommended Oral Food Consistency Pureed, Level 4 Liquid Consistency Mildly Thick (2) Treatment Recommendations Effortful Swallow,Laryngeal Elevation Exerc,Tongue Base Exercise,Vocal Fold Adduction Exer ST Clinical Summary MODIFIED BARIUM SWALLOW The patient was seen for a Modified Barium Swallow study at the request of his physician, Dr. Pritchett. Patient reported that he cannot swallow. He continually pointed to the base of his throat saying both food and water reach that area and then do not go down. He reported a history esophageal issues and stated he has EGD's two times a month. When therapist questioned that frequency, he insisted it was true. He also reports a history of a hiatal hernia but no concerns with acid reflux. He was accompanied by his granddaughter who reported after the swallow evaluation that he drinks 3-4 Boosts a day (which he also reported) and that they use some powder thickener in his liquids but he is not very excited about that idea. The patient was viewed in the lateral position to the level of C5/C6. Patient was first given a bite of pudding mixed with semi-solid contrast medium, then thin liquid contrast medium, mildly thick liquid contrast medium, and then a piece of fruit cocktail coated with the semi-solid mixture. The following impairments were observed: Oral stage: Given pudding per spoon, some material was observed to fall off the base of tongue into the valleculae, triggering one swallow while the rest of the material remained on the tongue, requiring a secondary swallow. After this, no additional unusual observations were made. Pharyngeal Stage: Reduced laryngeal elevation contributing to mild laryngeal penetration on thin liquid. Reduced base of tongue retraction contributing to vallecular residue. Penetration with aspiration on thin liquid and trace penetration on mildly thick liquid.
== END 2023-11-27 13:24 | disposition home or self-care (01) ==
PROVIDERS: PCP Family Medicine; Visit Provider Internal Medicine Gastroenterology
DX: R13.13 Dysphagia, pharyngeal phase (principal)
CPT/HCPCS: 92611